=== PATIENT | female | born 1975 | race Asian ===

== ENCOUNTER → 2018-05-24 | Day surgery (SDC) | payer OTHER ==
--- NOTE | 2018-05-25 18:51 | PATH ---
Surgical Pathology Report Patient Name: ANGELIA DEL RIO [facility]. Rec. #: [id number] /Age/Gender: 1975 (Age: 42) / F Account: [id number] Location: RADIOLOGY [facility] Taken: 05/24/2018 Received: 05/24/2018 Reported: 05/25/2018 Physicians: Chandni Prado M.D. Specimen(s) Received A: LEFT BREAST 12-2:00 B: LEFT BREAST 2:00 Clinical History Palpable mass Mammographic findings, ultrasound findings: Highly suspicious/malignant Final Diagnosis A. Breast, left, 12-2:00, core biopsy: Invasive DUCTAL carcinoma, POORLY DIFFERENTIATED, measuring at least 1.1 cm in this material. B. Breast, left, 2:00, core biopsy: Invasive DUCTAL carcinoma, POORLY DIFFERENTIATED, measuring at least 9 MM in this material. Comment: Immunohistochemical stain performed (part A) and interpreted at [facility] show E-cadherin is positive, supportive of ductal phenotype. ER, WV, Her2 (IHC) & Ki-67 studies are pending. Findings will be reported separately. Findings discussed with Dr. Hoskins. Electronically Signed Opal Alvarado M.D. Addendum Reported: 05/26/2018 Addendum Diagnosis Results of Estrogen Receptor (ER) and Progesterone Receptor (WV) studies performed on block "A" at [facility] are as follows: ER (clone [id number] mouse monoclonal antibody by [employer]): ~30% nuclear staining with weak to moderate intensity (Positive). WV (clone16 mouse monoclonal antibody by [employer]): 0% nuclear staining (Negative). Positive and negative controls (internal if applicable) show appropriate results. Formalin fixation and cold ischemic times are within current ASCO/CAP recommendations for ER, WV and Her2 testing. Results of Her2 (IHC) & Ki-67 studies performed on block "A" at [place], [place] ([id number]) are as follows: Her2 IHC (EP3 from [employer], formerly known as [id number], using [employer]o Polymer Refine detection kit): 3+ (Positive). Ki-67: ~45% (High proliferative index). Positive and negative controls (internal if applicable) show appropriate results. Opal Alvarado M.D. Gross Description A. Received in formalin labeled "left 12-2 o'clock," are 3 rivers-yellow, cylindrical portions of fibroadipose tissue ranging from 1.0-1.3 cm in length and averaging 0.1 cm diameter. The specimens are submitted in toto in one cassette. B. Received in formalin labeled "left breast 2:00," are 2 rivers-yellow, cylindrical portions of fibroadipose tissue averaging 1.1 cm in length and averaging 0.1 cm in diameter. The specimens are submitted in toto in one cassette. Time to formalin fixation: Less than one minute Total formalin fixation time: Approximately 7 hours. 05/24/2018 saudi05/24/2018
== END | disposition home or self-care (01) ==
LOC: JRADUS 09:16 → JRADUS-SUR 09:28 → EDSTATUS 10:00
PROVIDERS: ATTEND Internal Medicine
PROC: 0HBU3ZX Excision of Left Breast, Percutaneous Approach, Diagnostic (ICD-10-PCS; principal; 2018-05-24)
DX: C50.412 Malignant neoplasm of upper-outer quadrant of left female breast (principal)
CPT/HCPCS: 19083; 19084; 77065-TC; 87899; 88305-TC; 88342-TC; A4648

== ENCOUNTER → 2018-06-26 | Day surgery (SDC) | payer OTHER ==
--- NOTE | 2018-06-27 07:01 | OP ---
DATE OF OPERATION: 06/26/2018 PREOPERATIVE DIAGNOSIS: Left axillary adenopathy, suspicious. POSTOPERATIVE DIAGNOSIS: Left axillary adenopathy, suspicious. PROCEDURE PERFORMED: Left ultrasound-guided core biopsy and clip placement. ANESTHESIA: Local. ATTENDING SURGEON: Katie Gusman MD ESTIMATED BLOOD LOSS: Minimal. COMPLICATIONS: None. DESCRIPTION OF PROCEDURE: The patient was made aware of the risks and benefits of the procedure and consented. She was placed in the supine position. Under sterile conditions, with 1% lidocaine for local anesthesia, a small loida was made in the skin. Using an inferolateral approach, under ultrasound guidance, with a 13-gauge needle, multiple cores were obtained and submitted to Pathology. Likewise, under ultrasound guidance, a HydroMARK open clip placed into the biopsy region. This was well tolerated by the patient. Steri-Strips and a sterile bandage were applied. We will contact her with the results. KATIE GUSMAN M.D. [id number]
--- NOTE | 2018-06-27 15:34 | PATH ---
Surgical Pathology Report Patient Name: ANGELIA DEL RIO Med. Rec. #: [id number] /Age/Gender: 1975 (Age: 42) / F Account: [id number] Location: [facility] Taken: 06/26/2018 Received: 06/26/2018 Reported: 06/27/2018 Physicians: Chandni Oswald M.D. Specimen(s) Received LEFT AXILLA LYMPH NODE BIOPSY Clinical History Non-palpable lesion Ultrasound findings: Highly suspicious/malignant Final Diagnosis LYMPH NODE, LEFT AXILLA, CORE BIOPSY: METASTATIC CARCINOMA, EXTENSIVELY INVOLVING LYMPH NODE, CONSISTENT WITH ORIGIN FROM KNOWN LEFT BREAST PRIMARY. Comment: See also concurrent left breast core biopsy report ([id number]). Electronically Signed Iris Cardona M.D. Gross Description Received in formalin, labeled "left axilla, lymph node, biopsy" are five cores of light rivers and yellow rivers tissue admixed with blood clot, ranging from 0.5-1.3 cm in length with a diameter up to 0.2 cm. Entirely submitted in one cassette. Time to formalin fixation: Not given. Total formalin fixation: Approximately 8 hours AE/06/26/2018 ebram/06/26/2018
== END | disposition home or self-care (01) ==
LOC: FRADUS-SUR 08:40
PROVIDERS: ATTEND Surgery Surgical Oncology
PROC: 07B63ZX Excision of Left Axillary Lymphatic, Percutaneous Approach, Diagnostic (ICD-10-PCS; principal; 2018-06-26)
PROC: BH47ZZZ Ultrasonography of Upper Extremity (ICD-10-PCS; 2018-06-26)
DX: C77.3 Secondary and unspecified malignant neoplasm of axilla and upper limb lymph nodes (principal); R59.9 Enlarged lymph nodes, unspecified
CPT/HCPCS: 19083; 38505; 76942; 87899; 88305-TC; A4648

== ENCOUNTER 2018-06-29 10:34 | Day surgery (SDC) | payer OTHER ==
[2018-06-22 13:42] VITALS: BMI 32.2
--- NOTE | 2018-06-22 13:42 | HP ---
Admitting History and Physical - Primary Care Physician PCP: Allen Rubio - Admission Chief Complaint: Left breast cancer History of Present Illness: 43 year old premenapausal female with family H/O breast and ovarian cancer who found a palpable mass left breast 12:00 in May 2018. Mammogram and US showed 6.3. cm left breast UOQ and mutiple masses shruthi 12 to 2:00 region largest 3.5 cm. US core biopsy of both regions 12 to 2:00 and 2:00 showed invasive ductal carcinoma ER weakly + /CA - HER2 +. She is here for life port insertion for neoadjuvant chemotherapy. History Source: Patient Limitations to Obtaining History: No Limitations - Past Medical History Cardiovascular: Yes: HTN ...LMP: 07/17/14 - Past Surgical History Past Surgical History: Yes: None - Smoking History Smoking history: Never smoked - Alcohol/Substance Use Hx Alcohol Use: No Home Medications - Allergies Allergies/Adverse Reactions: Allergies Allergy/AdvReac Type Severity Reaction Status Date / Time No Known Allergies Allergy Verified 09/29/14 18:30 - Home Medications Home Medications: Ambulatory Orders Amlodipine Besylate 5 mg PO DAILY 06/22/18 Family Disease History - Family Disease History Family Disease History: CA: Grandparent (mat GM ovarian cancer 60's), Sister ( breast ca 46) Physical Examination Constitutional: Yes: Well Nourished Breast(s): Yes: Other ( c cup breast which are symmetrical palpable 4 cm mass flt left breast 12:00 periareolar border whcih is feely mobile no palpable densities in right breast or adenopathy bilaterally) Problem List - Problems (1) Breast cancer, left breast Code(s): C50.912 - MALIGNANT NEOPLASM OF UNSPECIFIED SITE OF LEFT FEMALE BREAST Qualifiers: Breast location: areola Estrogen receptor status: positive Patient sex: female Qualified Code(s): C50.012 - Malignant neoplasm of nipple and areola, left female breast; Z17.0 - Estrogen receptor positive status [ER+] Assessment/Plan Life port insertion for chemotherapy
[2018-06-29] MEDS ORDERED: LIDOCAINE HCL 1% PRESERVATIVE FREE - 30ML VIAL ONE (11:26)
[2018-06-29] MEDS ORDERED: LIDOCAINE HCL 1%, 10 MG/ML (50 mL VIAL) IJ ONE ×2 (13:19)
[2018-06-29] MEDS ORDERED: BUPIVACAINE HCL 0.25% 125 MG/50 ML VIAL ONE (13:45)
[2018-06-29] MEDS ORDERED: BUPIVACAINE HCL/PF 0.25% (2.5MG/ML) 10 ML VIAL IJ ONE (13:48)
[2018-06-29] MEDS ORDERED: KETOROLAC TROMETHAMINE 30 MG/1 ML VIAL IVPUSH PRN (14:00)
[2018-06-29] MEDS ORDERED: DEXTROSE 5%-0.45% SALINE 1,000 ML IV SCH (14:00)
[2018-06-29] MEDS ORDERED: ONDANSETRON 4 MG/2 ML VIAL IVPUSH PRN ×2 (14:00→14:01)
[2018-06-29] MEDS ORDERED: oxyCODONE HCL 5 MG TABLET PO PRN ×2 (14:01)
[2018-06-29] MEDS ORDERED: LACTATED RINGERS SOLUTION 1,000 ML IV SCH (14:15)
[2018-06-29 15:24] VITALS: PULSE 67; TEMP 97.3
[2018-06-29 16:15] VITALS: BP 138/79
== END 2018-06-29 16:30 | disposition home or self-care (01) ==
LOC: FASU 10:34
PROVIDERS: ATTEND Surgery Surgical Oncology
PROC: B518ZZA Fluoroscopy of Superior Vena Cava, Guidance (ICD-10-PCS; 2018-06-29)
PROC: 02HV33Z Insertion of Infusion Device into Superior Vena Cava, Percutaneous Approach (ICD-10-PCS; principal; 2018-06-29 13:10)
DX: C50.412 Malignant neoplasm of upper-outer quadrant of left female breast (principal)
CPT/HCPCS: 36561; 77001; C1788; 71045-TC-FY; 84703; J1644

== ENCOUNTER 2018-07-25 07:15 | Day surgery (SDC) | payer OTHER ==
[2018-07-25] MEDS ORDERED: ACETAMINOPHEN 325 MG TABLET (FP) PO ONE (09:00)
[2018-07-25] MEDS ORDERED: DEXAMETHASONE SODIUM PHOSPHATE 20 MG, DIPHENHYDRAMINE 50 MG in SODIUM CHLORIDE 100 ML IVPB ONE (09:00)
[2018-07-25] MEDS ORDERED: PALONOSETRON HCL 0.25 MG/5 ML VIAL IVPUSH ONE (09:00)
[2018-07-25] MEDS ORDERED: FOSAPREPITANT DIMEGLUMINE 150 MG in SODIUM CHLORIDE 145 ML IVPB ONE (09:00)
[2018-07-25] MEDS ORDERED: PERTUZUMAB 840 MG in SODIUM CHLORIDE 250 ML IVPB ONE (09:30)
[2018-07-25 09:42] LABS: HEMATOCRIT 33.3 % (32.4-45.2); HEMOGLOBIN 10.7 GM/dL (10.7-15.3); MCH 22.3 pg (25.7-33.7); MEAN CELL VOLUME 69.6 fl (80-96); RBC 4.78 M/mm3 (3.60-5.2); RDW 18.3 % (11.6-15.6); WHITE BLOOD COUNT 6.2 K/mm3 (4.0-10.0)
[2018-07-25 09:49] LABS: PLATELET COUNT 387 K/MM3 (134-434)
[2018-07-25 10:06] LABS: ANION GAP 4 MMOL/L (8-16); BLOOD UREA NITROGEN 10.8 mg/dL (7-18); CALCIUM 9.3 mg/dL (8.5-10.1); CHLORIDE 106 mmol/L (98-107); CO2 29 mmol/L (21-32); CREATININE 0.8 mg/dL (0.55-1.3); GLUCOSE,RANDOM 92 mg/dL (74-106); POTASSIUM 4.2 mmol/L (3.5-5.1); SODIUM 140 mmol/L (136-145)
[2018-07-25 10:23] LABS: EOS % 3.5 % (0-4.5); LYMPH % 28.9 % (8-40); MONO % 7.8 % (3.8-10.2); NEUT % 58.8 % (42.8-82.8)
[2018-07-25] MEDS ORDERED: TRASTUZUMAB IVPB ONE (10:30)
[2018-07-25] MEDS ORDERED: SODIUM CHLORIDE IVPB ONE ×2 (10:30→13:00)
[2018-07-25] MEDS ORDERED: SODIUM CHLORIDE IV ONE (12:00)
[2018-07-25] MEDS ORDERED: DOCETAXEL IV ONE (12:00)
[2018-07-25] MEDS ORDERED: CARBOPLATIN IVPB ONE (13:00)
[2018-07-25 16:56] VITALS: TEMP 98
[2018-07-25] MEDS ORDERED: PORTA CATH FLUSH 10 ML IVPUSH ONE (16:56)
[2018-07-25 17:51] VITALS: BP 155/89; PULSE 70
== END 2018-07-25 17:53 | disposition home or self-care (01) ==
LOC: JONCCHEMO 07:15 → J7W 08:47 → JONCCHEMO 17:53
PROVIDERS: ATTEND Internal Medicine Hematology & Oncology
DX: Z51.11 Encounter for antineoplastic chemotherapy (principal); C50.912 Malignant neoplasm of unspecified site of left female breast
CPT/HCPCS: 36415; 80048; 82378; 84702; 85025; 85027; 86300; 96367; 96375; 96413; 96415; 96417; J1453; J2469; J9171; J9306; J9355

== ENCOUNTER 2018-07-26 08:55 | Day surgery (SDC) | payer OTHER ==
[2018-07-26] MEDS ORDERED: PEGFILGRASTIM 6 MG/0.6 ML DISP.SYRIN SQ ONE (16:00)
[2018-07-26 18:33] VITALS: BP 131/81; PULSE 89; TEMP 98.5
== END 2018-07-26 16:00 | disposition home or self-care (01) ==
LOC: JONCCHEMO 08:55 → J7W 15:27 → JONCCHEMO 16:00
PROVIDERS: ATTEND Internal Medicine Hematology & Oncology
PROC: 3E013GC Introduction of Other Therapeutic Substance into Subcutaneous Tissue, Percutaneous Approach (ICD-10-PCS; principal; 2018-07-26)
DX: C50.912 Malignant neoplasm of unspecified site of left female breast (principal); Z76.89 Persons encountering health services in other specified circumstances
CPT/HCPCS: 96372; J2505

== ENCOUNTER 2018-08-15 07:17 | Day surgery (SDC) | payer OTHER ==
[2018-08-15] MEDS ORDERED: DEXAMETHASONE SODIUM PHOSPHATE 20 MG, DIPHENHYDRAMINE 50 MG in SODIUM CHLORIDE 100 ML IVPB ONE (10:00)
[2018-08-15] MEDS ORDERED: PALONOSETRON HCL 0.25 MG/5 ML VIAL IVPUSH ONE (10:00)
[2018-08-15] MEDS ORDERED: ACETAMINOPHEN 325 MG TABLET (FP) PO ONE (10:00)
[2018-08-15] MEDS ORDERED: FOSAPREPITANT DIMEGLUMINE 150 MG in SODIUM CHLORIDE 150 ML IVPB ONE (10:00)
[2018-08-15] MEDS ORDERED: PERTUZUMAB 420 MG in SODIUM CHLORIDE 250 ML IVPB ONE ×2 (10:30→12:00)
[2018-08-15 10:43] LABS: BASO % 2.8 % (0-2.0); HEMATOCRIT 28.8 % (32.4-45.2); LYMPH % 23.6 % (8-40); MCH 21.9 pg (25.7-33.7); MCHC 31.4 g/dl (32.0-36.0); MEAN CELL VOLUME 69.9 fl (80-96); MEAN PLT VOLUME 7.6 fl (7.5-11.1); NEUT % 63.6 % (42.8-82.8); PLATELET COUNT 421 K/MM3 (134-434); RBC 4.12 M/mm3 (3.60-5.2); RDW 18.7 % (11.6-15.6)
[2018-08-15] MEDS ORDERED: TRASTUZUMAB IVPB ONE (11:00)
[2018-08-15] MEDS ORDERED: SODIUM CHLORIDE IVPB ONE ×2 (11:00→12:30)
[2018-08-15 11:10] LABS: ALBUMIN 3.7 g/dl (3.4-5.0); BILIRUBIN,DIRECT 0.1 mg/dL (0.0-0.2); BILIRUBIN,TOTAL 0.4 mg/dL (0.2-1); BLOOD UREA NITROGEN 12.3 mg/dL (7-18); CALCIUM 8.9 mg/dL (8.5-10.1); CREATININE 0.8 mg/dL (0.55-1.3); MAGNESIUM 2.6 mg/dL (1.8-2.4); POTASSIUM 3.9 mmol/L (3.5-5.1); TOT PROT 7.2 g/dl (6.4-8.2)
[2018-08-15] MEDS ORDERED: DOCETAXEL IV ONE (11:30)
[2018-08-15] MEDS ORDERED: SODIUM CHLORIDE IV ONE (11:30)
[2018-08-15] MEDS ORDERED: CARBOPLATIN IVPB ONE (12:30)
[2018-08-15 12:39] LABS: ANISOCYTOSIS 1+; MACROCYTOSIS 0; OVALOCYTE 1+; PLATELET ESTIMATE NORMAL; TEAR DROP CELLS 1+
[2018-08-15 19:03] VITALS: BP 144/89; PULSE 76; TEMP 98.2
[2018-08-15] MEDS ORDERED: PORTA CATH FLUSH 10 ML IVPUSH ONE (19:03)
== END 2018-08-15 18:30 | disposition home or self-care (01) ==
LOC: JONCCHEMO 07:17 → J7W 12:21 → JONCCHEMO 18:30
PROVIDERS: ATTEND Internal Medicine Hematology & Oncology
DX: Z51.11 Encounter for antineoplastic chemotherapy (principal); C50.912 Malignant neoplasm of unspecified site of left female breast
CPT/HCPCS: 36415; 80048; 80076; 83735; 85025; 96367; 96375; 96413; 96417; J1453; J2469; J9171; J9306; J9355

== ENCOUNTER 2018-08-16 06:53 | Day surgery (SDC) | payer OTHER ==
[2018-08-16] MEDS ORDERED: PEGFILGRASTIM 6 MG/0.6 ML DISP.SYRIN SQ ONE (10:00)
[2018-08-16] MEDS ORDERED: SODIUM CHLORIDE 0.9%/KCL 20 MEQ/1,000 ML INFUS.BAG IV SCH (11:45)
[2018-08-16] MEDS ORDERED: IRON SUCROSE INJECTION 100 MG in SODIUM CHLORIDE 100 ML IVPB ONE (12:00)
[2018-08-16] MEDS ORDERED: DEXAMETHASONE INJECTION 8 MG, ONDANSETRON INJECTION 8 MG in SODIUM CHLORIDE 100 ML IVPUSH ONE (12:00)
[2018-08-16 16:09] VITALS: TEMP 98
[2018-08-16] MEDS ORDERED: PORTA CATH FLUSH 10 ML IVPUSH ONE (16:13)
[2018-08-16 16:14] VITALS: BP 135/86; PULSE 80
[2018-08-17] MEDS ORDERED: SODIUM CHLORIDE 0.9%/KCL 20 MEQ/1,000 ML INFUS.BAG IV SCH (12:00)
[2018-08-17] MEDS ORDERED: DEXAMETHASONE INJECTION 8 MG, ONDANSETRON INJECTION 8 MG in SODIUM CHLORIDE 100 ML IVPUSH ONE (12:00)
== END 2018-08-16 15:45 | disposition home or self-care (01) ==
LOC: JONCCHEMO 06:53 → J7W 11:03 → JONCCHEMO 15:45
PROVIDERS: ATTEND Internal Medicine Hematology & Oncology
PROC: 3E043GC Introduction of Other Therapeutic Substance into Central Vein, Percutaneous Approach (ICD-10-PCS; principal; 2018-08-16)
PROC: 3E043GC Introduction of Other Therapeutic Substance into Central Vein, Percutaneous Approach (ICD-10-PCS; 2018-08-16)
DX: C50.912 Malignant neoplasm of unspecified site of left female breast (principal); E61.1 Iron deficiency
CPT/HCPCS: 96361; 96365; 96367; 96372; 96375; 96417; J1100; J1756; J2405; J2505

== ENCOUNTER 2018-08-17 05:59 | Day surgery (SDC) | payer OTHER ==
[2018-08-17] MEDS ORDERED: POTASSIUM CHLORIDE 20 MEQ in SODIUM CHLORIDE 500 ML IVPB ONE (10:00)
[2018-08-17] MEDS ORDERED: DEXAMETHASONE INJECTION 8 MG, ONDANSETRON INJECTION 8 MG in SODIUM CHLORIDE 100 ML IVPB ONE (10:00)
[2018-08-17 17:33] VITALS: BP 127/81; PULSE 80; TEMP 98.2
[2018-08-17] MEDS ORDERED: PORTA CATH FLUSH 10 ML IVPUSH ONE (17:33)
== END 2018-08-17 14:30 | disposition home or self-care (01) ==
LOC: JONCCHEMO 05:59 → J7W 11:09 → JONCCHEMO 14:30
PROVIDERS: ATTEND Internal Medicine Hematology & Oncology
PROC: 3E043GC Introduction of Other Therapeutic Substance into Central Vein, Percutaneous Approach (ICD-10-PCS; principal; 2018-08-17)
PROC: 3E0437Z Introduction of Electrolytic and Water Balance Substance into Central Vein, Percutaneous Approach (ICD-10-PCS; 2018-08-17)
DX: C50.912 Malignant neoplasm of unspecified site of left female breast (principal); Z76.89 Persons encountering health services in other specified circumstances
CPT/HCPCS: 96361; 96365; 96367; 96375; 96415; 96417; J1100

== ENCOUNTER 2018-09-05 05:57 | Day surgery (SDC) | payer OTHER ==
[2018-09-05] MEDS ORDERED: DEXAMETHASONE SODIUM PHOSPHATE 20 MG, DIPHENHYDRAMINE 50 MG in SODIUM CHLORIDE 100 ML IVPB ONE (10:00)
[2018-09-05] MEDS ORDERED: ACETAMINOPHEN 325 MG TABLET (FP) PO ONE (10:00)
[2018-09-05] MEDS ORDERED: FOSAPREPITANT DIMEGLUMINE 150 MG in SODIUM CHLORIDE 150 ML IVPB ONE (10:00)
[2018-09-05] MEDS ORDERED: PALONOSETRON HCL 0.25 MG/5 ML VIAL IVPUSH ONE (10:00)
[2018-09-05 10:23] LABS: BASO % 0.6 % (0-2.0); HEMATOCRIT 30.8 % (32.4-45.2); HEMOGLOBIN 9.7 GM/dL (10.7-15.3); LYMPH % 22.9 % (8-40); MCH 22.6 pg (25.7-33.7); MCHC 31.5 g/dl (32.0-36.0); MEAN CELL VOLUME 71.7 fl (80-96); MEAN PLT VOLUME 6.9 fl (7.5-11.1); MONO % 7.6 % (3.8-10.2); NEUT % 68.9 % (42.8-82.8); PLATELET COUNT 405 K/MM3 (134-434); RDW 22.9 % (11.6-15.6); WHITE BLOOD COUNT 4.7 K/mm3 (4.0-10.0)
[2018-09-05] MEDS ORDERED: PERTUZUMAB 420 MG in SODIUM CHLORIDE 250 ML IVPB ONE (10:30)
[2018-09-05 10:46] LABS: ALBUMIN 3.8 g/dl (3.4-5.0); ALK PHOS 115 U/L (45-117); ANION GAP 5 MMOL/L (8-16); BILIRUBIN,DIRECT 0.1 mg/dL (0.0-0.2); BILIRUBIN,TOTAL 0.4 mg/dL (0.2-1); BLOOD UREA NITROGEN 12.4 mg/dL (7-18); CALCIUM 9.2 mg/dL (8.5-10.1); CHLORIDE 110 mmol/L (98-107); CO2 28 mmol/L (21-32); CREATININE 0.8 mg/dL (0.55-1.3); GLUCOSE,RANDOM 83 mg/dL (74-106); MAGNESIUM 2.5 mg/dL (1.8-2.4); POTASSIUM 4.1 mmol/L (3.5-5.1); SGOT/AST 15 U/L (15-37); SGPT/ALT 31 U/L (13-61); SODIUM 144 mmol/L (136-145); TOT PROT 7.5 g/dl (6.4-8.2)
[2018-09-05] MEDS ORDERED: TRASTUZUMAB IVPB ONE (11:00)
[2018-09-05] MEDS ORDERED: SODIUM CHLORIDE IVPB ONE ×2 (11:00→12:30)
[2018-09-05] MEDS ORDERED: DOCETAXEL IV ONE (11:30)
[2018-09-05] MEDS ORDERED: SODIUM CHLORIDE IV ONE (11:30)
[2018-09-05] MEDS ORDERED: CARBOPLATIN IVPB ONE (12:30)
[2018-09-05 14:08] LABS: ANISOCYTOSIS 1+; MACROCYTOSIS 0; OVALOCYTE 1+; PLATELET ESTIMATE NORMAL
[2018-09-05 18:06] VITALS: BP 144/83; PULSE 84; TEMP 98
== END 2018-09-05 17:25 | disposition home or self-care (01) ==
LOC: JONCCHEMO 05:57 → J7W 10:57 → JONCCHEMO 17:25
PROVIDERS: ATTEND Internal Medicine Hematology & Oncology
DX: Z51.11 Encounter for antineoplastic chemotherapy (principal); C50.912 Malignant neoplasm of unspecified site of left female breast
CPT/HCPCS: 36415; 80048; 80076; 83735; 84702; 85025; 96367; 96375; 96413; 96417; J1453; J2469; J9171; J9306; J9355

== ENCOUNTER 2018-09-06 05:42 | Day surgery (SDC) | payer OTHER ==
[2018-09-06] MEDS ORDERED: PEGFILGRASTIM 6 MG/0.6 ML DISP.SYRIN SQ ONE (10:00)
[2018-09-06] MEDS ORDERED: IRON SUCROSE INJECTION 200 MG in SODIUM CHLORIDE 100 ML IVPB ONE ×2 (10:00→13:15)
[2018-09-06] MEDS ORDERED: DEXAMETHASONE SODIUM PHOSPHATE 8 MG, ONDANSETRON INJECTION 8 MG in SODIUM CHLORIDE 100 ML IVPB ONE (10:00)
[2018-09-06] MEDS ORDERED: SODIUM CHLORIDE 0.9%/KCL 20 MEQ/1,000 ML INFUS.BAG IV ONE (10:00)
[2018-09-06 17:01] VITALS: BP 127/78; PULSE 69; TEMP 97.9
[2018-09-06] MEDS ORDERED: PORTA CATH FLUSH 10 ML IVPUSH ONE (17:01)
== END 2018-09-06 19:45 | disposition home or self-care (01) ==
LOC: JONCCHEMO 05:42 → J7W 19:07 → JONCCHEMO 19:40
PROVIDERS: ATTEND Internal Medicine Hematology & Oncology
PROC: 3E043GC Introduction of Other Therapeutic Substance into Central Vein, Percutaneous Approach (ICD-10-PCS; principal; 2018-09-06)
PROC: 3E0437Z Introduction of Electrolytic and Water Balance Substance into Central Vein, Percutaneous Approach (ICD-10-PCS; 2018-09-06)
DX: C50.912 Malignant neoplasm of unspecified site of left female breast (principal); I10 Essential (primary) hypertension
CPT/HCPCS: 96361; 96365; 96367; 96375; 96417; J1756; J2405; J2505

== ENCOUNTER 2018-09-07 05:45 | Day surgery (SDC) | payer OTHER ==
[2018-09-07] MEDS ORDERED: DEXAMETHASONE SODIUM PHOSPHATE 6 MG, ONDANSETRON INJECTION 8 MG in SODIUM CHLORIDE 100 ML IVPB ONE (09:00)
[2018-09-07] MEDS ORDERED: SODIUM CHLORIDE 0.9%/KCL 20 MEQ/1,000 ML INFUS.BAG IV ONE (09:00)
[2018-09-07 16:16] VITALS: TEMP 97.8
[2018-09-07] MEDS ORDERED: PORTA CATH FLUSH 10 ML IVPUSH ONE (16:16)
[2018-09-07 16:18] VITALS: BP 122/90; PULSE 74
== END 2018-09-07 15:00 | disposition home or self-care (01) ==
LOC: JONCCHEMO 05:45 → J7W 11:05 → JONCCHEMO 15:00
PROVIDERS: ATTEND Internal Medicine Hematology & Oncology
PROC: 3E043GC Introduction of Other Therapeutic Substance into Central Vein, Percutaneous Approach (ICD-10-PCS; principal; 2018-09-07)
PROC: 3E0437Z Introduction of Electrolytic and Water Balance Substance into Central Vein, Percutaneous Approach (ICD-10-PCS; 2018-09-07)
DX: C50.912 Malignant neoplasm of unspecified site of left female breast (principal); I10 Essential (primary) hypertension
CPT/HCPCS: 96361; 96365; 96367; 96375; J2405

== ENCOUNTER 2018-09-26 07:22 | Day surgery (SDC) | payer OTHER ==
[2018-09-26 09:06] LABS: BASO % 0.8 % (0-2.0); HEMATOCRIT 32.9 % (32.4-45.2); HEMOGLOBIN 10.5 GM/dL (10.7-15.3); LYMPH % 24.3 % (8-40); MCH 24.5 pg (25.7-33.7); MEAN CELL VOLUME 76.7 fl (80-96); MEAN PLT VOLUME 6.9 fl (7.5-11.1); MONO % 9.7 % (3.8-10.2); NEUT % 65.2 % (42.8-82.8); PLATELET COUNT 308 K/MM3 (134-434); RBC 4.29 M/mm3 (3.60-5.2); RDW 27.8 % (11.6-15.6); WHITE BLOOD COUNT 4.7 K/mm3 (4.0-10.0)
[2018-09-26] MEDS ORDERED: PALONOSETRON HCL 0.25 MG/5 ML VIAL IVPUSH ONE (09:30)
[2018-09-26] MEDS ORDERED: DEXAMETHASONE SODIUM PHOSPHATE 20 MG, DIPHENHYDRAMINE 50 MG in SODIUM CHLORIDE 100 ML IVPB ONE (09:30)
[2018-09-26] MEDS ORDERED: FOSAPREPITANT DIMEGLUMINE 150 MG in SODIUM CHLORIDE 145 ML IVPB ONE (09:30)
[2018-09-26] MEDS ORDERED: ACETAMINOPHEN 325 MG TABLET (FP) PO ONE (09:30)
[2018-09-26 09:35] LABS: ALBUMIN 3.8 g/dl (3.4-5.0); ALK PHOS 114 U/L (45-117); ANION GAP 5 MMOL/L (8-16); BILIRUBIN,DIRECT 0.1 mg/dL (0.0-0.2); BILIRUBIN,TOTAL 0.4 mg/dL (0.2-1); BLOOD UREA NITROGEN 16.5 mg/dL (7-18); CALCIUM 9.2 mg/dL (8.5-10.1); CHLORIDE 109 mmol/L (98-107); CO2 29 mmol/L (21-32); CREATININE 0.7 mg/dL (0.55-1.3); GLUCOSE,RANDOM 86 mg/dL (74-106); MAGNESIUM 2.5 mg/dL (1.8-2.4); SGOT/AST 26 U/L (15-37); SGPT/ALT 50 U/L (13-61); SODIUM 142 mmol/L (136-145); TOT PROT 7.5 g/dl (6.4-8.2)
[2018-09-26] MEDS ORDERED: PERTUZUMAB 420 MG in SODIUM CHLORIDE 250 ML IVPB ONE (10:00)
[2018-09-26] MEDS ORDERED: TRASTUZUMAB IVPB ONE (10:30)
[2018-09-26] MEDS ORDERED: SODIUM CHLORIDE IVPB ONE ×2 (10:30→12:00)
[2018-09-26] MEDS ORDERED: DOCETAXEL IV ONE (11:00)
[2018-09-26] MEDS ORDERED: SODIUM CHLORIDE IV ONE (11:00)
[2018-09-26] MEDS ORDERED: CARBOPLATIN IVPB ONE (12:00)
[2018-09-26 15:19] LABS: ANISOCYTOSIS 2+; MACROCYTOSIS 1+; OVALOCYTE 1+; PLATELET ESTIMATE NORMAL
[2018-09-26 18:19] VITALS: BP 152/94; PULSE 81; TEMP 98.5
[2018-09-26] MEDS ORDERED: PORTA CATH FLUSH 10 ML IVPUSH ONE (18:19)
[2018-09-27 04:11] LABS: CARCINOEMBRYONIC ANTIGEN 2.1 ng/mL (0.0-4.7)
[2018-09-27] MEDS ORDERED: DEXAMETHASONE INJECTION 8 MG, ONDANSETRON INJECTION 8 MG in SODIUM CHLORIDE 100 ML IVPUSH ONE (10:00)
[2018-09-27] MEDS ORDERED: IRON SUCROSE INJECTION 200 MG in SODIUM CHLORIDE 100 ML IVPB ONE (10:00)
[2018-09-27] MEDS ORDERED: DEXTROSE 5%-NORMAL SALINE 1,000 ML IV SCH (11:00)
[2018-09-28] MEDS ORDERED: DEXAMETHASONE INJECTION 8 MG, ONDANSETRON INJECTION 8 MG in SODIUM CHLORIDE 100 ML IVPUSH ONE (10:00)
[2018-09-28] MEDS ORDERED: DEXTROSE 5%-NORMAL SALINE 1,000 ML IV SCH (11:00)
== END 2018-09-26 15:50 | disposition home or self-care (01) ==
LOC: JONCCHEMO 07:22 → J7W 10:20 → JONCCHEMO 15:50
PROVIDERS: ATTEND Internal Medicine Hematology & Oncology
DX: Z51.11 Encounter for antineoplastic chemotherapy (principal); C50.912 Malignant neoplasm of unspecified site of left female breast; I10 Essential (primary) hypertension
CPT/HCPCS: 36415; 80048; 80076; 82085; 82378; 82550; 83735; 84702; 85025; 86300; 96367; 96375; 96413; 96417; J1453; J2469; J9171; J9306; J9355

== ENCOUNTER 2018-09-27 06:56 | Day surgery (SDC) | payer OTHER ==
[2018-09-27] MEDS ORDERED: PEGFILGRASTIM 6 MG/0.6 ML DISP.SYRIN SQ ONE (09:00)
[2018-09-27] MEDS ORDERED: IRON SUCROSE INJECTION 200 MG in SODIUM CHLORIDE 100 ML IVPB ONE (12:00)
[2018-09-27] MEDS ORDERED: DEXTROSE 5%-NORMAL SALINE 1,000 ML IV SCH (12:30)
[2018-09-27] MEDS ORDERED: DEXAMETHASONE INJECTION 8 MG, ONDANSETRON INJECTION 8 MG in SODIUM CHLORIDE 100 ML IVPUSH ONE (13:00)
[2018-09-27 17:37] VITALS: BP 142/82; PULSE 80; TEMP 98.3
[2018-09-28] MEDS ORDERED: DEXTROSE 5%-NORMAL SALINE 1,000 ML IV SCH (12:45)
[2018-09-28] MEDS ORDERED: DEXAMETHASONE INJECTION 4 MG, ONDANSETRON INJECTION 8 MG in SODIUM CHLORIDE 100 ML IVPUSH ONE (12:45)
== END 2018-09-27 15:45 | disposition home or self-care (01) ==
LOC: JONCNONCHE 06:56 → J7W 11:42 → JONCNONCHE 15:45
PROVIDERS: ATTEND Internal Medicine Hematology & Oncology
PROC: 3E033GC Introduction of Other Therapeutic Substance into Peripheral Vein, Percutaneous Approach (ICD-10-PCS; principal; 2018-09-27)
PROC: 3E0337Z Introduction of Electrolytic and Water Balance Substance into Peripheral Vein, Percutaneous Approach (ICD-10-PCS; 2018-09-27)
DX: C50.912 Malignant neoplasm of unspecified site of left female breast (principal); I10 Essential (primary) hypertension
CPT/HCPCS: 96360; 96361; 96365; 96367; 96401; J1756; J2405; J2505

== ENCOUNTER 2018-09-28 07:03 | Day surgery (SDC) | payer OTHER ==
[2018-09-28] MEDS ORDERED: ONDANSETRON 4 MG/2 ML VIAL IVPB ONE (09:30)
[2018-09-28] MEDS ORDERED: DEXAMETHASONE SOD PHOSPHATE 4 MG/1 ML VIAL IVPB ONE (09:30)
[2018-09-28] MEDS ORDERED: DEXTROSE 5%-NORMAL SALINE 1,000 ML IV ONE (09:30)
[2018-09-28] MEDS ORDERED: PORTA CATH FLUSH 10 ML IVPUSH ONE (12:24)
[2018-09-28 12:25] VITALS: BP 140/95; PULSE 83; TEMP 98.1
== END 2018-09-28 12:15 | disposition home or self-care (01) ==
LOC: JONCCHEMO 07:03 → J7W 08:20 → JONCCHEMO 12:15
PROVIDERS: ATTEND Internal Medicine Hematology & Oncology
PROC: 3E043GC Introduction of Other Therapeutic Substance into Central Vein, Percutaneous Approach (ICD-10-PCS; principal; 2018-09-28)
PROC: 3E043GC Introduction of Other Therapeutic Substance into Central Vein, Percutaneous Approach (ICD-10-PCS; 2018-09-28)
DX: C50.912 Malignant neoplasm of unspecified site of left female breast (principal); I10 Essential (primary) hypertension; Z76.89 Persons encountering health services in other specified circumstances
CPT/HCPCS: 96361; 96365; 96367; 96375

== ENCOUNTER 2018-10-17 06:24 | Day surgery (SDC) | payer OTHER | END 2018-10-17 16:10 | disposition home or self-care (01) | LOC: JONCCHEMO 06:24 → J7W 10:27 → JONCCHEMO 16:10 ==

== ENCOUNTER 2018-10-18 05:44 | Day surgery (SDC) | payer OTHER ==
[2018-10-18] MEDS ORDERED: D5-NS + 20 MEQ KCL - 20 MEQ/1,000 ML INFUS.BAG IV ONE (08:15)
[2018-10-18] MEDS ORDERED: IRON SUCROSE INJECTION 200 MG in SODIUM CHLORIDE 100 ML IVPB ONE (10:00)
[2018-10-18] MEDS ORDERED: ONDANSETRON INJECTION 8 MG in SODIUM CHLORIDE 50 ML IVPB ONE (10:00)
[2018-10-18] MEDS: PEGFILGRASTIM (NEULASTA) 6 MG/0.6 ML DISP.SYRIN SQ ONE ×2 (12:22→16:12)
[2018-10-18 17:12] VITALS: BP 128/81
[2018-10-18] MEDS ORDERED: PORTA CATH FLUSH 10 ML IVPUSH ONE (17:12)
[2018-10-18 17:13] VITALS: PULSE 82; TEMP 98.2
== END 2018-10-18 16:30 | disposition home or self-care (01) ==
LOC: JONCCHEMO 05:44 → J7W 10:39 → JONCCHEMO 16:30
PROVIDERS: ATTEND Internal Medicine Hematology & Oncology
PROC: 3E043GC Introduction of Other Therapeutic Substance into Central Vein, Percutaneous Approach (ICD-10-PCS; principal; 2018-10-18)
PROC: 3E043GC Introduction of Other Therapeutic Substance into Central Vein, Percutaneous Approach (ICD-10-PCS; 2018-10-18)
DX: C50.912 Malignant neoplasm of unspecified site of left female breast (principal); E61.1 Iron deficiency; Z76.89 Persons encountering health services in other specified circumstances
CPT/HCPCS: 36415; 84702; 96361; 96365; 96367; 96375; 96417; J1756; J2505

== ENCOUNTER 2018-10-19 08:33 | Day surgery (SDC) | payer OTHER | END 2018-10-19 13:50 | disposition home or self-care (01) | LOC: JONCNONCHE 08:33 → J7W 09:04 → JONCNONCHE 13:50 ==

== ENCOUNTER 2018-11-07 05:38 | Day surgery (SDC) | payer OTHER ==
[2018-11-07] MEDS ORDERED: FOSAPREPITANT DIMEGLUMINE 150 MG in SODIUM CHLORIDE 145 ML IVPB ONE (09:30)
[2018-11-07] MEDS ORDERED: ACETAMINOPHEN 325 MG TABLET (FP) PO ONE (09:30)
[2018-11-07] MEDS ORDERED: DEXAMETHASONE SODIUM PHOSPHATE 20 MG, DIPHENHYDRAMINE 50 MG in SODIUM CHLORIDE 100 ML IVPB ONE (09:30)
[2018-11-07] MEDS ORDERED: PALONOSETRON HCL 0.25 MG/5 ML VIAL IVPUSH ONE (09:30)
[2018-11-07 09:45] LABS: BASO % 0.7 % (0-2.0); HEMATOCRIT 34.5 % (32.4-45.2); HEMOGLOBIN 11.2 GM/dL (10.7-15.3); LYMPH % 25.4 % (8-40); MCHC 32.6 g/dl (32.0-36.0); MEAN CELL VOLUME 86.1 fl (80-96); MEAN PLT VOLUME 7.2 fl (7.5-11.1); MONO % 10.4 % (3.8-10.2); NEUT % 63.5 % (42.8-82.8); PLATELET COUNT 227 K/MM3 (134-434); RBC 4.01 M/mm3 (3.60-5.2); RDW 25.7 % (11.6-15.6)
[2018-11-07] MEDS ORDERED: PERTUZUMAB 420 MG in SODIUM CHLORIDE 250 ML IVPB ONE (10:00)
[2018-11-07 10:18] LABS: ALBUMIN 3.8 g/dl (3.4-5.0); BILIRUBIN,DIRECT 0.1 mg/dL (0.0-0.2); BILIRUBIN,TOTAL 0.3 mg/dL (0.2-1); BLOOD UREA NITROGEN 11.6 mg/dL (7-18); CALCIUM 8.6 mg/dL (8.5-10.1); CREATININE 0.8 mg/dL (0.55-1.3); MAGNESIUM 2.2 mg/dL (1.8-2.4); POTASSIUM 3.6 mmol/L (3.5-5.1); TOT PROT 6.7 g/dl (6.4-8.2)
[2018-11-07] MEDS ORDERED: SODIUM CHLORIDE IVPB ONE ×2 (10:30→12:00)
[2018-11-07] MEDS ORDERED: TRASTUZUMAB IVPB ONE (10:30)
[2018-11-07 11:00] LABS: ANISOCYTOSIS 2+; MACROCYTOSIS 0; PLATELET ESTIMATE NORMAL
[2018-11-07] MEDS ORDERED: DOCETAXEL IV ONE (11:00)
[2018-11-07] MEDS ORDERED: SODIUM CHLORIDE IV ONE (11:00)
[2018-11-07] MEDS ORDERED: CARBOPLATIN IVPB ONE (12:00)
[2018-11-07 16:32] VITALS: BP 148/93; PULSE 88; TEMP 98.2
[2018-11-07] MEDS ORDERED: PORTA CATH FLUSH 10 ML IVPUSH ONE (16:32)
== END 2018-11-07 16:00 | disposition home or self-care (01) ==
LOC: JONCCHEMO 05:38 → J7W 09:24 → JONCCHEMO 16:00
PROVIDERS: ATTEND Internal Medicine Hematology & Oncology
DX: Z51.11 Encounter for antineoplastic chemotherapy (principal); C50.912 Malignant neoplasm of unspecified site of left female breast; E61.1 Iron deficiency
CPT/HCPCS: 36415; 80048; 80076; 83735; 85025; 96367; 96375; 96413; 96417; J1453; J2469; J9171; J9306; J9355

== ENCOUNTER 2018-11-08 05:49 | Day surgery (SDC) | payer OTHER ==
[2018-11-08] MEDS ORDERED: PEGFILGRASTIM 6 MG/0.6 ML DISP.SYRIN SQ ONE (09:00)
[2018-11-08] MEDS ORDERED: DEXAMETHASONE INJECTION 4 MG, ONDANSETRON INJECTION 8 MG in SODIUM CHLORIDE 100 ML IVPB ONE (11:00)
[2018-11-08] MEDS ORDERED: IRON SUCROSE INJECTION 200 MG in SODIUM CHLORIDE 100 ML IVPB ONE (11:00)
[2018-11-08] MEDS ORDERED: MAGNESIUM SULFATE IVPB SCH (11:00)
[2018-11-08] MEDS ORDERED: POTASSIUM CHLORIDE IVPB SCH (11:00)
[2018-11-08] MEDS ORDERED: SODIUM CHLORIDE IVPB SCH (11:00)
[2018-11-08 17:43] VITALS: TEMP 97.6
[2018-11-08 17:44] VITALS: BP 132/84; PULSE 89
== END 2018-11-08 15:00 | disposition home or self-care (01) ==
LOC: JONCCHEMO 05:49 → J7W 09:18 → JONCCHEMO 15:00
PROVIDERS: ATTEND Internal Medicine Hematology & Oncology
PROC: 3E043GC Introduction of Other Therapeutic Substance into Central Vein, Percutaneous Approach (ICD-10-PCS; principal; 2018-11-08)
PROC: 3E043GC Introduction of Other Therapeutic Substance into Central Vein, Percutaneous Approach (ICD-10-PCS; 2018-11-08)
DX: C50.912 Malignant neoplasm of unspecified site of left female breast (principal); D50.9 Iron deficiency anemia, unspecified; Z76.89 Persons encountering health services in other specified circumstances
CPT/HCPCS: 96361; 96365; 96367; 96372; 96375; 96417; J1756; J2505; J7030

== ENCOUNTER 2018-11-09 09:02 | Day surgery (SDC) | payer OTHER ==
[2018-11-09] MEDS ORDERED: SODIUM CHLORIDE 0.9%/KCL 20 MEQ/1,000 ML INFUS.BAG IV SCH ×2 (10:00→11:00)
[2018-11-09] MEDS ORDERED: SODIUM CHLORIDE IVPUSH ONE (10:00)
[2018-11-09] MEDS ORDERED: ONDANSETRON IVPUSH ONE (10:00)
[2018-11-09] MEDS ORDERED: DEXAMETHASONE IVPUSH ONE (10:00)
[2018-11-09] MEDS ORDERED: SODIUM CHLORIDE IVPB SCH (10:30)
[2018-11-09] MEDS ORDERED: POTASSIUM CHLORIDE IVPB SCH (10:30)
[2018-11-09] MEDS ORDERED: SODIUM CHLORIDE 0.9%/KCL 20 MEQ/1,000 ML INFUS.BAG IV ONE (11:00)
[2018-11-09] MEDS ORDERED: PORTA CATH FLUSH 10 ML IVPUSH ONE (15:22)
[2018-11-09 15:23] VITALS: TEMP 98.5
[2018-11-09 15:24] VITALS: BP 129/85; PULSE 81
== END 2018-11-09 13:30 | disposition home or self-care (01) ==
LOC: JONCNONCHE 09:02 → J7W 09:32 → JONCNONCHE 13:30
PROVIDERS: ATTEND Internal Medicine Hematology & Oncology
PROC: 3E043GC Introduction of Other Therapeutic Substance into Central Vein, Percutaneous Approach (ICD-10-PCS; principal; 2018-11-09)
PROC: 3E043GC Introduction of Other Therapeutic Substance into Central Vein, Percutaneous Approach (ICD-10-PCS; 2018-11-09)
DX: C50.112 Malignant neoplasm of central portion of left female breast (principal); E61.1 Iron deficiency; Z76.89 Persons encountering health services in other specified circumstances
CPT/HCPCS: 96360; 96361; 96365

== ENCOUNTER 2018-11-14 12:05 | Day surgery (SDC) | payer OTHER ==
[2018-11-14 11:10] LABS: BASO % 0.9 % (0-2.0); EOS % 0.1 % (0-4.5); HEMATOCRIT 34.6 % (32.4-45.2); HEMOGLOBIN 11.4 GM/dL (10.7-15.3); LYMPH % 34.7 % (8-40); MCH 28.3 pg (25.7-33.7); MCHC 32.9 g/dl (32.0-36.0); MEAN CELL VOLUME 86.1 fl (80-96); MEAN PLT VOLUME 7.7 fl (7.5-11.1); MONO % 22.7 % (3.8-10.2); NEUT % 41.6 % (42.8-82.8); RBC 4.02 M/mm3 (3.60-5.2); RDW 22.8 % (11.6-15.6); WHITE BLOOD COUNT 2.9 K/mm3 (4.0-10.0)
[2018-11-14 11:16] LABS: PLATELET COUNT 99 K/MM3 (134-434)
[2018-11-14 11:34] LABS: ALBUMIN 3.8 g/dl (3.4-5.0); BILIRUBIN,TOTAL 0.3 mg/dL (0.2-1); BLOOD UREA NITROGEN 11.4 mg/dL (7-18); CALCIUM 9.1 mg/dL (8.5-10.1); CREATININE 0.8 mg/dL (0.55-1.3); POTASSIUM 3.9 mmol/L (3.5-5.1); TOT PROT 7.1 g/dl (6.4-8.2)
[2018-11-14 11:36] LABS: INR 0.94 (0.83-1.09); PROTHROMBIN TIME (PATIENT) 11.1 SEC (9.7-13.0)
[2018-11-14] MEDS ORDERED: TBO-FILGRASTIM 480 MCG/0.8 ML DISP.SYRIN SQ ONE (13:30)
[2018-11-14 14:25] VITALS: BP 135/93; PULSE 88; TEMP 98.2
[2018-11-14 14:27] LABS: ANISOCYTOSIS 1+; MACROCYTOSIS 0; PLATELET ESTIMATE DECREASED; TEAR DROP CELLS 1+
== END 2018-11-14 13:30 | disposition home or self-care (01) ==
LOC: JONCNONCHE 12:05 → J7W 12:45 → JONCNONCHE 13:30
PROVIDERS: ATTEND Internal Medicine Hematology & Oncology
PROC: 3E013GC Introduction of Other Therapeutic Substance into Subcutaneous Tissue, Percutaneous Approach (ICD-10-PCS; principal; 2018-11-14)
DX: C50.112 Malignant neoplasm of central portion of left female breast (principal); E61.1 Iron deficiency; Z76.89 Persons encountering health services in other specified circumstances
CPT/HCPCS: 36415; 80053; 82378; 83735; 85025; 85610; 86300; 96372; J1447

== ENCOUNTER 2018-11-28 06:41 | Day surgery (SDC) | payer OTHER ==
[2018-11-28 08:59] LABS: BASO % 0.6 % (0-2.0); HEMATOCRIT 34.2 % (32.4-45.2); HEMOGLOBIN 11.3 GM/dL (10.7-15.3); LYMPH % 25.4 % (8-40); MCH 29.4 pg (25.7-33.7); MCHC 33.1 g/dl (32.0-36.0); MEAN CELL VOLUME 88.8 fl (80-96); MEAN PLT VOLUME 6.4 fl (7.5-11.1); MONO % 8.4 % (3.8-10.2); NEUT % 65.6 % (42.8-82.8); PLATELET COUNT 232 K/MM3 (134-434); RBC 3.85 M/mm3 (3.60-5.2); WHITE BLOOD COUNT 3.5 K/mm3 (4.0-10.0)
[2018-11-28 09:23] LABS: ALBUMIN 3.5 g/dl (3.4-5.0); BILIRUBIN,TOTAL 0.4 mg/dL (0.2-1); BLOOD UREA NITROGEN 11.2 mg/dL (7-18); CALCIUM 8.9 mg/dL (8.5-10.1); CREATININE 0.8 mg/dL (0.55-1.3); MAGNESIUM 2.2 mg/dL (1.8-2.4); POTASSIUM 3.6 mmol/L (3.5-5.1); TOT PROT 6.9 g/dl (6.4-8.2)
[2018-11-28] MEDS ORDERED: DIPHENHYDRAMINE 25 MG in SODIUM CHLORIDE 50 ML IVPB ONE (09:30)
[2018-11-28] MEDS ORDERED: ACETAMINOPHEN 325 MG TABLET (FP) PO ONE (09:30)
[2018-11-28 09:40] LABS: ANISOCYTOSIS 2+; PLATELET ESTIMATE NORMAL
[2018-11-28] MEDS ORDERED: PERTUZUMAB 420 MG in SODIUM CHLORIDE 250 ML IVPB ONE (10:00)
[2018-11-28] MEDS ORDERED: SODIUM CHLORIDE IVPB ONE (10:30)
[2018-11-28] MEDS ORDERED: TRASTUZUMAB IVPB ONE (10:30)
[2018-11-28 13:17] VITALS: TEMP 98.3
[2018-11-28 13:18] VITALS: BP 135/94; PULSE 83
== END 2018-11-28 12:15 | disposition home or self-care (01) ==
LOC: JONCCHEMO 06:41 → J7W 09:45 → JONCCHEMO 12:15
PROVIDERS: ATTEND Internal Medicine Hematology & Oncology
DX: Z51.11 Encounter for antineoplastic chemotherapy (principal); C50.112 Malignant neoplasm of central portion of left female breast; E61.1 Iron deficiency
CPT/HCPCS: 36415; 80053; 83735; 85025; 96375; 96413; 96417; J9306; J9355

== ENCOUNTER 2018-12-19 05:31 | Day surgery (SDC) | payer OTHER ==
[2018-12-19] MEDS ORDERED: ACETAMINOPHEN 325 MG TABLET (FP) PO ONE (10:00)
[2018-12-19] MEDS ORDERED: DIPHENHYDRAMINE 25 MG in SODIUM CHLORIDE 50 ML IVPB ONE (10:00)
[2018-12-19] MEDS ORDERED: PERTUZUMAB 420 MG in SODIUM CHLORIDE 250 ML IVPB ONE (10:30)
[2018-12-19 10:54] LABS: BASO % 1.1 % (0-2.0); EOS % 6.4 % (0-4.5); HEMATOCRIT 39.7 % (32.4-45.2); LYMPH % 33.2 % (8-40); MCH 29.3 pg (25.7-33.7); MCHC 32.7 g/dl (32.0-36.0); MEAN CELL VOLUME 89.8 fl (80-96); MEAN PLT VOLUME 7.4 fl (7.5-11.1); MONO % 7.2 % (3.8-10.2); NEUT % 52.1 % (42.8-82.8); PLATELET COUNT 198 K/MM3 (134-434); RBC 4.42 M/mm3 (3.60-5.2); RDW 16.6 % (11.6-15.6)
[2018-12-19] MEDS ORDERED: TRASTUZUMAB IVPB ONE (11:00)
[2018-12-19] MEDS ORDERED: SODIUM CHLORIDE IVPB ONE (11:00)
[2018-12-19 11:10] LABS: INR 0.93 (0.83-1.09)
[2018-12-19 11:25] LABS: ALBUMIN 3.6 g/dl (3.4-5.0); ALK PHOS 78 U/L (45-117); ANION GAP 4 MMOL/L (8-16); BILIRUBIN,TOTAL 0.4 mg/dL (0.2-1); BLOOD UREA NITROGEN 13.7 mg/dL (7-18); CALCIUM 9.2 mg/dL (8.5-10.1); CHLORIDE 110 mmol/L (98-107); CO2 29 mmol/L (21-32); CREATININE 0.7 mg/dL (0.55-1.3); GLUCOSE,RANDOM 71 mg/dL (74-106); MAGNESIUM 2.3 mg/dL (1.8-2.4); POTASSIUM 3.4 mmol/L (3.5-5.1); SGOT/AST 18 U/L (15-37); SGPT/ALT 30 U/L (13-61); SODIUM 143 mmol/L (136-145); TOT PROT 7.1 g/dl (6.4-8.2)
[2018-12-19 17:25] VITALS: BP 145/89; PULSE 71; TEMP 97.5
== END 2018-12-19 13:50 | disposition home or self-care (01) ==
LOC: JONCCHEMO 05:31 → J7W 10:47 → JONCCHEMO 13:50
PROVIDERS: ATTEND Internal Medicine Hematology & Oncology
DX: Z51.11 Encounter for antineoplastic chemotherapy (principal); C50.112 Malignant neoplasm of central portion of left female breast
CPT/HCPCS: 36415; 80053; 82306; 82378; 83735; 84702; 85025; 85610; 86300; 96375; 96413; 96417; J9306; J9355

== ENCOUNTER 2019-01-16 07:23 | Day surgery (SDC) | payer OTHER ==
[2019-01-16] MEDS ORDERED: DIPHENHYDRAMINE 25 MG in SODIUM CHLORIDE 50 ML IVPB ONE (09:30)
[2019-01-16] MEDS ORDERED: ACETAMINOPHEN 325 MG TABLET (FP) PO ONE (09:30)
[2019-01-16] MEDS ORDERED: PERTUZUMAB 420 MG in SODIUM CHLORIDE 250 ML IVPB ONE (10:00)
[2019-01-16] MEDS ORDERED: TRASTUZUMAB ANNS IVPB ONE (10:30)
[2019-01-16] MEDS ORDERED: SODIUM CHLORIDE IVPB ONE (10:30)
[2019-01-16 14:22] VITALS: TEMP 98.2
[2019-01-16 14:31] VITALS: BP 120/83; PULSE 65
[2019-01-16] MEDS ORDERED: PORTA CATH FLUSH 10 ML IVPUSH ONE (14:31)
== END 2019-01-16 13:00 | disposition home or self-care (01) ==
LOC: JONCCHEMO 07:23 → J7W 11:46 → JONCCHEMO 13:00
PROVIDERS: ATTEND Internal Medicine Hematology & Oncology
DX: Z51.11 Encounter for antineoplastic chemotherapy (principal); C50.112 Malignant neoplasm of central portion of left female breast
CPT/HCPCS: 96375; 96413; 96417; J9306; Q5117

== ENCOUNTER 2019-02-14 08:21 | Day surgery (SDC) | payer OTHER ==
[~2019-02-14 08:21] MED LIST: ACETAMINOPHEN 325 MG TABLET (FP) PO ONE; DIPHENHYDRAMINE 25 MG in SODIUM CHLORIDE 50 ML IVPB ONE; PERTUZUMAB 420 MG in SODIUM CHLORIDE 250 ML IVPB ONE; SODIUM CHLORIDE IVPB ONE; TRASTUZUMAB ANNS IVPB ONE
[2019-02-14 09:05] LABS: BASO % 0.6 % (0-2.0); EOS % 3.7 % (0-4.5); HEMATOCRIT 41.4 % (32.4-45.2); LYMPH % 34.2 % (8-40); MCH 28.4 pg (25.7-33.7); MCHC 33.8 g/dl (32.0-36.0); MEAN CELL VOLUME 83.9 fl (80-96); MEAN PLT VOLUME 7.3 fl (7.5-11.1); MONO % 6.8 % (3.8-10.2); NEUT % 54.7 % (42.8-82.8); PLATELET COUNT 228 K/MM3 (134-434); RBC 4.93 M/mm3 (3.60-5.2); RDW 13.4 % (11.6-15.6); WHITE BLOOD COUNT 5.2 K/mm3 (4.0-10.0)
[2019-02-14 09:27] LABS: INR 0.94 (0.83-1.09); PROTHROMBIN TIME (PATIENT) 11.1 SEC (9.7-13.0)
[2019-02-14] MEDS ORDERED: amLODIPine BESYLATE 5 MG TABLET (FP) PO ONE (09:30)
[2019-02-14 09:31] LABS: ALBUMIN 3.8 g/dl (3.4-5.0); BILIRUBIN,TOTAL 0.5 mg/dL (0.2-1); BLOOD UREA NITROGEN 13.3 mg/dL (7-18); CALCIUM 9.6 mg/dL (8.5-10.1); CREATININE 0.8 mg/dL (0.55-1.3); MAGNESIUM 2.5 mg/dL (1.8-2.4); POTASSIUM 3.7 mmol/L (3.5-5.1); TOT PROT 7.6 g/dl (6.4-8.2)
[2019-02-14] MEDS ORDERED: DIPHENHYDRAMINE 25 MG in SODIUM CHLORIDE 50 ML IVPB ONE (11:00)
[2019-02-14] MEDS ORDERED: ACETAMINOPHEN 325 MG TABLET (FP) PO ONE (11:00)
[2019-02-14] MEDS ORDERED: PERTUZUMAB 420 MG in SODIUM CHLORIDE 250 ML IVPB ONE (11:30)
[2019-02-14] MEDS ORDERED: TRASTUZUMAB ANNS IVPB ONE (12:00)
[2019-02-14] MEDS ORDERED: SODIUM CHLORIDE IVPB ONE (12:00)
[2019-02-14 14:41] VITALS: TEMP 97.9
[2019-02-14 14:53] VITALS: BP 129/87; PULSE 80
[2019-02-14] MEDS ORDERED: PORTA CATH FLUSH 10 ML IVPUSH ONE (14:53)
--- NOTE | 2019-02-14 15:36 | HP ---
Admitting History and Physical - Past Medical History Cardiovascular: Yes: HTN ...LMP: 06/14/18 - Past Surgical History Past Surgical History: Yes: None - Smoking History Smoking history: Never smoked Have you smoked in the past 12 months: No Aproximately how many cigarettes per day: 0 - Alcohol/Substance Use Hx Alcohol Use: No Home Medications - Allergies Allergies/Adverse Reactions: Allergies Allergy/AdvReac Type Severity Reaction Status Date / Time No Known Allergies Allergy Verified 06/29/18 11:12 - Home Medications Home Medications: Ambulatory Orders Amlodipine Besylate 5 mg PO DAILY 06/22/18 Loperamide HCl [Imodium -] 2 mg PO Q8H PRN 08/15/18 Melatonin 3 mg PO HS PRN 08/15/18 Ondansetron [Zofran -] 8 mg PO TID PRN 08/15/18 Physical Examination Vital Signs: Vital Signs Temperature 97.9 F 02/14/19 09:11 Pulse Rate 80 02/14/19 09:11 Respiratory Rate 18 02/14/19 09:11 Blood Pressure 129/87 02/14/19 09:11 O2 Sat by Pulse Oximetry (%) Labs: CBC, BMP 02/14/19 08:46 02/14/19 08:25 Assessment/Plan Patient seen and examined Breast ca -Her-2 positive s/p chemotherapy, on hercptin and perjeta Scheduled for breast surgery next week. Last Vital Signs Temp Pulse Resp BP Pulse Ox 97.9 F 80 18 129/87 02/14/19 09:11 02/14/19 09:11 02/14/19 09:11 02/14/19 09:11 HEENT: JENNIFER, EOM Intact Oropharynx: No thrush, No mucositis Neck: Supple Nodes: Without adenopathy Breasts: Without masses Cor: RSR, No murmurs, No gallops Lungs: Clear to P&A Abd: Soft, Normal bowel sounds, No organomegaly Ext:No significant edema Skin: No rashes, Integument intact CBC, BMP 02/14/19 08:46 02/14/19 08:25 Impression: Breast ca Chemotherapy
== END 2019-02-14 15:49 | disposition home or self-care (01) ==
LOC: JONCCHEMO 08:21 → J7W 09:09 → JONCCHEMO 15:49
PROVIDERS: ATTEND Internal Medicine Hematology & Oncology
DX: Z51.11 Encounter for antineoplastic chemotherapy (principal); C50.112 Malignant neoplasm of central portion of left female breast
CPT/HCPCS: 36415; 80053; 83735; 84703; 85025; 85610; 96375; 96413; 96417; J9306; Q5117

== ENCOUNTER 2019-02-20 05:12 | Inpatient (IN) | payer OTHER ==
--- NOTE | 2019-02-14 16:20 | HP ---
Admitting History and Physical - Primary Care Physician PCP: Allen Rubio - Admission Chief Complaint: Left breast cancer History of Present Illness: 43 year old premenapausal female with strong family H/O breast cancer who found a mass upper aspect of left breast 05/2018 and underwent mammogram and uS showing a 6.3 cm mass in left breast upper outer quadrant with mutiple masses on US from 12 to 200 region with largest 3.5 cm. She underwent two separate US core bxs 05/2018 in left breast 12 to 2:00 with left rbeast 2:00 showing invasive ductal carcinoma Er weakly positive ID negative HER3+ positive. MRI showed left breast cancer 5.1x3.6x5.7 cm with suspicious axillary node. a satelite lesion was also seen at 9:00 anteriorly. Left axillary core bx showed metastatic dz. She received neoadjuvant chemotherapy through Dr Carpenter. Repeat breast MRI 01/2019 showed complete imaging response left breast. History Source: Patient Limitations to Obtaining History: No Limitations - Past Medical History Cardiovascular: Yes: HTN ...LMP: 06/14/18 - Past Surgical History Past Surgical History: Yes: None - Smoking History Smoking history: Never smoked Have you smoked in the past 12 months: No Aproximately how many cigarettes per day: 0 - Alcohol/Substance Use Hx Alcohol Use: No Home Medications - Allergies Allergies/Adverse Reactions: Allergies Allergy/AdvReac Type Severity Reaction Status Date / Time No Known Allergies Allergy Verified 06/29/18 11:12 - Home Medications Home Medications: Ambulatory Orders Amlodipine Besylate 5 mg PO DAILY 06/22/18 Loperamide HCl [Imodium -] 2 mg PO Q8H PRN 08/15/18 Melatonin 3 mg PO HS PRN 08/15/18 Ondansetron [Zofran -] 8 mg PO TID PRN 08/15/18 Family Medical History Family Hx Cancer: Sister (sister breast ca 46 /mat GM ovarian ca 60's) Physical Examination Constitutional: Yes: Well Nourished Breast(s): Yes: Other (c cupmbreasts left breast 4 cm periareolar 12:00 density has dissapeared with chemotherapy, no palpable adenopathy right breast negative) Problem List - Problems (1) Breast cancer, left breast Code(s): C50.912 - MALIGNANT NEOPLASM OF UNSPECIFIED SITE OF LEFT FEMALE BREAST Qualifiers: Breast location: areola Estrogen receptor status: positive Patient sex: female Qualified Code(s): C50.012 - Malignant neoplasm of nipple and areola, left female breast; Z17.0 - Estrogen receptor positive status [ER+] Assessment/Plan Left total mastectomy sentenel node biopsy ,lymphoscintogram, possible axillary node dissection, needle localized left axillary clip for excision reconstruction
[2019-02-20] MEDS ORDERED: BUPIVACAINE LIPOSOME/PF (EXPAREL) 266 MG/20 ML VIAL ONE (07:14)
[2019-02-20] MEDS ORDERED: BUPIVACAINE HCL/PF 0.25% (2.5MG/ML) 10 ML VIAL ONE (07:14)
[2019-02-20] MEDS ORDERED: PAPAVERINE HCL 30 MG/1 ML 10 ML VIAL NR ONE ×2 (07:14→07:47)
[2019-02-20] MEDS ORDERED: ISOSULFAN BLUE 10 MG/ML VIAL SQ ONE ×2 (07:25→07:40)
[2019-02-20] MEDS ORDERED: EPHEDRINE SULFATE/0.9% NACL/PF 50 MG/10 ML SYRINGE NR ONE (07:42)
[2019-02-20] MEDS ORDERED: fentaNYL CITRATE 250 MCG/5 ML VIAL ONE (07:42)
[2019-02-20] MEDS ORDERED: GLYCOPYRROLATE 0.2 MG/1 ML VIAL ONE ×2 (07:42→14:36)
[2019-02-20] MEDS ORDERED: MIDAZOLAM HCL 2 MG/2 ML SINGLE DOSE VIAL ONE (07:43)
[2019-02-20] MEDS ORDERED: ROCURONIUM BROMIDE 50 MG/5 ML SYRINGE ONE ×2 (07:43→10:16)
[2019-02-20] MEDS ORDERED: PROPOFOL 20 ML ONE ×2 (07:43)
[2019-02-20] MEDS ORDERED: SUCCINYLCHOLINE CHLORIDE 200 MG/10 ML SYRINGE ONE (07:43)
[2019-02-20] MEDS ORDERED: HEPARIN NA (PORCINE) 5,000 UNITS/ML 1ML VIAL ONE (07:47)
--- NOTE | 2019-02-20 09:09 | HP ---
History & Physical Update - History History: No Change - Physical Physical: No Change - Assessment Assessment: No Change - Plan Plan: No Change
[2019-02-20] MEDS ORDERED: SCOPOLAMINE HYDROBROMIDE 1 PATCH PATCH.TD72 ONE (10:02)
[2019-02-20] MEDS ORDERED: ceFAZolin SODIUM 1 GM VIAL IVPB ONE (10:10)
[2019-02-20] MEDS ORDERED: HEPARIN NA (PORCINE) 5,000 UNITS/ML 1ML VIAL SQ ONE (10:15)
[2019-02-20] MEDS ORDERED: BUPIVACAINE HCL/PF 0.25% (2.5MG/ML) 10 ML VIAL IJ ONE ×2 (11:02→12:54)
[2019-02-20] MEDS ORDERED: BUPIVACAINE LIPOSOME/PF (EXPAREL) 266 MG/20 ML VIAL NR ONE ×2 (11:02→12:54)
[2019-02-20] MEDS ORDERED: HYDROmorphone HCl 2 MG/ML VIAL ONE (13:50)
[2019-02-20] MEDS ORDERED: ceFAZolin SODIUM 1 GM VIAL ONE (14:36)
[2019-02-20] MEDS ORDERED: ONDANSETRON 4 MG/2 ML VIAL ONE ×2 (14:36)
[2019-02-20] MEDS ORDERED: DEXAMETHASONE SOD PHOSPHATE 4 MG/1 ML VIAL ONE ×2 (14:36)
[2019-02-20] MEDS ORDERED: NEOSTIGMINE METHYLSULFATE 0.5 MG/1 ML - 10 ML MDV ONE (14:36)
[2019-02-20] MEDS ORDERED: traMADol HCL 50 MG TABLET PO PRN (16:16)
[2019-02-20] MEDS ORDERED: ONDANSETRON 4 MG/2 ML VIAL IVPUSH PRN (16:16)
[2019-02-20] MEDS ORDERED: oxyCODONE HCL 5 MG TABLET PO PRN ×3 (16:16→16:25)
[2019-02-20] MEDS ORDERED: hydrOXYzine HCL 100 MG/2 ML VIAL IM PRN (16:25)
[2019-02-20] MEDS ORDERED: diazePAM 5 MG TABLET PO PRN (16:25)
--- NOTE | 2019-02-20 16:28 | SURG ---
Surgery Support Group Manager Note Support Group Manager: Preston Fulton PA-C Date of Service: 02/20/19 Diagnosis: Left breast cancer Procedure: (Left mastectomy performed by breast surgeon Ramiro) Left breast reconstruction after mastectomy with SUE flap (unilateral). I was present for the entirety of the operative procedure. For further detail, please refer to operative report. Visit type - Case Type Case Type: Scheduled - New patient This patient is new to me today: Yes Date on this admission: 02/20/19
[2019-02-20] MEDS ORDERED: LACTATED RINGERS SOLUTION 1,000 ML IV SCH (16:30)
[2019-02-20] MEDS ORDERED: ACETAMINOPHEN 325 MG TABLET (FP) ONE (17:45)
[2019-02-20] MEDS: ASPIRIN 325 MG TABLET PO SCH (17:45)
[2019-02-20] MEDS: ACETAMINOPHEN 325 MG TABLET (FP) PO SCH ×2 (17:45→19:36)
[2019-02-20] MEDS ORDERED: ASPIRIN 325 MG ENTERIC COATED TABLET (FP) ONE (17:45)
[2019-02-20] MEDS: DEXTROSE 5%-0.45% SALINE 1,000 ML IV SCH (18:00)
--- NOTE | 2019-02-20 19:58 | OP ---
DATE OF OPERATION: 02/20/2019 PREOPERATIVE DIAGNOSIS: Left breast cancer, overlapping in upper outer quadrant, status post neoadjuvant chemotherapy. POSTOPERATIVE DIAGNOSIS: Left breast cancer, overlapping in upper outer quadrant, status post neoadjuvant chemotherapy. PROCEDURE: Left breast total mastectomy, skin-sparing type, with left axillary sentinel lymph node biopsy with axillary needle localization and then limited lower axillary lymph node dissection with deep flap reconstruction. ANESTHESIA: General endotracheal anesthesia. PRIMARY SURGEON: Kitty Gray MD. ELECTROLYTIC ETCHER: ADEBAYO Coburn. Primary surgeon for the left breast deep flap reconstruction is Kitty Bella MD. marketing director assisted living and co-surgeon, Jeancarlos Smith MD. COMPLICATIONS: There were no complications. DESCRIPTION OF PROCEDURE: Briefly, the patient is a 43-year-old G1, P0, premenopausal female of -[place] descent. She has a strong family history with her sister who had breast cancer at age 46 and her maternal mother had ovarian cancer in her 60s. The patient felt a left breast mass in May 2018, and mammography ultrasound showed a 6.3-cm left breast upper outer quadrant mass with multiple small satellite lesions from the 12 to 2 o'clock region. She underwent ultrasound guided core biopsies at 2 separate areas, anteriorly and posteriorly, which showed a poorly differentiated invasive ductal cancer, which was ER positive, MD negative, and HER2 positive 3+ with a high Ki-67. MRI showed a 5.1 x 3.6 x 5.7 cm cancer with satellite lesion and suspicious axillary lymph nodes. She underwent a left axillary lymph node biopsy showing metastatic cancer, clip placement, and underwent neoadjuvant chemotherapy with TCHP, a right-sided subclavian vein Port-A-Cath. She finished chemotherapy in November 2018. An MRI showed a complete radiologic response. She was recommended to undergo a left breast mastectomy after genetic testing came back negative with only a BUS seen. She was seen by plastic surgery and decided to go forward with a deep flap reconstruction. She understood the need for a sentinel lymph node biopsy and possible axillary lymph node dissection. She was brought in for the procedure on February 20, 2019, and in the holding area after the lymphoscintigraphy and needle localization of the clip in the left axilla, site verification was made, and informed consent as obtained. She was marked preoperatively by the plastic surgeon. She was then brought into the operating room and laid on the OR table in a supine position. Venodynes were placed on the lower extremities prior to induction. She received 2 g of Ancef prior to incision. The breast as well as abdomen were sterilely prepped and draped in the usual fashion, and 3 mL of Lymphazurin blue were injected intradermally around the left breast nipple-areolar complex. She underwent general endotracheal anesthesia, and a Burnett was placed at the beginning of the case. The plastic surgeons marked out the perforators in the anterior abdominal wall using the SPY skin perfusion device, and then the patient was sterilely prepped and draped in the usual fashion. Timeout was performed. The left axillary sentinel lymph node biopsy was first performed. Incision was made in the left axilla, and dissection was undertaken using the navigator probe to direct the dissection and taking out the needle localization wire with the surrounding tissue in the left axilla. The wire was removed with the surrounding nodes, and specimen radiographs however did not show the clip in question. However, there was an easily felt node that was right at the end of the localization wire, and this was sent for frozen section and came back negative, and did have a 10-second gamma count of 514. Two other hot nodes were found in the level 1 and level 2 region of the left axilla with 10-second gamma counts of 446 and 73. These other 2 nodes were also sent for frozen section, and one came back with prior biopsy site changes and was negative, and the other one was negative as well. All sentinel nodes were thus negative, and background count at this point was 110. We x-rayed all the tissue, could not find the clip, which I think fell out during the axillary node biopsy. I went ahead and performed a limited lower axillary lymph node dissection to remove the entire area of subcutaneous and axillary fat around the area where the needle localization was performed, and this was removed separately and sent separately to pathology as separate axillary tissue, which was actually the limited lower axillary lymph node dissection, and specimen x-ray of this again did not show the clip. Hemostasis was achieved. At this point, the mastectomy was performed using a skin-sparing periareolar incision. Skin flaps were raised superiorly to the level of the clavicle, medially to the level of the sternum, laterally to the level of the platysmas, and inferiorly below the level of the inframammary fold. The breast was taken out off the pectoralis major muscle from medial to lateral, completely removed intact. It was oriented with a long lateral and short superior suture, and specimen radiographs showed removal of both clips in question. Hemostasis was achieved, and the wound was copiously irrigated. A separate anterior margin was then taken and sent separately to pathology as anterior margin with suture marking the biopsy cavity site. Again hemostasis was achieved, and the wound was copiously irrigated. Dr. Bella and Dr. Smith were performing the harvesting of the abdominal deep flap tissue as we were performing the mastectomy. Once the mastectomy was performed, all instruments were removed from the field that we used for the cancer portion of the procedure, and the rest of the procedure will be dictated separately by Dr. Bella and Dr. Smith for the deep flap reconstruction. Estimated blood loss at this point in the case was about 100 mL, and she was hemodynamically stable. All sponge, needle counts were correct at this point in the case. They will dictate the rest of the case, and they did perform a TAP block for abdominal pain relief and will inject Exparel into the chest wall for postoperative pain relief. All wounds will be closed separately by plastic surgery. The patient will be recovered and then brought to the post anesthesia care unit, and then to the ICU for postoperative flap monitoring postoperatively. KITTY GRAY M.D. [id number]
[2019-02-20] MEDS: oxyCODONE HCL 10 MG SUSTAINED ACTING TABLET PO SCH (21:21)
[2019-02-20] MEDS: CEFAZOLIN 1 GM/D5W 1 GM/50 ML BAG IVPB SCH (21:30)
[2019-02-20] MEDS: DOCUSATE SODIUM 100 MG CAPSULE (FP) PO SCH (21:51)
[2019-02-20] MEDS: MUPIROCIN 2% TOPICAL OINTMENT FOR DECOLONIZATION NS SCH (21:51)
[2019-02-20] MEDS: CHLORHEXIDINE GLUCONATE 4% CLEANSER FOR DECOLONIZATION TP SCH (21:52)
--- NOTE | 2019-02-21 00:56 | CONSULT ---
Consultation: REQUESTING PROVIDER: Dr. 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 Was initially diagnosed in 05/2018, and underwent neoadjuvant chemotherapy after core biopsies were completed in 06/2018. LMP was in 06/2018 as reported by patient. Patient had EBL of 100 mL within first half of procedure. Patient complains of pain at the incisions sites in the abdomen. Patient denies passing any flatus, subjective fevers, cough, nausea, vomiting, or headaches. REVIEW OF SYSTEMS: CONSTITUTIONAL: Absent: fever, chills, diaphoresis, generalized weakness, malaise, loss of appetite, weight change HEENT: Absent: rhinorrhea, nasal congestion, throat pain, throat swelling, difficulty swallowing, mouth swelling, ear pain, eye pain, visual changes CARDIOVASCULAR: Absent: chest pain, syncope, palpitations, irregular heart rate, lightheadedness , peripheral edema RESPIRATORY: Absent: cough, shortness of breath, dyspnea with exertion, orthopnea, wheezing, stridor, hemoptysis GASTROINTESTINAL: Absent: abdominal pain, abdominal distension, nausea, vomiting, diarrhea, constipation, melena, hematochezia GENITOURINARY: Absent: dysuria, frequency, urgency, hesitancy, hematuria, flank pain, genital pain MUSCULOSKELETAL: Absent: myalgia, arthralgia, joint swelling, back pain, neck pain SKIN: Absent: rash, itching, pallor HEMATOLOGIC/IMMUNOLOGIC: Absent: easy bleeding, easy bruising, lymphadenopathy, frequent infections ENDOCRINE: Absent: unexplained weight gain, unexplained weight loss, heat intolerance, cold intolerance NEUROLOGIC: Absent: headache, focal weakness or paresthesias, dizziness, unsteady gait, seizure, mental status changes, bladder or bowel incontinence PSYCHIATRIC: Absent: anxiety, depression, suicidal or homicidal ideation, hallucinations. PHYSICAL EXAMINATION Vital Signs - 24 hr 02/20/19 02/20/19 02/20/19 07:58 07:59 16:12 Temperature 97.8 F 98.9 F Pulse Rate 91 H 103 H Respiratory 20 18 Rate Blood Pressure 141/98 142/90 O2 Sat by Pulse 99 100 Oximetry (%) 02/20/19 02/20/19 02/20/19 16:25 16:40 16:55 Temperature Pulse Rate 104 H 104 H 103 H Respiratory 16 14 14 Rate Blood Pressure 138/90 145/88 125/82 O2 Sat by Pulse 98 98 97 Oximetry (%) 02/20/19 02/20/19 02/20/19 17:10 17:25 17:40 Temperature Pulse Rate 102 H 104 H 102 H Respiratory 16 16 16 Rate Blood Pressure 127/78 130/78 128/79 O2 Sat by Pulse 98 98 98 Oximetry (%) 02/20/19 02/20/19 02/20/19 17:55 18:05 18:28 Temperature 98.2 F Pulse Rate 104 H 104 H 115 H Respiratory 14 16 21 H Rate Blood Pressure 131/77 129/86 135/88 O2 Sat by Pulse 99 99 Oximetry (%) 02/20/19 02/20/19 02/20/19 18:31 18:49 20:44 Temperature Pulse Rate 95 H Respiratory 21 H 18 Rate Blood Pressure 106/74 O2 Sat by Pulse 96 98 Oximetry (%) 02/20/19 02/20/19 02/20/19 20:49 21:58 22:00 Temperature 97.4 F L 98.2 F Pulse Rate 94 H 97 H Respiratory 18 17 Rate Blood Pressure 110/80 109/80 O2 Sat by Pulse 98 Oximetry (%) 02/21/19 00:00 Temperature Pulse Rate 89 Respiratory 17 Rate Blood Pressure 101/64 O2 Sat by Pulse Oximetry (%) GENERAL: Awake, alert, and fully oriented, in no acute distress. HEAD: Normal with no signs of trauma. EYES: PERRLA, EOMI NECK: Normal range of motion LUNGS: Breath sounds equal, clear to auscultation bilaterally. No wheezes, and no crackles. No accessory muscle use. HEART: Regular rate and rhythm, normal S1 and S2 without murmur, rub or gallop. CHEST: Left breast shows no discharge. ABDOMEN: Soft, nontender, not distended, absent bowel sounds. Incision sites present, no bleeding or discharge present. Drains placed, filling with blood. MUSCULOSKELETAL: Normal range of motion at all joints. No bony deformities or tenderness. No CVA tenderness. UPPER EXTREMITIES: 2+ pulses, warm, well-perfused. No cyanosis. No clubbing. Cap refill <2 seconds. No peripheral edema. LOWER EXTREMITIES: 2+ pulses, warm, well-perfused. No calf tenderness. No peripheral edema. NEUROLOGICAL: Cranial nerves II-XII intact. Normal speech. Normal gait. PSYCHIATRIC: Cooperative. Good eye contact. Appropriate mood and affect. SKIN: Warm, dry, normal turgor, no rashes or lesions noted. Laboratory Results - last 24 hr 02/20/19 02/20/19 07:35 09:40 Urine HCG, Qual Negative Blood Type O POSITIVE Antibody Screen Negative Active Medications Generic Name Dose Route Start Last Admin Trade Name Freq PRN Reason Stop Dose Admin Acetaminophen 650 mg 02/20/19 16:30 02/20/19 19:36 Tylenol - PO 02/23/19 16:29 Not Given Q6H [facility] Amlodipine Besylate 5 mg 02/21/19 22:00 Norvasc - PO HS [facility] Aspirin 325 mg 02/21/19 10:00 02/20/19 17:45 Asa - PO 325 mg DAILY [facility] Administration Chlorhexidine Gluconate 1 applic 02/20/19 22:00 02/20/19 21:52 Hibiclens For Decolonization - TP 1 applic HS [facility] Administration Diazepam 5 mg 02/20/19 16:25 Valium - PO Q8H PRN ANXIETY Docusate Sodium 100 mg 02/20/19 22:00 02/20/19 21:51 Colace - PO 100 mg BID [facility] Administration Enoxaparin Sodium 40 mg 02/21/19 10:00 Lovenox - SQ DAILY [facility] Fentanyl 50 mcg 02/20/19 16:16 02/20/19 16:25 Sublimaze Injection - IVPUSH 50 mcg [id number] PRN Administration PAIN-PACU ORDER X 4 DOSES ONLY Hydroxyzine HCl 25 mg 02/20/19 16:25 Vistaril Injection - IM Q6H PRN FOR ITCHING Cefazolin Sodium 1 gm in 50 mls @ 100 mls/hr 02/20/19 20:00 Ancef 1 Gm Premixed Ivpb - IVPB 02/21/19 09:29 Q6H-IV [facility] Dextrose/Sodium Chloride 1,000 mls @ 100 mls/hr 02/20/19 16:30 02/20/19 18:00 D5-1/2ns - IV 0 mls ASDIR [facility] Administration Dextrose/Sodium Chloride 1,000 mls @ 75 mls/hr 02/21/19 08:00 D5-1/2ns - IV ASDIR [facility] Mupirocin 1 applic 02/20/19 22:00 02/20/19 21:51 Bactroban Ointment (For Decolonization) - NS 02/25/19 21:59 1 applic BID [facility] Administration Ondansetron HCl 4 mg 02/20/19 16:16 Zofran Injection IVPUSH Q6H PRN NAUSEA AND/OR VOMITING Oxycodone HCl 5 mg 02/20/19 16:16 Roxicodone - PO Q3H PRN PAIN LEVEL 4 - 6 Oxycodone HCl 10 mg 02/20/19 16:16 Roxicodone - PO Q3H PRN PAIN LEVEL 7 - 10 Oxycodone HCl 10 mg 02/20/19 22:00 02/20/19 21:21 Oxycontin - PO 02/23/19 16:16 Not Given BID [facility] Tramadol HCl 50 mg 02/20/19 16:16 Ultram - PO Q3H PRN PAIN LEVEL 1 - 3 ASSESSMENT/PLAN: 43F PMH 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 Neuro/Psych -AAOx3 -Continue to monitor -Valium PRN -Oxycodone PRN -Tramadol PRN Cardiovascular -Hx of HTN -Continue Amlodipine -Continuous cardiac monitoring Pulmonary -Patient was extubated after procedure -Satting 100% on RA -Maintain O2 saturation >92% GI -clear liquid diet starting in AM -patient has absent bowel sounds -Drains in place, will remove as per Surgery recommendations -Plastic Surgery consulted, appreciate recs Renal -Patient stable, continue to monitor ID -Patient afebrile -Given cefazolin Heme/Onc -Patient has strong family history of breast cancer -Invasive ductal carcinoma (ER and HER2 positive, CT negative. -S/P chemotherapy -F/U biopsy results from operation -plastic surgery following, appreciate recommendations. F: D5/0.5 NS @ 83 E: Monitor CMP N: NPO Lines: patient has only peripheral IVs DVT: Lovenox 40 daily Dispo: We will continue to follow the patient. Thank you for this consultative opportunity. Visit type - Emergency Visit Emergency Visit: Yes ED Registration Date: 02/20/19 Care time: The patient presented to the Emergency Department on the above date and was hospitalized for further evaluation of their emergent condition. - New Patient This patient is new to me today: Yes Date on this admission: 02/20/19 - Critical Care Critical Care patient: Yes Total Critical Care Time (in minutes): 45 Critical Care Statement: The care of this patient involved high complexity decision making to prevent further life threatening deterioration of the patient 's condition and/or to evaluate & treat vital organ system(s) failure or risk of failure. ATTENDING PHYSICIAN STATEMENT I saw and evaluated the patient. I reviewed the resident's note and discussed the case with the resident. I agree with the resident's findings and plan as documented. SUBJECTIVE: OBJECTIVE: ASSESSMENT AND PLAN:
[2019-02-21] MEDS ORDERED: ceFAZolin SODIUM 1 GM VIAL ONE ×2 (02:56→09:00)
[2019-02-21] MEDS ORDERED: DEXTROSE 5%-WATER - 50 ML IVPB ONE ×2 (02:56→09:01)
[2019-02-21] MEDS: CEFAZOLIN 1 GM in DEXTROSE 5%-WATER - 50 ML IVPB SCH ×2 (02:58→09:11)
[2019-02-21] MEDS: ACETAMINOPHEN 325 MG TABLET (FP) PO SCH ×4 (03:21→17:53)
[2019-02-21] MEDS: DEXTROSE 5%-0.45% SALINE 1,000 ML IV SCH ×3 (05:56→16:42)
[2019-02-21 06:21] LABS: HEMATOCRIT 31.7 % (32.4-45.2); HEMOGLOBIN 10.9 GM/dL (10.7-15.3); LYMPH % 7.5 % (8-40); MCH 28.7 pg (25.7-33.7); MCHC 34.5 g/dl (32.0-36.0); MEAN CELL VOLUME 83.4 fl (80-96); MEAN PLT VOLUME 7.4 fl (7.5-11.1); MONO % 8.1 % (3.8-10.2); NEUT % 84.4 % (42.8-82.8); PLATELET COUNT 220 K/MM3 (134-434); RDW 13.8 % (11.6-15.6); WHITE BLOOD COUNT 10.2 K/mm3 (4.0-10.0)
[2019-02-21 07:22] LABS: ALBUMIN 2.8 g/dl (3.4-5.0); BILIRUBIN,TOTAL 0.6 mg/dL (0.2-1); BLOOD UREA NITROGEN 20.8 mg/dL (7-18); CALCIUM 8.7 mg/dL (8.5-10.1); MAGNESIUM 1.8 mg/dL (1.8-2.4); PHOSPHOROUS 4.2 mg/dL (2.5-4.9); POTASSIUM 4.2 mmol/L (3.5-5.1); TOT PROT 5.7 g/dl (6.4-8.2)
--- NOTE | 2019-02-21 07:40 | PN ---
Progress Note, Physician Chief Complaint: Left breast cancer overlapping regions with metastatic disease to axillary nodes s/p neoadjuvant chemotherapy History of Present Illness: The patient was diagnosed with a left breast cancer with known positive left axillary lymph node by needle biopsy. The cancer was HER2+ and she under went neoadjuvant chemotherapy with TCHP with a complete radiologic response. She now presented for a left breast total mastectomy with lymph node biopsy/ evaluation and SUE flap reconstruction and is admitted postoperatively for pain and wound management. - Current Medication List Current Medications: Active Medications Acetaminophen (Tylenol -) 650 mg PO Q6H [facility] Stop: 02/23/19 16:29 Last Admin: 02/21/19 05:58 Dose: 650 mg Amlodipine Besylate (Norvasc -) 5 mg PO HS [facility] Aspirin (Asa -) 325 mg PO DAILY [facility] Last Admin: 02/20/19 17:45 Dose: 325 mg Chlorhexidine Gluconate (Hibiclens For Decolonization -) 1 applic TP HS [facility] Last Admin: 02/20/19 21:52 Dose: 1 applic Diazepam (Valium -) 5 mg PO Q8H PRN PRN Reason: ANXIETY Docusate Sodium (Colace -) 100 mg PO BID [facility] Last Admin: 02/20/19 21:51 Dose: 100 mg Enoxaparin Sodium (Lovenox -) 40 mg SQ DAILY [facility] Fentanyl (Sublimaze Injection -) 50 mcg IVPUSH [id number] PRN PRN Reason: PAIN-PACU ORDER X 4 DOSES ONLY Last Admin: 02/20/19 16:25 Dose: 50 mcg Hydroxyzine HCl (Vistaril Injection -) 25 mg IM Q6H PRN PRN Reason: FOR ITCHING Dextrose/Sodium Chloride (D5-1/2ns -) 1,000 mls @ 100 mls/hr IV ASDIR [facility] Last Admin: 02/20/19 18:00 Dose: 0 mls Dextrose/Sodium Chloride (D5-1/2ns -) 1,000 mls @ 75 mls/hr IV ASDIR [facility] Last Admin: 02/21/19 05:56 Dose: 75 mls/hr Cefazolin Sodium 1 gm/ (Dextrose) 50 mls @ 100 mls/hr IVPB Q6H-IV [facility] Stop: 02/21/19 09:29 Last Admin: 02/21/19 02:58 Dose: 100 mls/hr Cefazolin Sodium 1 gm/ (Dextrose) 50 mls @ 100 mls/hr IVPB ONCE ONE Stop: 02/21/19 15:29 Mupirocin (Bactroban Ointment (For Decolonization) -) 1 applic NS BID [facility] Stop: 02/25/19 21:59 Last Admin: 02/20/19 21:51 Dose: 1 applic Ondansetron HCl (Zofran Injection) 4 mg IVPUSH Q6H PRN PRN Reason: NAUSEA AND/OR VOMITING Oxycodone HCl (Roxicodone -) 5 mg PO Q3H PRN PRN Reason: PAIN LEVEL 4 - 6 Oxycodone HCl (Roxicodone -) 10 mg PO Q3H PRN PRN Reason: PAIN LEVEL 7 - 10 Oxycodone HCl (Oxycontin -) 10 mg PO BID [facility] Stop: 02/23/19 16:16 Last Admin: 02/20/19 21:21 Dose: Not Given Tramadol HCl (Ultram -) 50 mg PO Q3H PRN PRN Reason: PAIN LEVEL 1 - 3 - Objective Vital Signs: Vital Signs Temperature 98.1 F 02/21/19 02:00 Pulse Rate 68 02/21/19 06:00 Respiratory Rate 17 02/21/19 06:00 Blood Pressure 109/72 02/21/19 06:00 O2 Sat by Pulse Oximetry (%) 98 02/20/19 20:49 Constitutional: Yes: Well Nourished, No Distress, Calm Eyes: Yes: WNL HENT: Yes: Atraumatic, Normocephalic Neck: Yes: Supple, Trachea Midline Cardiovascular: Yes: Regular Rate and Rhythm Respiratory: Yes: Regular, CTA Bilaterally Gastrointestinal: Yes: Normal Bowel Sounds, Soft ...Rectal Exam: Yes: Deferred Genitourinary: Yes: WNL Breast(s): Yes: Other (Left SUE flap and skin flaps warm and viable. Flap with excellent dopplerable pulse. Drains functioning well. Abdominal wound site clean, dry, and intact.) Musculoskeletal: Yes: WNL Extremities: Yes: WNL Neurological: Yes: WNL ...Motor Strength: WNL Psychiatric: Yes: WNL, Alert, Oriented Labs: CBC, BMP 02/21/19 05:20 02/21/19 05:20 Problem List - Problems (1) Breast cancer, left breast Assessment/Plan: The patient is doing well POD#1 s/p left breast total mastectomy with sentinel lymph node biopsy and limited lower axillary dissection for an overlapping node positive HER2+ invasive ductal cancer s/p neoadjuvant TCHP. Her wounds are healing nicely with viable skin flaps and the SUE flap is viable and warm with a good dopplerable pulse. The drains are functioning well. She has good pain control and did receive and intraop TAP block and exparel to chest wall. May be OOB to chair today and advance diet in afternoon to regular. May remove quintana when OOB. Continue antibiotics and maintain continued doppler monitoring of flap. Problems reviewed: Yes Code(s): C50.912 - MALIGNANT NEOPLASM OF UNSPECIFIED SITE OF LEFT FEMALE BREAST Qualifiers: Breast location: overlapping sites of breast Estrogen receptor status: positive Patient sex: female Qualified Code(s): C50.812 - Malignant neoplasm of overlapping sites of left female breast; Z17.0 - Estrogen receptor positive status [ER+]
[2019-02-21] MEDS: ASPIRIN 325 MG TABLET PO SCH (09:10)
[2019-02-21] MEDS: ENOXAPARIN NA (PORCINE) 40 MG/0.4 ML DISP.SYRIN SQ SCH (09:11)
[2019-02-21] MEDS: DOCUSATE SODIUM 100 MG CAPSULE (FP) PO SCH ×2 (09:13→22:14)
--- NOTE | 2019-02-21 09:20 | PN ---
Teaching Attending Note Name of Resident: Jocy Moncada ATTENDING PHYSICIAN STATEMENT I saw and evaluated the patient. I reviewed the resident's note and discussed the case with the resident. I agree with the resident's findings and plan as documented. SUBJECTIVE: Patient seen and examined in the ICU. Awake and alert. Pain seems to adequately controlled. No CP or SOB. Intake & Output 02/18/19 02/19/19 02/20/19 02/21/19 23:59 23:59 23:59 23:59 Intake Total 2800 982 Output Total 1040 485 Balance 1760 497 Weight 78 lb 1.6 oz Last Vital Signs Temp Pulse Resp BP Pulse Ox 98.1 F 78 17 98/66 98 02/21/19 02:00 02/21/19 08:00 02/21/19 08:00 02/21/19 08:00 02/20/19 20:49 Active Medications Acetaminophen (Tylenol -) 650 mg PO Q6H [facility] Stop: 02/23/19 16:29 Last Admin: 02/21/19 05:58 Dose: 650 mg Amlodipine Besylate (Norvasc -) 5 mg PO [facility] Aspirin (Asa -) 325 mg PO DAILY [facility] Last Admin: 02/20/19 17:45 Dose: 325 mg Chlorhexidine Gluconate (Hibiclens For Decolonization -) 1 applic TP HS [facility] Last Admin: 02/20/19 21:52 Dose: 1 applic Diazepam (Valium -) 5 mg PO Q8H PRN PRN Reason: ANXIETY Docusate Sodium (Colace -) 100 mg PO BID [facility] Last Admin: 02/20/19 21:51 Dose: 100 mg Enoxaparin Sodium (Lovenox -) 40 mg SQ DAILY [facility] Fentanyl (Sublimaze Injection -) 50 mcg IVPUSH [id number] PRN PRN Reason: PAIN-PACU ORDER X 4 DOSES ONLY Last Admin: 02/20/19 16:25 Dose: 50 mcg Hydroxyzine HCl (Vistaril Injection -) 25 mg IM Q6H PRN PRN Reason: FOR ITCHING Dextrose/Sodium Chloride (D5-1/2ns -) 1,000 mls @ 100 mls/hr IV ASDIR [facility] Last Admin: 02/20/19 18:00 Dose: 0 mls Dextrose/Sodium Chloride (D5-1/2ns -) 1,000 mls @ 75 mls/hr IV ASDIR [facility] Last Admin: 02/21/19 05:56 Dose: 75 mls/hr Cefazolin Sodium 1 gm/ (Dextrose) 50 mls @ 100 mls/hr IVPB Q6H-IV [facility] Stop: 02/21/19 09:29 Last Admin: 02/21/19 02:58 Dose: 100 mls/hr Cefazolin Sodium 1 gm/ (Dextrose) 50 mls @ 100 mls/hr IVPB ONCE ONE Stop: 02/21/19 15:29 Mupirocin (Bactroban Ointment (For Decolonization) -) 1 applic NS BID [facility] Stop: 02/25/19 21:59 Last Admin: 02/20/19 21:51 Dose: 1 applic Ondansetron HCl (Zofran Injection) 4 mg IVPUSH Q6H PRN PRN Reason: NAUSEA AND/OR VOMITING Oxycodone HCl (Roxicodone -) 5 mg PO Q3H PRN PRN Reason: PAIN LEVEL 4 - 6 Oxycodone HCl (Roxicodone -) 10 mg PO Q3H PRN PRN Reason: PAIN LEVEL 7 - 10 Oxycodone HCl (Oxycontin -) 10 mg PO BID [facility] Stop: 02/23/19 16:16 Last Admin: 02/20/19 21:21 Dose: Not Given Tramadol HCl (Ultram -) 50 mg PO Q3H PRN PRN Reason: PAIN LEVEL 1 - 3 GENERAL: Awake, alert, and fully oriented, in no acute distress. HEAD: Normal with no signs of trauma. EYES: PERRLA, EOMI NECK: Normal range of motion LUNGS: Breath sounds equal, clear to auscultation bilaterally. No wheezes, and no crackles. No accessory muscle use. HEART: Regular rate and rhythm, normal S1 and S2 without murmur, rub or gallop. CHEST: Left breast shows no discharge. ABDOMEN: Soft, nontender, not distended, absent bowel sounds. Incision sites present, no bleeding or discharge present. Drains placed, filling with blood. MUSCULOSKELETAL: Normal range of motion at all joints. No bony deformities or tenderness. No CVA tenderness. UPPER EXTREMITIES: 2+ pulses, warm, well-perfused. No cyanosis. No clubbing. Cap refill <2 seconds. No peripheral edema. LOWER EXTREMITIES: 2+ pulses, warm, well-perfused. No calf tenderness. No peripheral edema. NEUROLOGICAL: Non-focal PSYCHIATRIC: Cooperative. Good eye contact. Appropriate mood and affect. SKIN: Warm, dry, normal turgor, no rashes or lesions noted. Laboratory Results - last 24 hr 02/20/19 02/21/19 02/21/19 09:40 05:20 05:20 WBC 10.2 H RBC 3.80 Hgb 10.9 Hct 31.7 L D MCV 83.4 MCH 28.7 MCHC 34.5 RDW 13.8 Plt Count 220 MPV 7.4 L Absolute Neuts (auto) 8.6 H Neutrophils % 84.4 H D Lymphocytes % 7.5 L D Monocytes % 8.1 Eosinophils % 0.0 D Basophils % 0.0 Nucleated RBC % 0 Sodium 139 Potassium 4.2 Chloride 106 Carbon Dioxide 27 Anion Gap 6 L BUN 20.8 H Creatinine 1.0 Est GFR (CKD-EPI)AfAm 79.35 Est GFR (CKD-EPI)NonAf 68.46 Random Glucose 119 H Calcium 8.7 Phosphorus 4.2 Magnesium 1.8 Total Bilirubin 0.6 AST 17 ALT 21 Alkaline Phosphatase 67 Total Protein 5.7 L Albumin 2.8 L Blood Type O POSITIVE Antibody Screen Negative ASSESSMENT/PLAN: POD #1: Left Mastectomy and reconstruction Left breast invasvise ductal carcinoma (ER positive, HER2 positive, ME negative ) S/P chemotherapy HTN Flap checks Incentive Spirometry O2 as needed PO as tolerated OOB to chair DC quintana Floor when cleared by surgery Dr Irizarry
[2019-02-21] MEDS: MUPIROCIN 2% TOPICAL OINTMENT FOR DECOLONIZATION NS SCH ×2 (09:26→22:14)
--- NOTE | 2019-02-21 09:47 | PN ---
Progress Note (short form) - Note Progress Note: Plastic Surgery 43yo F s/p left breast total mastectomy with lymph node biopsy/evaluation and SUE flap reconstruction and is admitted postoperatively for pain and wound management. Pt states she is feeling well. States pain is well controlled. Denies fever, chills, n/v, cp, sob. Last Vital Signs Temp Pulse Resp BP Pulse Ox 98.1 F 78 17 98/66 98 02/21/19 02:00 02/21/19 08:00 02/21/19 08:00 02/21/19 08:00 02/20/19 20:49 CBC, BMP 02/21/19 05:20 02/21/19 05:20 PE: Gen: A&O X3 Resp: breathing comfortably Chest/abd: Left SUE flap and skin flaps warm and viable. Flap with excellent dopplerable pulse. Drains functioning well. Abdominal wound site clean, dry, and intact Problem List - Problems (1) Breast cancer, left breast Assessment/Plan: Plan -pt appears to be doing well, OOB to chair with warmer -adv diet as tolerated -pain control Code(s): C50.912 - MALIGNANT NEOPLASM OF UNSPECIFIED SITE OF LEFT FEMALE BREAST Qualifiers: Breast location: overlapping sites of breast Estrogen receptor status: positive Patient sex: female Qualified Code(s): C50.812 - Malignant neoplasm of overlapping sites of left female breast; Z17.0 - Estrogen receptor positive status [ER+]
[2019-02-21] MEDS: oxyCODONE HCL 10 MG SUSTAINED ACTING TABLET PO SCH ×2 (12:00→22:15)
[2019-02-21] MEDS ORDERED: CEFAZOLIN 1 GM in DEXTROSE 5%-WATER - 50 ML IVPB ONE (15:00)
--- NOTE | 2019-02-21 15:49 | PN ---
Physical Exam: SUBJECTIVE: Patient seen and examined. No acute events. Monitoring post-op day # 1. OBJECTIVE: Vital Signs Period Temp Pulse Resp BP Sys/Zavala Pulse Ox Last 24 Hr 97.4 F-98.9 F 64-115 14-23 91-145/63-90 96-100 GENERAL: The patient is awake, alert, and fully oriented, in no acute distress. HEENT: NCAT CHEST: CTABL. L breast SUE flap c/d/i no signs of infection, minimal tenderness. HEART: Regular rate and rhythm, S1, S2 without murmur, rub or gallop. ABDOMEN: Soft NTND. Suprapubic scar from graft c/d/i EXTREMITIES: 2+ pulses, warm, well-perfused, no edema. NEUROLOGICAL:nonfocal exam PSYCH: Normal mood, normal affect. SKIN: Warm, dry, normal turgor, no rashes or lesions noted Laboratory Results - last 24 hr 02/21/19 02/21/19 05:20 05:20 WBC 10.2 H RBC 3.80 Hgb 10.9 Hct 31.7 L D MCV 83.4 MCH 28.7 MCHC 34.5 RDW 13.8 Plt Count 220 MPV 7.4 L Absolute Neuts (auto) 8.6 H Neutrophils % 84.4 H D Lymphocytes % 7.5 L D Monocytes % 8.1 Eosinophils % 0.0 D Basophils % 0.0 Nucleated RBC % 0 Sodium 139 Potassium 4.2 Chloride 106 Carbon Dioxide 27 Anion Gap 6 L BUN 20.8 H Creatinine 1.0 Est GFR (CKD-EPI)AfAm 79.35 Est GFR (CKD-EPI)NonAf 68.46 Random Glucose 119 H Calcium 8.7 Phosphorus 4.2 Magnesium 1.8 Total Bilirubin 0.6 AST 17 ALT 21 Alkaline Phosphatase 67 Total Protein 5.7 L Albumin 2.8 L Active Medications Generic Name Dose Route Start Last Admin Trade Name Freq PRN Reason Stop Dose Admin Acetaminophen 650 mg 02/20/19 16:30 02/21/19 12:00 Tylenol - PO 02/23/19 16:29 650 mg Q6H [facility] Administration Amlodipine Besylate 5 mg 02/21/19 22:00 Norvasc - PO HS [facility] Aspirin 325 mg 02/21/19 10:00 02/21/19 09:10 Asa - PO 325 mg DAILY [facility] Administration Chlorhexidine Gluconate 1 applic 02/20/19 22:00 02/20/19 21:52 Hibiclens For Decolonization - TP 1 applic HS [facility] Administration Diazepam 5 mg 02/20/19 16:25 Valium - PO Q8H PRN ANXIETY Docusate Sodium 100 mg 02/20/19 22:00 02/21/19 09:13 Colace - PO 100 mg BID [facility] Administration Enoxaparin Sodium 40 mg 02/21/19 10:00 02/21/19 09:11 Lovenox - SQ 40 mg DAILY [facility] Administration Fentanyl 50 mcg 02/20/19 16:16 02/20/19 16:25 Sublimaze Injection - IVPUSH 50 mcg [id number] PRN Administration PAIN-PACU ORDER X 4 DOSES ONLY Hydroxyzine HCl 25 mg 02/20/19 16:25 Vistaril Injection - IM Q6H PRN FOR ITCHING Dextrose/Sodium Chloride 1,000 mls @ 100 mls/hr 02/20/19 16:30 02/20/19 18:00 D5-1/2ns - IV 0 mls ASDIR [facility] Administration Dextrose/Sodium Chloride 1,000 mls @ 75 mls/hr 02/21/19 08:00 02/21/19 09:26 D5-1/2ns - IV Not Given ASDIR [facility] Mupirocin 1 applic 02/20/19 22:00 02/21/19 09:26 Bactroban Ointment (For Decolonization) - NS 02/25/19 21:59 1 applic BID [facility] Administration Ondansetron HCl 4 mg 02/20/19 16:16 Zofran Injection IVPUSH Q6H PRN NAUSEA AND/OR VOMITING Oxycodone HCl 5 mg 02/20/19 16:16 Roxicodone - PO Q3H PRN PAIN LEVEL 4 - 6 Oxycodone HCl 10 mg 02/20/19 16:16 Roxicodone - PO Q3H PRN PAIN LEVEL 7 - 10 Oxycodone HCl 10 mg 02/20/19 22:00 02/21/19 12:00 Oxycontin - PO 02/23/19 16:16 10 mg BID [facility] Administration Tramadol HCl 50 mg 02/20/19 16:16 Ultram - PO Q3H PRN PAIN LEVEL 1 - 3 ASSESSMENT/PLAN: 43 y.o. F no significant personal past medical history but significant family hx of breast & ovarian CA. POD #1 for L mastectomy + reconstruction w/ drain placement #ROLLED HAM LACER -AOx3 -no acute issues #CV -EKG 02/16: NSR qtc 418 -normocardic no acute issues -continue asa, norvasc #Pulm -continue incentive spirometer -satting well on RA, maintain >90% #Heme/Onc -L breast invasice ductal ca -s/p adjuvant chemotherapy (herceptin, perjeta) via L chemoport -f/u L breast surgical biopsy #GI -bowel sounds heard on exam this morning -lower abdominal incision c/d/i #ID -s/p ancef post op -afebrile; wbc 10.2, f/u AM cbc #FENLTD -D51/2NS @83cc/hr -monitor bmp replete lytes as needed -tolerating cardiac diet -peripheral line -surgical drain in place LLQ monitor outputs #PPX -LVX 40 sq daily #Pain control -tramadol 50 q3 prn -oxycodone 10mg po q3h prn -tylenol 650mg po q6h prn #Dispo -continue to monitor in icu Visit type - Emergency Visit Emergency Visit: No - New Patient This patient is new to me today: Yes Date on this admission: 02/21/19 - Critical Care Critical Care patient: Yes Total Critical Care Time (in minutes): 45 Critical Care Statement: The care of this patient involved high complexity decision making to prevent further life threatening deterioration of the patient 's condition and/or to evaluate & treat vital organ system(s) failure or risk of failure. ATTENDING PHYSICIAN STATEMENT I saw and evaluated the patient. I reviewed the resident's note and discussed the case with the resident. I agree with the resident's findings and plan as documented. SUBJECTIVE: OBJECTIVE: ASSESSMENT AND PLAN:
[2019-02-21] MEDS ORDERED: oxyCODONE HCL 5 MG TABLET PO PRN (16:26)
[2019-02-21] MEDS: CHLORHEXIDINE GLUCONATE 4% CLEANSER FOR DECOLONIZATION TP SCH (22:14)
[2019-02-21] MEDS: amLODIPine BESYLATE 5 MG TABLET (FP) PO SCH (22:14)
[2019-02-22] MEDS: ACETAMINOPHEN 325 MG TABLET (FP) PO SCH ×5 (03:06→22:30)
[2019-02-22 06:34] LABS: HEMATOCRIT 30.9 % (32.4-45.2); HEMOGLOBIN 10.4 GM/dL (10.7-15.3); MCH 28.5 pg (25.7-33.7); MCHC 33.7 g/dl (32.0-36.0); MEAN CELL VOLUME 84.6 fl (80-96); MEAN PLT VOLUME 7.3 fl (7.5-11.1); PLATELET COUNT 204 K/MM3 (134-434); RBC 3.66 M/mm3 (3.60-5.2); RDW 14.1 % (11.6-15.6)
[2019-02-22 07:01] LABS: BILIRUBIN,TOTAL 0.2 mg/dL (0.2-1); BLOOD UREA NITROGEN 23.4 mg/dL (7-18); CALCIUM 8.7 mg/dL (8.5-10.1); CREATININE 0.8 mg/dL (0.55-1.3); MAGNESIUM 2.1 mg/dL (1.8-2.4); PHOSPHOROUS 2.5 mg/dL (2.5-4.9); POTASSIUM 3.7 mmol/L (3.5-5.1)
--- NOTE | 2019-02-22 09:51 | CONSULT ---
Consult - Past Medical History Cardio/Vascular: Yes: HTN ...LMP: 06/14/18 - Past Surgical History Past Surgical History: Yes: None - Alcohol/Substance Use Hx Alcohol Use: No - Smoking History Smoking history: Never smoked Have you smoked in the past 12 months: No Aproximately how many cigarettes per day: 0 Home Medications - Allergies Allergies/Adverse Reactions: Allergies Allergy/AdvReac Type Severity Reaction Status Date / Time No Known Allergies Allergy Verified 06/29/18 11:12 - Home Medications Home Medications: Ambulatory Orders Amlodipine Besylate 5 mg PO HS 06/22/18 Physical Exam Vital Signs: Vital Signs Temperature 98.3 F 02/22/19 06:00 Pulse Rate 97 H 02/22/19 06:00 Respiratory Rate 20 02/22/19 06:00 Blood Pressure 100/86 02/22/19 06:00 O2 Sat by Pulse Oximetry (%) 96 02/21/19 20:43 Labs: CBC, BMP 02/22/19 05:50 02/22/19 05:50
--- NOTE | 2019-02-22 09:57 | PN ---
Progress Note, Physician Chief Complaint: S/P left mastectomy with SUE reconstruction POD #2 History of Present Illness: Patient was seen today and was noted to be sitting comfortably in a chair. She reports minimal discomfort and is tolerating po well. She has not had a bowel movement yet but is passing gas and voiding well. - Current Medication List Current Medications: Active Medications Acetaminophen (Tylenol -) 650 mg PO Q6H [facility] Stop: 02/23/19 16:29 Last Admin: 02/22/19 06:07 Dose: Not Given Amlodipine Besylate (Norvasc -) 5 mg PO [facility] Last Admin: 02/21/19 22:14 Dose: 5 mg Aspirin (Asa -) 325 mg PO DAILY [facility] Last Admin: 02/21/19 09:10 Dose: 325 mg Chlorhexidine Gluconate (Hibiclens For Decolonization -) 1 applic TP HS [facility] Last Admin: 02/21/19 22:14 Dose: 1 applic Diazepam (Valium -) 5 mg PO Q8H PRN PRN Reason: ANXIETY Docusate Sodium (Colace -) 100 mg PO BID [facility] Last Admin: 02/21/19 22:14 Dose: 100 mg Enoxaparin Sodium (Lovenox -) 40 mg SQ DAILY [facility] Last Admin: 02/21/19 09:11 Dose: 40 mg Fentanyl (Sublimaze Injection -) 50 mcg IVPUSH [id number] PRN PRN Reason: PAIN-PACU ORDER X 4 DOSES ONLY Last Admin: 02/20/19 16:25 Dose: 50 mcg Hydroxyzine HCl (Vistaril Injection -) 25 mg IM Q6H PRN PRN Reason: FOR ITCHING Mupirocin (Bactroban Ointment (For Decolonization) -) 1 applic NS BID [facility] Stop: 02/25/19 21:59 Last Admin: 02/21/19 22:14 Dose: 1 applic Ondansetron HCl (Zofran Injection) 4 mg IVPUSH Q6H PRN PRN Reason: NAUSEA AND/OR VOMITING Oxycodone HCl (Roxicodone -) 5 mg PO Q3H PRN PRN Reason: PAIN LEVEL 4 - 6 Oxycodone HCl (Roxicodone -) 10 mg PO Q3H PRN PRN Reason: PAIN LEVEL 7 - 10 Last Admin: 02/22/19 06:05 Dose: 10 mg Oxycodone HCl (Oxycontin -) 10 mg PO BID [facility] Stop: 02/23/19 16:16 Last Admin: 02/21/19 22:15 Dose: 10 mg Tramadol HCl (Ultram -) 50 mg PO Q3H PRN PRN Reason: PAIN LEVEL 1 - 3 - Objective Vital Signs: Vital Signs Temperature 98.3 F 02/22/19 06:00 Pulse Rate 97 H 02/22/19 06:00 Respiratory Rate 02/22/19 06:00 Blood Pressure 100/86 02/22/19 06:00 O2 Sat by Pulse Oximetry (%) 96 02/21/19 20:43 Constitutional: Yes: Well Nourished, Calm Gastrointestinal: Yes: Other (Abdominal and umbilical incision is clean without discharge or erythema. JPs with serosanginous discharge and maintaining suction.) Breast(s): Yes: Other (The SUE flap noted to have some ecchymosis near the documented pulse area. Strong doppler signal was noted. The incision is clean without discharge or erythema.) Labs: CBC, BMP 02/22/19 05:50 02/22/19 05:50 Problem List - Problems (1) Breast cancer, left breast Code(s): C50.912 - MALIGNANT NEOPLASM OF UNSPECIFIED SITE OF LEFT FEMALE BREAST Qualifiers: Breast location: overlapping sites of breast Estrogen receptor status: positive Patient sex: female Qualified Code(s): C50.812 - Malignant neoplasm of overlapping sites of left female breast; Z17.0 - Estrogen receptor positive status [ER+] Assessment/Plan Plan: director of community services to see patient for VNS services at home upon discharge. Continue current tx regime including monitoring of flap. Patient is to make an appt to see Dr. Rubio and Dr. Bella next week.
--- NOTE | 2019-02-22 09:59 | PN ---
Progress Note (short form) - Note Progress Note: Plastic Surgery POD 2 43yo F s/p left breast total mastectomy with lymph node biopsy/evaluation and SUE flap reconstruction and is admitted postoperatively for pain and wound management. Pt states she is feeling well. States pain is well controlled. Denies fever, chills, n/v, cp, sob. Last Vital Signs Temp Pulse Resp BP Pulse Ox 98.1 F 78 17 98/66 98 02/21/19 02:00 02/21/19 08:00 02/21/19 08:00 02/21/19 08:00 02/20/19 20:49 CBC, BMP 02/21/19 05:20 02/21/19 05:20 PE: Gen: A&O X3 Resp: breathing comfortably Chest/abd: Left SUE flap and skin flaps warm and viable. Flap with excellent dopplerable pulse. Drains functioning well. Abdominal wound site clean, dry, and intact Problem List - Problems (1) Breast cancer, left breast Assessment/Plan: Plan -pt appears to be doing well, will consider discharge later today or tomorrow morning after seen by Dr. Smith -cont oob/ambulate -pain control Pt discussed with Dr. Bella who agrees with plan Code(s): C50.912 - MALIGNANT NEOPLASM OF UNSPECIFIED SITE OF LEFT FEMALE BREAST Qualifiers: Qualified Code(s): C50.812 - Malignant neoplasm of overlapping sites of left female breast; Z17.0 - Estrogen receptor positive status [ER+]
[2019-02-22] MEDS: oxyCODONE HCL 10 MG SUSTAINED ACTING TABLET PO SCH ×2 (10:37→21:45)
[2019-02-22] MEDS: ENOXAPARIN NA (PORCINE) 40 MG/0.4 ML DISP.SYRIN SQ SCH (10:37)
[2019-02-22] MEDS: ASPIRIN 325 MG TABLET PO SCH (10:38)
[2019-02-22] MEDS: DOCUSATE SODIUM 100 MG CAPSULE (FP) PO SCH ×2 (10:39→21:45)
--- NOTE | 2019-02-22 11:13 | PN ---
Teaching Attending Note Name of Resident: Anel Ruffin ATTENDING PHYSICIAN STATEMENT I saw and evaluated the patient. I reviewed the resident's note and discussed the case with the resident. I agree with the resident's findings and plan as documented. SUBJECTIVE: Patient seen and examined in the ICU. OOB to chair. Awake and alert. Pain seems to adequately controlled. No CP or SOB. Intake & Output 02/19/19 02/20/19 02/21/19 02/22/19 23:59 23:59 23:59 23:59 Intake Total 2800 2507 200 Output Total 1040 2535 545 Balance 1760 -28 -583 Weight 171 lb 15.369 oz 163 lb 2.273 oz Last Vital Signs Temp Pulse Resp BP Pulse Ox 98.5 F 108 H 21 H 110/89 94 L 02/22/19 10:00 02/22/19 10:00 02/22/19 10:00 02/22/19 10:00 02/22/19 09:00 Active Medications Acetaminophen (Tylenol -) 650 mg PO Q6H [facility] Stop: 02/23/19 16:29 Last Admin: 02/22/19 06:07 Dose: Not Given Amlodipine Besylate (Norvasc -) 5 mg PO HS [facility] Last Admin: 02/21/19 22:14 Dose: 5 mg Aspirin (Asa -) 325 mg PO DAILY [facility] Last Admin: 02/22/19 10:38 Dose: 325 mg Chlorhexidine Gluconate (Hibiclens For Decolonization -) 1 applic TP [facility] Last Admin: 02/21/19 22:14 Dose: 1 applic Diazepam (Valium -) 5 mg PO Q8H PRN PRN Reason: ANXIETY Docusate Sodium (Colace -) 100 mg PO BID [facility] Last Admin: 02/22/19 10:39 Dose: 100 mg Enoxaparin Sodium (Lovenox -) 40 mg SQ DAILY [facility] Last Admin: 02/22/19 10:37 Dose: 40 mg Fentanyl (Sublimaze Injection -) 50 mcg IVPUSH [id number] PRN PRN Reason: PAIN-PACU ORDER X 4 DOSES ONLY Last Admin: 02/20/19 16:25 Dose: 50 mcg Hydroxyzine HCl (Vistaril Injection -) 25 mg IM Q6H PRN PRN Reason: FOR ITCHING Mupirocin (Bactroban Ointment (For Decolonization) -) 1 applic NS BID [facility] Stop: 02/25/19 21:59 Last Admin: 02/21/19 22:14 Dose: 1 applic Ondansetron HCl (Zofran Injection) 4 mg IVPUSH Q6H PRN PRN Reason: NAUSEA AND/OR VOMITING Oxycodone HCl (Roxicodone -) 5 mg PO Q3H PRN PRN Reason: PAIN LEVEL 4 - 6 Oxycodone HCl (Roxicodone -) 10 mg PO Q3H PRN PRN Reason: PAIN LEVEL 7 - 10 Last Admin: 02/22/19 06:05 Dose: 10 mg Oxycodone HCl (Oxycontin -) 10 mg PO BID [facility] Stop: 02/23/19 16:16 Last Admin: 02/22/19 10:37 Dose: 10 mg Tramadol HCl (Ultram -) 50 mg PO Q3H PRN PRN Reason: PAIN LEVEL 1 - 3 GENERAL: Awake, alert, and fully oriented, in no acute distress. HEAD: Normal with no signs of trauma. EYES: PERRLA, EOMI NECK: Normal range of motion LUNGS: Breath sounds equal, clear to auscultation bilaterally. No wheezes, and no crackles. No accessory muscle use. HEART: Regular rate and rhythm, normal S1 and S2 without murmur, rub or gallop. CHEST: Left breast shows no discharge. ABDOMEN: Soft, nontender, not distended, absent bowel sounds. Incision sites present, no bleeding or discharge present. Drains placed, filling with blood. MUSCULOSKELETAL: Normal range of motion at all joints. No bony deformities or tenderness. No CVA tenderness. UPPER EXTREMITIES: 2+ pulses, warm, well-perfused. No cyanosis. No clubbing. Cap refill <2 seconds. No peripheral edema. LOWER EXTREMITIES: 2+ pulses, warm, well-perfused. No calf tenderness. No peripheral edema. NEUROLOGICAL: Non-focal PSYCHIATRIC: Cooperative. Good eye contact. Appropriate mood and affect. SKIN: Warm, dry, normal turgor, no rashes or lesions noted. 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
--- NOTE | 2019-02-22 11:23 | PN ---
Physical Exam: SUBJECTIVE: Patient seen and examined in the morning. POD#2. No acute events overnight. No events on cardiac monitoring. Complains of pain in the left upper extremity, and discomfort in the incisional site in the abdomen. No complains of chest pain, shortness of breath. Patient has flatus, no bowel movement yet. OBJECTIVE: Vital Signs Period Temp Pulse Resp BP Sys/Zavala Pulse Ox Last 24 Hr 97.3 F-98.5 F 64-108 15-24 97-129/59-89 94-96 GENERAL: Awake, alert, and fully oriented, in no acute distress. HEAD: Normal with no signs of trauma. EYES: PERRLA, EOMI NECK: Normal range of motion LUNGS: Breath sounds equal, clear to auscultation bilaterally. No wheezes, and no crackles. No accessory muscle use. HEART: Regular rate and rhythm, normal S1 and S2 without murmur, rub or gallop. CHEST: Left breast shows no discharge. ABDOMEN: Soft, nontender, not distended, absent bowel sounds. Incision sites present, no bleeding or discharge present. Drains placed, filling with blood. MUSCULOSKELETAL: Normal range of motion at all joints. No bony deformities or tenderness. No CVA tenderness. EXTREMITIES: 2+ pulses, warm, well-perfused. No calf tenderness. No peripheral edema. NEUROLOGICAL: Cranial nerves II-XII intact. Normal speech. Normal gait. PSYCHIATRIC: Cooperative. Good eye contact. Appropriate mood and affect. SKIN: Warm, dry, normal turgor, no rashes or lesions noted. Laboratory Results - last 24 hr 02/22/19 02/22/19 05:50 05:50 WBC 7.0 RBC 3.66 Hgb 10.4 L Hct 30.9 L MCV 84.6 MCH 28.5 MCHC 33.7 RDW 14.1 Plt Count 204 MPV 7.3 L Sodium 142 Potassium 3.7 Chloride 109 H Carbon Dioxide 32 Anion Gap 2 L BUN 23.4 H Creatinine 0.8 Est GFR (CKD-EPI)AfAm 103.92 Est GFR (CKD-EPI)NonAf 89.66 Random Glucose 100 Calcium 8.7 Phosphorus 2.5 Magnesium 2.1 Total Bilirubin 0.2 AST 20 ALT 24 Alkaline Phosphatase 65 Total Protein 6.0 L Albumin 3.0 L Active Medications Generic Name Dose Route Start Last Admin Trade Name Freq PRN Reason Stop Dose Admin Acetaminophen 650 mg 02/20/19 16:30 02/22/19 06:07 Tylenol - PO 02/23/19 16:29 Not Given Q6H [facility] Amlodipine Besylate 5 mg 02/21/19 22:00 02/21/19 22:14 Norvasc - PO 5 mg HS [facility] Administration Aspirin 325 mg 02/21/19 10:00 02/22/19 10:38 Asa - PO 325 mg DAILY [facility] Administration Chlorhexidine Gluconate 1 applic 02/20/19 22:00 02/21/19 22:14 Hibiclens For Decolonization - TP 1 applic HS [facility] Administration Diazepam 5 mg 02/20/19 16:25 Valium - PO Q8H PRN ANXIETY Docusate Sodium 100 mg 02/20/19 22:00 02/22/19 10:39 Colace - PO 100 mg BID [facility] Administration Enoxaparin Sodium 40 mg 02/21/19 10:00 02/22/19 10:37 Lovenox - SQ 40 mg DAILY [facility] Administration Fentanyl 50 mcg 02/20/19 16:16 02/20/19 16:25 Sublimaze Injection - IVPUSH 50 mcg [id number] PRN Administration PAIN-PACU ORDER X 4 DOSES ONLY Hydroxyzine HCl 25 mg 02/20/19 16:25 Vistaril Injection - IM Q6H PRN FOR ITCHING Mupirocin 1 applic 02/20/19 22:00 02/21/19 22:14 Bactroban Ointment (For Decolonization) - NS 02/25/19 21:59 1 applic BID [facility] Administration Ondansetron HCl 4 mg 02/20/19 16:16 Zofran Injection IVPUSH Q6H PRN NAUSEA AND/OR VOMITING Oxycodone HCl 5 mg 02/20/19 16:16 Roxicodone - PO Q3H PRN PAIN LEVEL 4 - 6 Oxycodone HCl 10 mg 02/20/19 16:16 02/22/19 06:05 Roxicodone - PO 10 mg Q3H PRN Administration PAIN LEVEL 7 - 10 Oxycodone HCl 10 mg 02/20/19 22:00 02/22/19 10:37 Oxycontin - PO 02/23/19 16:16 10 mg BID [facility] Administration Tramadol HCl 50 mg 01/14/20 16:16 Ultram - PO Q3H PRN PAIN LEVEL 1 - 3 ASSESSMENT/PLAN: 43F PMH left breast invasvise ductal carcinoma (ER positive, HER2 positive, NE negative) s/p chemotherapy and HTN, who presents on POD # 0 after mastectomy and reconstruction. Neuro/Psych -AAOx3 -Continue to monitor -Valium PRN -Oxycodone PRN -Tramadol PRN Cardiovascular -Hx of HTN -Continue Amlodipine Pulmonary -Patient was extubated after procedure -Satting 100% on RA -Maintain O2 saturation >92% GI -Regular diet -patient has normoactive bowel sounds. -Drains in place, will remove as per Surgery recommendations -Plastic Surgery consulted, appreciate recs Renal -Patient stable, continue to monitor ID -Patient remains afebrile -Given cefazolin Heme/Onc -Patient has strong family history of breast cancer -Invasive ductal carcinoma (ER and HER2 positive, NE negative) -S/P chemotherapy -F/U biopsy results from operation -plastic surgery following, appreciate recommendations. F: Oral hydration. E: Monitor CMP N: Regular diet Lines: patient has only peripheral IVs DVT: Lovenox 40 daily Dispo: ICU monitoring, discharge pending Surgical teams. Visit type - Emergency Visit Emergency Visit: No - New Patient This patient is new to me today: Yes Date on this admission: 02/22/19 - Critical Care Critical Care patient: Yes Total Critical Care Time (in minutes): 45 Critical Care Statement: The care of this patient involved high complexity decision making to prevent further life threatening deterioration of the patient 's condition and/or to evaluate & treat vital organ system(s) failure or risk of failure. ATTENDING PHYSICIAN STATEMENT I saw and evaluated the patient. I reviewed the resident's note and discussed the case with the resident. I agree with the resident's findings and plan as documented. SUBJECTIVE: OBJECTIVE: ASSESSMENT AND PLAN:
[2019-02-22 11:56] VITALS: BMI 31.8
[2019-02-22] MEDS ORDERED: PT OWN MED DRAWER 7, Y5N ONE (16:04)
[2019-02-22] MEDS: MUPIROCIN 2% TOPICAL OINTMENT FOR DECOLONIZATION NS SCH ×2 (17:17→21:47)
[2019-02-22] MEDS: amLODIPine BESYLATE 5 MG TABLET (FP) PO SCH (21:45)
[2019-02-22] MEDS: CHLORHEXIDINE GLUCONATE 4% CLEANSER FOR DECOLONIZATION TP SCH (21:47)
[2019-02-22] MEDS: CEFAZOLIN 1 GM/D5W 1 GM/50 ML BAG IVPB SCH (22:31)
[2019-02-23] MEDS: ACETAMINOPHEN 325 MG TABLET (FP) PO SCH (05:35)
[2019-02-23 07:06] LABS: BASO % 0.6 % (0-2.0); EOS % 2.9 % (0-4.5); HEMATOCRIT 30.7 % (32.4-45.2); HEMOGLOBIN 10.5 GM/dL (10.7-15.3); LYMPH % 25.9 % (8-40); MCH 28.9 pg (25.7-33.7); MCHC 34.3 g/dl (32.0-36.0); MEAN CELL VOLUME 84.3 fl (80-96); MEAN PLT VOLUME 7.5 fl (7.5-11.1); NEUT % 61.6 % (42.8-82.8); PLATELET COUNT 206 K/MM3 (134-434); RBC 3.64 M/mm3 (3.60-5.2); WHITE BLOOD COUNT 5.8 K/mm3 (4.0-10.0)
[2019-02-23 07:29] LABS: ALBUMIN 2.8 g/dl (3.4-5.0); BILIRUBIN,TOTAL 0.5 mg/dL (0.2-1); CALCIUM 8.8 mg/dL (8.5-10.1); CREATININE 0.7 mg/dL (0.55-1.3); MAGNESIUM 2.2 mg/dL (1.8-2.4); PHOSPHOROUS 3.6 mg/dL (2.5-4.9); POTASSIUM 3.8 mmol/L (3.5-5.1)
--- NOTE | 2019-02-23 08:53 | PATH ---
Surgical Pathology Report Patient Name: ANGELIA DEL RIO [facility]. Rec. #: [id number] /Age/Gender: 1975 (Age: 43) / F Account: [id number] [facility] Taken: 02/20/2019 Received: 02/20/2019 Reported: 02/23/2019 Physicians: Chandni Oswald M.D. Specimen(s) Received A: LEFT AXILLARY SENTINEL LN #1 B: LEFT AXILLARY SENTINEL LN #2 C: LEFT AXILLARY SENTINEL LN #3 D: EXTRA AXILLARY TISSUE LEFT E: ABDOMINAL FAT F: LEFT BREAST, LONG STITCH LATERAL, SHORT STITCH SUPERIOR G: EXTRA AXILLARY TISSUE CONTENTS LEFT H: LEFT BREAST ANTERIOR MARGIN, SUTURE PETERSEN BIOPSY CAVITY SITE I: LEFT INTERNAL MAMMARY LYMPH NODE Clinical History Left breast cancer status post neoadjuvant chemotherapy with complete radiologic response Intraoperative Consult Diagnosis A. Left axillary sentinel node #1, frozen section: Benign lymph node. B. Left axillary sentinel node #2, frozen section: Lymph node with changes consistent with prior biopsy site. No metastatic carcinoma identified. C. Left axillary sentinel node #3, frozen section: Benign lymph node. Mandie Hoffmann M.D., 02/20/2019 Final Diagnosis A. LYMPH NODE, LEFT AXILLARY SENTINEL NODE #1, EXCISION: ONE BENIGN LYMPH NODE (0/1) BY STANDARD HEMATOXYLIN AND EOSIN STAIN (MULTIPLE LEVELS EXAMINED) AND AE1/3 IMMUNOSTAIN. B. LYMPH NODE, LEFT AXILLARY SENTINEL NODE #2, EXCISION: ONE BENIGN LYMPH NODE (0/1) BY STANDARD HEMATOXYLIN AND EOSIN STAIN (MULTIPLE LEVELS EXAMINED) AND AE1/3 IMMUNOSTAIN. CHANGES CONSISTENT WITH PRIOR BIOPSY SITE PRESENT. C. LYMPH NODE, LEFT AXILLARY SENTINEL NODE #3, EXCISION: ONE BENIGN LYMPH NODE (0/1) BY STANDARD HEMATOXYLIN AND EOSIN STAIN (MULTIPLE LEVELS EXAMINED) AND AE1/3 IMMUNOSTAIN. D. LEFT AXILLARY TISSUE, EXCISION: ONE BENIGN LYMPH NODE (0/1) BY STANDARD HEMATOXYLIN AND EOSIN STAIN, AND BENIGN FIBROFATTY TISSUE. E. SKIN AND SOFT TISSUE, ABDOMEN, EXCISION: UNREMARKABLE SKIN AND SUBCUTANEOUS ADIPOSE TISSUE. F. LEFT BREAST, SKIN SPARING MASTECTOMY: BENIGN BREAST TISSUE WITH FOCAL ATYPICAL DUCTAL HYPERPLASIA ARISING IN A BACKGROUND OF FIBROCYSTIC CHANGES INCLUDING USUAL DUCTAL HYPERPLASIA, STROMAL FIBROSIS AND SCLEROSIS, DUCTAL DILATATION, AND CYSTIC APOCRINE METAPLASIA. BENIGN FIBROADENOMA IDENTIFIED. NO RESIDUAL INVASIVE DUCTAL CARCINOMA IDENTIFIED. G. LYMPH NODES, LEFT AXILLARY, LIMITED LOWER AXILLARY DISSECTION: TWO BENIGN LYMPH NODES (0/2) BY STANDARD HEMATOXYLIN AND EOSIN STAIN, AND BENIGN FIBROFATTY TISSUE WITH FOCAL FAT NECROSIS. H. LEFT BREAST, ANTERIOR MARGIN, EXCISION: BENIGN FATTY BREAST TISSUE. I. LYMPH NODE, LEFT INTERNAL MAMMARY, EXCISION: ONE BENIGN LYMPH NODE (0/1) BY STANDARD HEMATOXYLIN AND EOSIN STAIN. Comment: Also see prior specimens [id number] and [id number]. Comments Breast Invasive Carcinoma: Surgical Pathology Case Summary (Based on AJCC TNM 8 th edition) Procedure _X__ Total mastectomy (including nipple-sparing and skin-sparing mastectomy) Specimen Laterality _X__ Left Tumor Size _X__ No residual invasive carcinoma Histologic Type _X__ Invasive carcinoma of no special type (ductal, not otherwise specified) Histologic Grade ([place] Histologic Score) Glandular (Acinar)/Tubular Differentiation _X__ No residual invasive carcinoma Nuclear Pleomorphism _X__ No residual invasive carcinoma Mitotic Rate _X__ No residual invasive carcinoma Overall Grade _X__ No residual invasive carcinoma Tumor Focality _X__ Single focus of invasive carcinoma Ductal Carcinoma In Situ (DCIS) _X__ No DCIS in specimen Margins Invasive Carcinoma Margins _X__ Uninvolved by invasive carcinoma Closest margin: _X__ Cannot be determined: No residual invasive carcinoma DCIS Margins _X__ No DCIS in specimen Regional Lymph Nodes _X__ Uninvolved by tumor cells Number of Lymph Nodes Examined: 7 Number of [place] Nodes Examined:3 Extranodal Extension: _X__ Not identified Treatment Effect Treatment Effect in the Breast _X__ No residual invasive carcinoma is present in the breast after presurgical therapy Treatment Effect in the Lymph Nodes _X__ No lymph node metastases and no prominent fibrous scarring in the nodes Lymphovascular Invasion _X__ Not identified Pathologic Stage Classification (pTNM, AJCC 8th Edition) Primary Tumor (Invasive Carcinoma) (pT) _X__ ypT0: No evidence of primary tumor Regional Lymph Nodes (pN) Category (pN) _X__ ypN0: No regional lymph node metastasis identified or ITCs only Biomarker Studies Results of ER and FL studies performed on a prior biopsy ([id number]) at [facility] are as follows: ER (clone [id number] mouse monoclonal antibody by [employer]): ~30% nuclear staining with weak to moderate intensity (Positive). FL (clone16 mouse monoclonal antibody by [employer]) : 0% nuclear staining (Negative). Results of Her2 (IHC) & Ki-67 studies performed on a prior biopsy () at [place], [place] ([id number]) are as follows: Her2 IHC (EP3 from [employer], formerly known as [id number], using [employer] Polymer Refine detection kit): 3+ (Positive) Ki67: ~45% (High proliferative index) Positive and negative controls (internal if applicable) show appropriate results. Formalin fixation and cold ischemic times are within current ASCO/CAP recommendations for ER, FL and Her2 testing. Electronically Signed Wilfrid Hoffmann M.D. Addendum Reported: 03/05/2019 Addendum Diagnosis No residual invasive carcinoma is identified in this material. Case Summary incorporates findings from prior biopsy (). Case discussed by Dr. Hoffmann with Dr. Carpenter, 03/05/19. Opal Alvarado M.D. Gross Description A. Received fresh labeled "left axillary sentinel lymph node #1," is a 2.3 x 1.0 x 0.6 cm lymph node with attached fat. The specimen is bisected and entirely submitted for frozen section. The frozen section residue is entirely submitted in one cassette. B. Received fresh labeled "left axillary sentinel lymph node #2," is a 2.3 x 1.3 x 0.5 cm lymph node with attached fat. The specimen is bisected and entirely submitted for frozen section. The frozen section residue is entirely submitted in one cassette. C. Received fresh labeled "left axillary sentinel lymph node #3," is a 0.7 x 0.6 x 0.3 cm lymph node with attached fat. The specimen is submitted in toto for frozen section. The frozen section residue is entirely submitted in one cassette. D. Received in formalin labeled "extra axillary tissue left," is a 5.0 x 4.0 x 0.8 cm aggregate of yellow, lobulated adipose tissue. No definitive lymph nodes are identified. The specimen is entirely submitted in 5 cassettes. E. Received in formalin labeled "abdominal fat," is a 779 g aggregate of 2 unoriented portions of yellow, lobulated adipose tissue which are surface by rivers, unremarkable skin. The specimens measure 20.0 x 15.5 x 6.0 cm and 9.5 x 3.8 x 2.3 cm. Sectioning reveals unremarkable yellow, lobulated adipose tissue. No lesions are identified. Outer Diameter Grinder Tool sections are submitted in one cassette. F. Received in formalin, labeled "left breast," is a 620 gram, 21.0 x 20.5 x 5.0 cm. left mastectomy specimen with a short suture marking the superior aspect and a long suture marking the lateral aspect of the specimen, per the surgeon. The anterior surface displays a 4.2 x 3.7 cm rivers, ovoid portion of skin with a 1.2 cm in diameter nipple. The deep margin is inked black and the anterior soft tissue margin is inked blue. The specimen is serially sectioned from medial to lateral. Sectioning reveals a 1.0 x 1.0 x 0.8 cm firm focus of fibrous tissue in the upper outer quadrant (UOQ). The focus is 0.8 cm from the anterior soft tissue margin and is surrounded by a 7.0 x 5.5 x 4.0 cm ill-defined area of dense white fibrous tissue. There is a [place] metallic biopsy clip identified within the dense white fibrous tissue, 1.5 cm lateral to the firm focus. The remaining breast parenchyma displays multifocal white fibrous tissue. Outer Diameter Grinder Tool sections are submitted in 19 cassettes as follows: 1-serially sectioned nipple; 2-subareolar shave; 3-4-UOQ firm focus of fibrous tissue, each with anterior soft tissue margin; 5-7-UOQ area of murri[place] metallic biopsy clip; 8-08-duvxrgcuzf UOQ dense white fibrous tissue; 11-13-lower outer quadrant; 14-15-upper inner quadrant; 16-17-lower inner quadrant; 18-skin and anterior soft tissue margin; 19-deep margin. Total formalin fixation time: Approximately 26 hours G. Received in formalin labeled "axillary contents" is a 6.0 x 4.5 x 0.8 cm aggregate of yellow, lobulated adipose tissue. There is a 0.7 x 0.6 x 0.3 cm rivers lymph node identified within the fat. The specimen is entirely submitted in 6 cassettes as follows: 1-lymph node; 7-6-quevklphq fat. H. Received in formalin labeled "left breast anterior margin," is a 6.2 x 4.0 x 1.4 cm portion of fibroadipose tissue with a suture marking the biopsy cavity side, per the surgeon. The new margin is inked black and the specimen is serially sectioned. The specimen is entirely and sequentially submitted in 11 cassettes. I. Received in formalin labeled "left internal mammary lymph node," is a 0.2 cm in greatest dimension possible lymph node. The specimen is submitted in toto in one cassette. 02/20/2019 analy02/20/2019
[2019-02-23] MEDS: DOCUSATE SODIUM 100 MG CAPSULE (FP) PO SCH (09:45)
[2019-02-23] MEDS: MUPIROCIN 2% TOPICAL OINTMENT FOR DECOLONIZATION NS SCH (09:45)
[2019-02-23] MEDS: ENOXAPARIN NA (PORCINE) 40 MG/0.4 ML DISP.SYRIN SQ SCH (09:45)
[2019-02-23] MEDS: ASPIRIN 325 MG TABLET PO SCH (09:45)
[2019-02-23] MEDS: oxyCODONE HCL 10 MG SUSTAINED ACTING TABLET PO SCH (09:46)
[2019-02-23 10:21] VITALS: BP 123/87; PULSE 95; TEMP 98.4
--- NOTE | 2019-02-23 10:44 | PN ---
Progress Note (short form) - Note Progress Note: POD#3 Pt without complaints this am of pain. No SOB, CP. Tolerating a diet. Vital Signs Period Temp Pulse Resp BP Sys/Zavala Pulse Ox Last 24 Hr 97.8 F-98.9 F 84-100 17- 108-134/55-95 92-98 COMFORT: left breast: 90 ml serosangrenous/ left abd: 150ml serosangrenous right abd : 50ml serosangrenous GEN: A&0x3, NAD Left breast: with good signal, good cap refill. Inc c/d/i, minimal ecchymosis. No ischemic changes. ABD: inc c/d/i with dermabond, No ecchymosis or drainage noted. Umbilical inc c/ d/i, no ischemic changes. LE: no calf tenderness or swelling noted b/l. CBC, BMP 02/23/ 05:37 02/23/ 06:00 A/P: 89 yo female s/p Left mastectomy wtih SUE, POD#3 Pt stable for discharge Perscriptions completed and follow up care d/w the patient. Spoke with Dr. Smith and the breast surgery team. Pt for discharge today and will follow up with Dr. Rubio next tuesday
--- NOTE | 2019-02-23 11:31 | PN ---
Physical Exam: SUBJECTIVE: Patient seen and examined. In no acute distress. Ambulated w/ PT yesterday and walking on her own today. Toelrating PO diet. OBJECTIVE: Vital Signs Period Temp Pulse Resp BP Sys/Zavala Pulse Ox Last 24 Hr 97.8 F-98.9 F 84-100 17-23 108-134/55-95 92-98 GENERAL: The patient is awake, alert, and fully oriented, in no acute distress. HEENT: NCAT CHEST: CTABL. L breast SUE flap c/d/i no signs of infection, no tenderness to palpation HEART: Regular rate and rhythm, S1, S2 without murmur, rub or gallop. ABDOMEN: Soft NTND. Suprapubic scar from graft c/d/i, drain x2 in place draining blood EXTREMITIES: 2+ pulses, warm, well-perfused, no edema. NEUROLOGICAL:nonfocal exam PSYCH: Normal mood, normal affect. SKIN: Warm, dry, normal turgor, no rashes or lesions noted Laboratory Results - last 24 hr 02/23/19 02/23/19 05:37 06:00 WBC 5.8 RBC 3.64 Hgb 10.5 L Hct 30.7 L MCV 84.3 MCH 28.9 MCHC 34.3 RDW 14.0 Plt Count 206 MPV 7.5 Absolute Neuts (auto) 3.6 Neutrophils % 61.6 D Lymphocytes % 25.9 D Monocytes % 9.0 Eosinophils % 2.9 D Basophils % 0.6 D Nucleated RBC % 0 Sodium 141 Potassium 3.8 Chloride 105 Carbon Dioxide 30 Anion Gap 6 L BUN 15.0 Creatinine 0.7 Est GFR (CKD-EPI)AfAm 122.13 Est GFR (CKD-EPI)NonAf 105.37 Random Glucose 88 Calcium 8.8 Phosphorus 3.6 Magnesium 2.2 Total Bilirubin 0.5 AST 21 ALT 29 Alkaline Phosphatase 81 Total Protein 6.0 L Albumin 2.8 L ASSESSMENT/PLAN: 43 y.o. F no significant personal past medical history but significant family hx of breast & ovarian CA. 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 -no acute issues #CV -EKG 02/16: NSR qtc 418 -continue asa, norvasc 5mg daily #Pulm -continue using incentive spirometer -satting well on RA, maintain >90% #Heme/Onc -L breast invasive ductal CA -s/p adjuvant chemotherapy (herceptin, perjeta) via L chemoport -f/u L breast surgical biopsy #GI -lower abdominal incision c/d/i -passing flatus #ID -s/p ancef post op -afebrile; wbc 5.8, f/u AM cbc #FENLTD -no standing fluids -monitor bmp replete lytes as needed -tolerating diet -peripheral line in place -2x surgical drains in place LLQ monitor outputs #PPX -LVX 40 sq daily #Pain control -tramadol 50 q3 prn -oxycodone 10mg po q3h prn -tylenol 650mg po q6h prn #Dispo -continue to monitor in icu Visit type - Emergency Visit Emergency Visit: No - New Patient This patient is new to me today: No - Critical Care Critical Care patient: Yes Total Critical Care Time (in minutes): 45 Critical Care Statement: The care of this patient involved high complexity decision making to prevent further life threatening deterioration of the patient 's condition and/or to evaluate & treat vital organ system(s) failure or risk of failure. ATTENDING PHYSICIAN STATEMENT I saw and evaluated the patient. I reviewed the resident's note and discussed the case with the resident. I agree with the resident's findings and plan as documented. SUBJECTIVE: OBJECTIVE: ASSESSMENT AND PLAN:
--- NOTE | 2019-02-26 17:25 | OP ---
DATE OF OPERATION: 02/20/2019 PREOPERATIVE DIAGNOSES: 1. Left breast cancer. 2. Acquired absence of left breast and nipple. POSTOPERATIVE DIAGNOSES: 1. Left breast cancer. 2. Acquired absence of left breast and nipple. PROCEDURE: 1. Immediate left breast reconstruction with deep inferior epigastric recovery agent microvascular free flap. 2. Left 3rd rib partial resection. 3. Exploration of left internal mammary vessels with extensive adventitiectomies. 4. Excision of left internal mammary lymph node. 5. Intraoperative angiography of left mastectomy skin flap and lower abdominal flap using indocyanine green. 6. Processing and interpretation of intraoperative angiography images. 7. Bilateral ultrasound-guided transversus abdominis plane regional nerve blocks. ATTENDING SURGERY: Jeancarlos Smith MD CO-SURGEON: Christian Bella MD BREAST SURGEON: Allen Rubio MD ANESTHESIA: General endotracheal. ESTIMATED BLOOD LOSS: 150 mL. SPECIMENS: 1. Left total mastectomy to Pathology (596 g). 2. Left axillary sentinel lymph node biopsy to Pathology per breast surgical oncology. 3. Left internal mammary lymph node to Pathology. DRAINS: 1. No. 15 round Fred drain x1 to left breast. 2. No. 15 round Fred drain x2 to abdomen. COMPLICATIONS: None. DISPOSITION: Stable to recovery room, extubated. INDICATIONS: The patient is a 43-year-old female with a recent diagnosis of left breast cancer. She underwent neoadjuvant chemotherapy due to the extent of her disease and now presents for definitive surgical management. She has been recommended for a left skin-sparing mastectomy with axillary sentinel lymph node biopsy. The patient was evaluated preoperatively for immediate left breast reconstruction, and she is most appropriately a candidate for autologous reconstruction using her lower abdominal tissue. The risks, benefits, and alternatives of the reconstructive procedures were discussed with the patient preoperatively, and all questions were answered. The risks include, but are not limited to, bleeding, infection, pain, need for revision or further surgery, partial or complete flap loss, partial or complete skin loss, damage to neighboring structures including nerves, arteries, veins, and tendons. The patient understands these risks and has elected to proceed with surgery. DESCRIPTION OF PROCEDURE: After proper identification and marking the patient in the preoperative holding area, the patient was transported to the operating room, placed supine on the table while noninvasive anesthesia monitors were applied. Intravenous access was established. General anesthesia was administered, and the patient was intubated without difficulty. SCD boots were applied to bilateral extremities. Intravenous antibiotics were then given. A Burnett catheter was then placed; 5000 units of subcutaneous heparin were then given. At this point, the patient's bilateral breasts as well as the abdomen and flanks were prepped and draped in the usual sterile fashion. After a time-out was performed, Dr. Rubio from breast surgical oncology proceeded to perform a left skin-sparing mastectomy with a left axillary sentinel lymph node biopsy. These procedures will be dictated separately. Concurrently, Dr. Bella and I began the reconstruction working independently as co-surgeons with separate instrument set ups. Attention was first turned towards the umbilicus where skin hooks were placed at the 12 and 6 o'clock position. The umbilicus was circumferentially incised with a No. 15 blade. At this point, a periumbilical dissection was performed with a Metzenbaum scissor with care taken to leave adequate periumbilical fat. At this point, the superior and inferior limbs of the lower abdominal flap were incised with a No. 10 blade. The superior limb was carried down through the full thickness of the subcutaneous tissue with electrocautery with care taken to bevel slightly outwards. Once the anterior abdominal wall was reached, the superior abdominal skin flap was raised up to the xiphoid process in the midline and the costal margin bilaterally. At this point, the inferior incision was carried down through the subcutaneous tissue with electrocautery in a layer by layer fashion. Bilateral superficial inferior epigastric veins were identified. They were noted to be quite small; and therefore, they were ligated and divided and remainder of the subcutaneous tissue dissected down to the anterior abdominal wall. Next, attention was turned towards the right side of the lower abdominal flap. This was raised from a lateral to medial direction just above the level of the anterior abdominal wall fascia. Once the lateral border of the rectus abdominis was reached, bipolar electrocautery was used to perform a layer by layer fashion. The dissection then proceeded until the inferior epigastric perforators were identified. There were noted to be 3 large, lateral row perforators, and the decision was made to base the lower abdominal flap off of these. Therefore, the perforators were circumferentially dissected as they exited through the fascia. The fascia was then opened superiorly and inferiorly as well as the intervening fascia between the perforators. At this point, individual, retrograde recovery agent dissections were performed through the full thickness of the rectus abdominis muscle fibers. The muscle fibers were divided longitudinally as much as possible. Care was taken to identify muscular side branches, and these were individually isolated, circumferentially dissected, ligated, and divided. The perforators were dissected down to their takeoffs from the inferior epigastric pedicle. The superior continuation of the pedicle was circumferentially dissected, ligated, and divided. At this point, a more proximal pedicle dissection was performed until adequate length and caliber had been achieved. The remainder of the lower abdominal flap was then raised off of the anterior abdominal wall. Zones 3 and 4 were excised and discarded. The flap was then stapled in place. Doppler signal was achieved on the skin paddle. A circular skin paddle was then designed around this, and the remainder of the flap was deepithelialized. At this point, Dr. Rubio had finished the breast surgical oncology portion of the operation; and therefore, attention was turned towards the intraoperative angiography. The SPY angiography system was sterilely draped and was brought onto the field. A 5-mL intravenous injection of indocyanine green was given. An angiography of the mastectomy skin flap as well as the lower abdominal flap was performed. Relative perfusion data was then used to process the angiography images, and this data showed good perfusion to the mastectomy skin flaps as well as to zones 1 and 2 of the lower abdominal flap. Once the intraoperative angiography was completed, attention was turned towards harvesting of recipient vessels in the left chest. The left breast pocket was copiously irrigated with warm saline solution, and all loose fat debris was removed. At this point, hemostasis was ensured with electrocautery. Self-retaining retractors were placed. The interspace between the 2nd and 3rd ribs was then identified. The pectoralis major muscle fibers were then divided along their course overlying this interspace. The muscle fibers were then retracted, and the periosteum and perichondrium on the superficial surface of the 3rd rib was incised. At this point, a circumferential subperiosteal and subperichondrial dissection was performed around the left 3rd rib. Once the rib was completely isolated, a large rongeur was used to perform a resection of the left 3rd rib at the costochondral junction. Once an adequate postage stamp-sized piece of rib had been removed, the periosteum and perichondrium on the deep surface was carefully incised. The underlying internal mammary vessels were then identified. At this point, a formal exploration of the internal mammary vessels was performed using microvascular instruments and techniques. Extensive adventitiectomies were performed on the artery as well as the accompanying vein. Once the vessels were adequately prepared, our attention was turned towards the microvascular transfer. The right-sided lower abdominal microvascular free flap was ligated and divided at the most proximal extent of the pedicle dissection. It was placed on a sterile scale and noted to weigh 747 g. It was then brought up to the left breast pocket where it was temporarily stapled in place. The microvascular anastomoses were then performed. The 1st venous anastomosis between the antegrade stump of the internal mammary vein and the larger of the 2 veins from the inferior epigastric system was performed using a 3.0-mm Syn[employer] clearing distribution clerk. Release of all clamps revealed good backflow across this anastomosis. Next, a 2nd venous anastomosis between the retrograde stump of the internal mammary vein and the remaining vein of the inferior epigastric system was performed using a 2.5-mm [employer] clearing distribution clerk. Release of all clamps revealed good flow across this anastomosis as well. Next, attention was turned towards the arterial anastomosis. A primary handsewn anastomosis between the internal mammary artery and the inferior epigastric artery was performed using an 8-0 nylon suture in a simple running fashion. Release of all clamps revealed good flow across this anastomosis and good perfusion to the microvascular free flap. There was also noted to be a strong biphasic Doppler signal on the microvascular free flap skin paddle. At this point, attention was turned towards insetting of the flap. The flap was carefully positioned into the left breast pocket. Care was taken to ensure a good lie of pedicle without twisting or kinking. Once this was confirmed, the flap was inset to the chest wall in multiple locations using a 2-0 Vicryl suture in simple, interrupted fashion. Once the flap insetting was completed, the mastectomy skin flap was re-draped over the microvascular free flap. The amount of skin paddle to be externalized was marked, and redundant skin paddle was deepithelialized. The dermis was then circumferentially scored around the skin paddle. A No. 15 round Fred drain was placed into the left breast pocket and brought out through a separate stab incision laterally and secured to the skin with 3-0 nylon suture. The left breast closure was then performed in layers with a 3-0 Monocryl in a buried deep dermal fashion followed by a 3-0 Monocryl Stratafix in a running, subcuticular fashion. Concurrently, closure of the abdomen was performed. The fascial incision on the right side was reapproximated in a primary fashion using a No. 0 PDS barbed suture in a simple running fashion. Once this was completed, the ultrasound system was brought into the field and was sterilely draped. A local anesthetic mixture consisting of 20 mL of Exparel, 30 mL of 0.25% Marcaine, and 80 mL of normal saline was used to perform the regional nerve blocks. A total of 30 mL were injected into each transverse abdominis plane again under ultrasound guidance. Once the regional nerve blocks were completed, attention was turned towards the abdominal closure. The patient was placed into a flexed and extended position. Two No. 15 round Fred drains were then placed into the abdominal pocket and brought out through the most lateral extent of the lower abdominal incision. The superior abdominal skin flap was then advanced and was closed in layers using a 2-0 PDS in an interrupted, buried fashion to reapproximate Linda fascia. This was followed by a 3-0 Monocryl in a buried, deep dermal fashion and finally a 3-0 Monocryl Stratafix in a running, subcuticular fashion. The site of the umbilicus transposition had been marked, and a vertically oriented ellipse with a core of fat was excised and discarded. The umbilicus was transposed and inset with a 3-0 PDS in a buried, deep dermal fashion followed by skin glue for the final closure. Once all incisions were closed, sterile dressings were placed, and this was followed by a soft surgical bra for inferior and lateral pole support. There was noted to be a strong biphasic Doppler signal at the conclusion of the case with normal capillary refill. It should be noted that during the exploration of the left internal mammary vessels, an internal mammary lymph node was encountered around the internal mammary vein. This internal mammary lymph node was circumferentially dissected and excised using bipolar electrocautery and was passed off the field as specimen. The patient at this point was slowly awakened and extubated without incident and transported to recovery room in stable condition. Chandni [id number]
== END 2019-02-23 10:05 | disposition home health service (06) | DRG 581 ==
LOC: JSAMEDAYSX 05:12 → JICU 18:16
PROVIDERS: ADMIT Surgery Surgical Oncology; ATTEND Surgery Surgical Oncology
PROC: 4A1GXSH Monitoring of Skin and Breast Vascular Perfusion using Indocyanine Green Dye, External Approach (ICD-10-PCS; 2019-02-20)
PROC: 0HTU0ZZ Resection of Left Breast, Open Approach (ICD-10-PCS; principal; 2019-02-20 09:30)
PROC: 07B60ZX Excision of Left Axillary Lymphatic, Open Approach, Diagnostic (ICD-10-PCS; 2019-02-20 09:30)
PROC: 0HRU077 Replacement of Left Breast using Deep Inferior Epigastric Artery Perforator Flap, Open Approach (ICD-10-PCS; 2019-02-20 09:30)
PROC: 07T Lymphatic and Hemic Systems, Resection (ICD-10-PCS; 2019-02-20 09:30)
DX: C50.012 Malignant neoplasm of nipple and areola, left female breast (principal); Z17.0 Estrogen receptor positive status [ER+]; I10 Essential (primary) hypertension
CPT/HCPCS: 19281; 36415; 76098-TC-FY; 78195-TC; 80053; 83735; 84100; 84703; 85025; 85027; 86850; 86900; 86901; 88302-TC; 88305-TC; 88307-TC; 88331-TC; 94760; 97116-GP; 97162-GP; A9541; J1644

== ENCOUNTER 2019-03-06 07:10 | Day surgery (SDC) | payer OTHER ==
[2019-03-06] MEDS ORDERED: ACETAMINOPHEN 325 MG TABLET (FP) PO ONE (09:30)
[2019-03-06] MEDS ORDERED: DIPHENHYDRAMINE 25 MG in SODIUM CHLORIDE 50 ML IVPB ONE (09:30)
[2019-03-06 09:38] LABS: EOS % 3.6 % (0-4.5); HEMATOCRIT 33.2 % (32.4-45.2); HEMOGLOBIN 10.8 GM/dL (10.7-15.3); MCH 27.5 pg (25.7-33.7); MCHC 32.6 g/dl (32.0-36.0); MEAN CELL VOLUME 84.3 fl (80-96); MEAN PLT VOLUME 6.9 fl (7.5-11.1); MONO % 6.5 % (3.8-10.2); NEUT % 66.9 % (42.8-82.8); PLATELET COUNT 232 K/MM3 (134-434); RBC 3.94 M/mm3 (3.60-5.2); RDW 14.4 % (11.6-15.6); WHITE BLOOD COUNT 5.2 K/mm3 (4.0-10.0)
[2019-03-06] MEDS ORDERED: PERTUZUMAB 420 MG in SODIUM CHLORIDE 250 ML IVPB ONE (10:00)
[2019-03-06 10:19] LABS: ALBUMIN 3.5 g/dl (3.4-5.0); BILIRUBIN,TOTAL 0.3 mg/dL (0.2-1); BLOOD UREA NITROGEN 13.4 mg/dL (7-18); CALCIUM 9.5 mg/dL (8.5-10.1); CREATININE 0.7 mg/dL (0.55-1.3); MAGNESIUM 2.3 mg/dL (1.8-2.4); POTASSIUM 3.4 mmol/L (3.5-5.1); TOT PROT 7.2 g/dl (6.4-8.2)
[2019-03-06] MEDS ORDERED: TRASTUZUMAB ANNS IVPB ONE (10:30)
[2019-03-06] MEDS ORDERED: SODIUM CHLORIDE IVPB ONE (10:30)
[2019-03-06] MEDS ORDERED: POTASSIUM CHLORIDE TABS 20 MEQ TABLET.ER (FP) PO ONE (13:15)
[2019-03-06 17:18] VITALS: TEMP 97.9
[2019-03-06 17:19] VITALS: BP 125/81; PULSE 91
== END 2019-03-06 16:15 | disposition home or self-care (01) ==
LOC: JONCCHEMO 07:10 → J7W 13:08 → JONCCHEMO 16:15
PROVIDERS: ATTEND Internal Medicine Hematology & Oncology
DX: Z51.11 Encounter for antineoplastic chemotherapy (principal); C50.112 Malignant neoplasm of central portion of left female breast
CPT/HCPCS: 36415; 80053; 83735; 85025; 96375; 96413; 96417; J9306; Q5117

== ENCOUNTER 2019-03-27 05:42 | Day surgery (SDC) | payer OTHER ==
[2019-03-27] MEDS ORDERED: DIPHENHYDRAMINE 25 MG in SODIUM CHLORIDE 50 ML IVPB ONE (10:00)
[2019-03-27] MEDS ORDERED: ACETAMINOPHEN 325 MG TABLET (FP) PO ONE (10:00)
[2019-03-27 10:02] LABS: BASO % 0.9 % (0-2.0); EOS % 5.4 % (0-4.5); HEMATOCRIT 38.7 % (32.4-45.2); HEMOGLOBIN 12.8 GM/dL (10.7-15.3); LYMPH % 32.6 % (8-40); MCH 26.9 pg (25.7-33.7); MCHC 33.1 g/dl (32.0-36.0); MEAN CELL VOLUME 81.1 fl (80-96); MONO % 7.5 % (3.8-10.2); NEUT % 53.6 % (42.8-82.8); PLATELET COUNT 252 K/MM3 (134-434); RBC 4.77 M/mm3 (3.60-5.2); RDW 15.4 % (11.6-15.6); WHITE BLOOD COUNT 4.6 K/mm3 (4.0-10.0)
[2019-03-27] MEDS ORDERED: SODIUM CHLORIDE IVPB ONE (10:30)
[2019-03-27] MEDS ORDERED: TRASTUZUMAB ANNS IVPB ONE (10:30)
[2019-03-27 10:32] LABS: BILIRUBIN,TOTAL 0.4 mg/dL (0.2-1); BLOOD UREA NITROGEN 13.4 mg/dL (7-18); CALCIUM 9.6 mg/dL (8.5-10.1); CREATININE 0.8 mg/dL (0.55-1.3); MAGNESIUM 2.3 mg/dL (1.8-2.4); POTASSIUM 3.6 mmol/L (3.5-5.1); TOT PROT 7.7 g/dl (6.4-8.2)
[2019-03-27] MEDS ORDERED: PERTUZUMAB 420 MG in SODIUM CHLORIDE 250 ML IVPB ONE (11:00)
[2019-03-27 16:27] VITALS: TEMP 98.1
[2019-03-27 16:28] VITALS: BP 136/77; PULSE 80
== END 2019-03-27 15:00 | disposition home or self-care (01) ==
LOC: JONCCHEMO 05:42 → J7W 12:04 → JONCCHEMO 15:00
PROVIDERS: ATTEND Internal Medicine Hematology & Oncology
DX: Z51.11 Encounter for antineoplastic chemotherapy (principal); C50.112 Malignant neoplasm of central portion of left female breast
CPT/HCPCS: 36415; 80053; 83735; 85025; 96375; 96413; 96417; J9306; Q5117

== ENCOUNTER 2019-04-17 07:18 | Day surgery (SDC) | payer OTHER ==
[2019-04-17] MEDS ORDERED: ACETAMINOPHEN 325 MG TABLET (FP) PO ONE (10:00)
[2019-04-17] MEDS ORDERED: DIPHENHYDRAMINE 25 MG in SODIUM CHLORIDE 50 ML IVPB ONE (10:00)
[2019-04-17 10:24] LABS: BASO % 0.5 % (0-2.0); EOS % 7.5 % (0-4.5); HEMOGLOBIN 12.7 GM/dL (10.7-15.3); LYMPH % 31.5 % (8-40); MCH 26.6 pg (25.7-33.7); MCHC 33.4 g/dl (32.0-36.0); MEAN CELL VOLUME 79.7 fl (80-96); MEAN PLT VOLUME 7.7 fl (7.5-11.1); MONO % 8.7 % (3.8-10.2); NEUT % 51.8 % (42.8-82.8); PLATELET COUNT 240 K/MM3 (134-434); RBC 4.77 M/mm3 (3.60-5.2); RDW 15.1 % (11.6-15.6); WHITE BLOOD COUNT 4.8 K/mm3 (4.0-10.0)
[2019-04-17] MEDS ORDERED: PERTUZUMAB 420 MG in SODIUM CHLORIDE 250 ML IVPB ONE (10:30)
[2019-04-17 10:46] LABS: ALBUMIN 3.7 g/dl (3.4-5.0); BILIRUBIN,TOTAL 0.5 mg/dL (0.2-1); BLOOD UREA NITROGEN 11.1 mg/dL (7-18); CALCIUM 9.1 mg/dL (8.5-10.1); CREATININE 0.8 mg/dL (0.55-1.3); MAGNESIUM 2.2 mg/dL (1.8-2.4); POTASSIUM 4.1 mmol/L (3.5-5.1); TOT PROT 7.7 g/dl (6.4-8.2)
[2019-04-17] MEDS ORDERED: SODIUM CHLORIDE IVPB ONE (11:00)
[2019-04-17] MEDS ORDERED: TRASTUZUMAB ANNS IVPB ONE (11:00)
[2019-04-17 15:13] VITALS: TEMP 97.8
[2019-04-17] MEDS ORDERED: PORTA CATH FLUSH 10 ML IVPUSH ONE (15:16)
[2019-04-17 15:17] VITALS: BP 137/89; PULSE 72
== END 2019-04-17 13:40 | disposition home or self-care (01) ==
LOC: JONCCHEMO 07:18 → J7W 10:57 → JONCCHEMO 13:40
PROVIDERS: ATTEND Nurse Practitioner Family
DX: Z51.11 Encounter for antineoplastic chemotherapy (principal); C50.112 Malignant neoplasm of central portion of left female breast
CPT/HCPCS: 36415; 80053; 83735; 85025; 96375; 96413; 96417; J9306; Q5117

== ENCOUNTER 2020-11-26 08:08 | Day surgery (SDC) | payer OTHER ==
[2020-11-26] MEDS ORDERED: GOSERELIN ACETATE 3.6 MG IMPLANT SYRINGE SQ ONE (10:00)
[2020-11-26] MEDS ORDERED: LIDOCAINE HCL 1%, 10 MG/ML (20ML VIAL) ID ONE (10:00)
[2020-11-26 18:24] VITALS: TEMP 98.8
[2020-11-26 19:09] VITALS: BP 115/75; PULSE 62
== END 2020-11-26 10:40 | disposition home or self-care (01) ==
LOC: JONCCHEMO 08:08
PROVIDERS: ATTEND Internal Medicine Hematology & Oncology
DX: Z51.11 Encounter for antineoplastic chemotherapy (principal); C50.812 Malignant neoplasm of overlapping sites of left female breast
CPT/HCPCS: 36415; 84703; 96401; J9202

== ENCOUNTER 2020-12-23 07:47 | Day surgery (SDC) | payer OTHER ==
[2020-12-23] MEDS ORDERED: LIDOCAINE HCL 1%, 10 MG/ML (20ML VIAL) ID ONE (10:00)
[2020-12-23] MEDS ORDERED: GOSERELIN ACETATE 3.6 MG IMPLANT SYRINGE SQ ONE (10:00)
[2020-12-23 14:29] LABS: BASO % 0.7 % (0-2.0); EOS % 3.5 % (0-4.5); HEMATOCRIT 43.4 % (32.4-45.2); LYMPH % 25.4 % (8-40); MCH 28.2 pg (25.7-33.7); MCHC 34.5 g/dl (32.0-36.0); MEAN CELL VOLUME 81.7 fl (80-96); MEAN PLT VOLUME 7.6 fl (7.5-11.1); MONO % 7.9 % (3.8-10.2); NEUT % 62.5 % (42.8-82.8); PLATELET COUNT 224 10^3/uL (134-434); RBC 5.32 M/mm3 (3.60-5.2); RDW 14.1 % (11.6-15.6); WHITE BLOOD COUNT 6.5 K/mm3 (4.0-10.0)
[2020-12-23 14:53] LABS: ALBUMIN 3.8 g/dl (3.4-5.0); CALCIUM 9.3 mg/dL (8.5-10.1)
[2020-12-23 14:54] LABS: MAGNESIUM 2.5 mg/dL (1.8-2.4)
[2020-12-23 14:56] LABS: BILIRUBIN,DIRECT 0.1 mg/dL (0.0-0.2)
[2020-12-23 14:57] LABS: CREATININE 0.8 mg/dL (0.55-1.3)
[2020-12-23 14:58] LABS: BILIRUBIN,TOTAL 0.4 mg/dL (0.2-1); TOT PROT 7.6 g/dl (6.4-8.2)
[2020-12-23 17:15] VITALS: BP 117/79; PULSE 87; TEMP 98.4
[2020-12-25 08:09] LABS: FOLLICLE STIMULATING HORMONE 2.1 mIU/mL (.)
== END 2020-12-23 15:30 | disposition home or self-care (01) ==
LOC: JONCCHEMO 07:47
PROVIDERS: ATTEND Internal Medicine Hematology & Oncology
DX: Z51.11 Encounter for antineoplastic chemotherapy (principal); C50.812 Malignant neoplasm of overlapping sites of left female breast
CPT/HCPCS: 36415; 80048; 80076; 83001; 83002; 83735; 84703; 85025; 96402; J9202

== ENCOUNTER 2021-01-20 07:19 | Day surgery (SDC) | payer OTHER ==
[2021-01-20] MEDS ORDERED: LIDOCAINE HCL 1%, 10 MG/ML (20ML VIAL) ID ONE (10:00)
[2021-01-20] MEDS ORDERED: GOSERELIN ACETATE 3.6 MG IMPLANT SYRINGE SQ ONE (10:00)
[2021-01-20 13:04] LABS: BASO % 0.7 % (0-2.0); EOS % 4.6 % (0-4.5); HEMATOCRIT 42.9 % (32.4-45.2); HEMOGLOBIN 14.7 GM/dL (10.7-15.3); LYMPH % 28.4 % (8-40); MCHC 34.3 g/dl (32.0-36.0); MEAN CELL VOLUME 81.7 fl (80-96); MEAN PLT VOLUME 7.6 fl (7.5-11.1); MONO % 6.8 % (3.8-10.2); NEUT % 59.5 % (42.8-82.8); PLATELET COUNT 267 10^3/uL (134-434); RBC 5.25 M/mm3 (3.60-5.2); RDW 13.7 % (11.6-15.6); WHITE BLOOD COUNT 6.4 K/mm3 (4.0-10.0)
[2021-01-20 13:24] LABS: ALBUMIN 3.7 g/dl (3.4-5.0); BLOOD UREA NITROGEN 15.4 mg/dL (7-18); CALCIUM 9.3 mg/dL (8.5-10.1); MAGNESIUM 2.6 mg/dL (1.8-2.4)
[2021-01-20 13:26] LABS: BILIRUBIN,DIRECT 0.2 mg/dL (0.0-0.2)
[2021-01-20 13:27] LABS: CREATININE 0.8 mg/dL (0.55-1.3)
[2021-01-20 13:28] LABS: BILIRUBIN,TOTAL 0.4 mg/dL (0.2-1); TOT PROT 7.8 g/dl (6.4-8.2)
[2021-01-20 19:18] VITALS: BP 130/81; PULSE 67; TEMP 98.4
[2021-01-21 08:07] LABS: FOLLICLE STIMULATING HORMONE 2.2 mIU/mL (.); LUTEINIZING HORMONE < 0.3 mIU/mL (.)
== END 2021-01-20 13:40 | disposition home or self-care (01) ==
LOC: JONCCHEMO 07:19
PROVIDERS: ATTEND Internal Medicine Hematology & Oncology
DX: Z51.11 Encounter for antineoplastic chemotherapy (principal); C50.812 Malignant neoplasm of overlapping sites of left female breast
CPT/HCPCS: 36415; 80048; 80076; 82670; 83001; 83002; 83735; 84703; 85025; 96402; J9202

== ENCOUNTER 2021-02-17 07:56 | Day surgery (SDC) | payer OTHER ==
[2021-02-17] MEDS ORDERED: LIDOCAINE HCL 1%, 10 MG/ML (20ML VIAL) ID ONE (10:00)
[2021-02-17] MEDS ORDERED: GOSERELIN ACETATE 3.6 MG IMPLANT SYRINGE SQ ONE (10:00)
[2021-02-17 10:31] LABS: BASO % 0.7 % (0-2.0); HEMATOCRIT 43.1 % (32.4-45.2); HEMOGLOBIN 14.5 GM/dL (10.7-15.3); LYMPH % 27.6 % (8-40); MCH 27.8 pg (25.7-33.7); MCHC 33.6 g/dl (32.0-36.0); MEAN CELL VOLUME 82.7 fl (80-96); MEAN PLT VOLUME 7.7 fl (7.5-11.1); MONO % 6.3 % (3.8-10.2); NEUT % 61.4 % (42.8-82.8); PLATELET COUNT 270 10^3/uL (134-434); RBC 5.22 M/mm3 (3.60-5.2); WHITE BLOOD COUNT 6.6 K/mm3 (4.0-10.0)
[2021-02-17 10:56] LABS: ALBUMIN 3.9 g/dl (3.4-5.0); BLOOD UREA NITROGEN 13.6 mg/dL (7-18); CALCIUM 9.5 mg/dL (8.5-10.1); MAGNESIUM 2.6 mg/dL (1.8-2.4)
[2021-02-17 10:59] LABS: BILIRUBIN,DIRECT 0.2 mg/dL (0.0-0.2); CREATININE 0.8 mg/dL (0.55-1.3)
[2021-02-17 11:01] LABS: BILIRUBIN,TOTAL 0.9 mg/dL (0.2-1)
[2021-02-17 17:42] VITALS: BP 132/83; PULSE 87; TEMP 98.8
[2021-02-19 08:06] LABS: CARCINOEMBRYONIC ANTIGEN 2.6 ng/mL (0.0-4.7); FOLLICLE STIMULATING HORMONE 2.7 mIU/mL (.); LUTEINIZING HORMONE < 0.3 mIU/mL (.)
== END 2021-02-17 12:15 | disposition home or self-care (01) ==
LOC: JONCCHEMO 07:56
PROVIDERS: ATTEND Internal Medicine Hematology & Oncology
DX: C50.812 Malignant neoplasm of overlapping sites of left female breast (principal)
CPT/HCPCS: 36415; 80048; 80076; 82378; 82670; 83001; 83002; 83735; 84703; 85025; 96402; J9202

== ENCOUNTER 2021-03-17 07:17 | Day surgery (SDC) | payer OTHER ==
[2021-03-17 09:14] LABS: BASO % 0.7 % (0-2.0); EOS % 3.7 % (0-4.5); HEMATOCRIT 43.7 % (32.4-45.2); LYMPH % 31.7 % (8-40); MCH 28.4 pg (25.7-33.7); MCHC 34.4 g/dl (32.0-36.0); MEAN CELL VOLUME 82.8 fl (80-96); MEAN PLT VOLUME 7.5 fl (7.5-11.1); MONO % 5.9 % (3.8-10.2); PLATELET COUNT 262 10^3/uL (134-434); RBC 5.27 M/mm3 (3.60-5.2); RDW 14.6 % (11.6-15.6); WHITE BLOOD COUNT 5.6 K/mm3 (4.0-10.0)
[2021-03-17 09:36] LABS: ALBUMIN 3.8 g/dl (3.4-5.0); BLOOD UREA NITROGEN 11.9 mg/dL (7-18); CALCIUM 9.2 mg/dL (8.5-10.1)
[2021-03-17 09:38] LABS: MAGNESIUM 2.2 mg/dL (1.8-2.4)
[2021-03-17 09:40] LABS: BILIRUBIN,DIRECT 0.1 mg/dL (0.0-0.2); CREATININE 0.7 mg/dL (0.55-1.3)
[2021-03-17 09:41] LABS: BILIRUBIN,TOTAL 0.6 mg/dL (0.2-1); TOT PROT 7.8 g/dl (6.4-8.2)
[2021-03-17] MEDS ORDERED: LIDOCAINE HCL 1%, 10 MG/ML (20ML VIAL) ID ONE (10:00)
[2021-03-17] MEDS ORDERED: GOSERELIN ACETATE 3.6 MG IMPLANT SYRINGE SQ ONE (10:00)
[2021-03-17 13:45] VITALS: BP 126/85; PULSE 59; TEMP 97.7
[2021-03-19 23:07] LABS: FOLLICLE STIMULATING HORMONE 2.8 mIU/mL (.); LUTEINIZING HORMONE 0.4 mIU/mL (.)
== END 2021-03-17 10:20 | disposition home or self-care (01) ==
LOC: JONCCHEMO 07:17
PROVIDERS: ATTEND Internal Medicine Hematology & Oncology
DX: Z51.11 Encounter for antineoplastic chemotherapy (principal); C50.812 Malignant neoplasm of overlapping sites of left female breast
CPT/HCPCS: 36415; 80048; 80076; 82378; 82728; 83001; 83002; 83540; 83550; 83735; 84703; 85025; 86300; 96401; J9202

== ENCOUNTER 2021-04-14 07:28 | Day surgery (SDC) | payer OTHER ==
[2021-04-14] MEDS ORDERED: LIDOCAINE HCL 1%, 10 MG/ML (20ML VIAL) ID ONE (10:00)
[2021-04-14] MEDS ORDERED: GOSERELIN ACETATE 3.6 MG IMPLANT SYRINGE SQ ONE (10:00)
[2021-04-14 10:13] LABS: BASO % 0.9 % (0-2.0); EOS % 4.3 % (0-4.5); HEMATOCRIT 42.8 % (32.4-45.2); HEMOGLOBIN 14.3 GM/dL (10.7-15.3); MCH 28.1 pg (25.7-33.7); MCHC 33.4 g/dl (32.0-36.0); MEAN CELL VOLUME 84.1 fl (80-96); MEAN PLT VOLUME 7.9 fl (7.5-11.1); NEUT % 54.8 % (42.8-82.8); PLATELET COUNT 275 10^3/uL (134-434); RBC 5.08 M/mm3 (3.60-5.2); RDW 13.8 % (11.6-15.6)
[2021-04-14 10:30] LABS: CALCIUM 9.6 mg/dL (8.5-10.1)
[2021-04-14 10:31] LABS: BLOOD UREA NITROGEN 15.9 mg/dL (7-18); MAGNESIUM 2.3 mg/dL (1.8-2.4)
[2021-04-14 10:33] LABS: BILIRUBIN,DIRECT 0.2 mg/dL (0.0-0.2)
[2021-04-14 10:34] LABS: CREATININE 0.8 mg/dL (0.55-1.3)
[2021-04-14 10:35] LABS: BILIRUBIN,TOTAL 0.5 mg/dL (0.2-1); TOT PROT 7.8 g/dl (6.4-8.2)
[2021-04-14 12:33] VITALS: BP 138/96; PULSE 69; TEMP 98.7
[2021-04-15 08:07] LABS: CARCINOEMBRYONIC ANTIGEN 2.3 ng/mL (0.0-4.7); FOLLICLE STIMULATING HORMONE 2.7 mIU/mL (.); LUTEINIZING HORMONE 0.3 mIU/mL (.)
== END 2021-04-14 11:00 | disposition home or self-care (01) ==
LOC: JONCCHEMO 07:28
PROVIDERS: ATTEND Internal Medicine Hematology & Oncology
DX: Z51.11 Encounter for antineoplastic chemotherapy (principal); C50.812 Malignant neoplasm of overlapping sites of left female breast; Z17.0 Estrogen receptor positive status [ER+]
CPT/HCPCS: 36415; 80048; 80076; 82378; 82670; 83001; 83002; 83735; 84703; 85025; 86300; 96402; J9202

== ENCOUNTER 2021-05-11 07:16 | Day surgery (SDC) | payer OTHER ==
[2021-05-11] MEDS ORDERED: LIDOCAINE HCL 1%, 10 MG/ML (20ML VIAL) ID ONE (10:00)
[2021-05-11] MEDS ORDERED: GOSERELIN ACETATE 3.6 MG IMPLANT SYRINGE SQ ONE (10:00)
[2021-05-11 11:06] LABS: BASO % 0.4 % (0-2.0); EOS % 3.8 % (0-4.5); HEMATOCRIT 42.4 % (32.4-45.2); HEMOGLOBIN 14.5 GM/dL (10.7-15.3); LYMPH % 33.2 % (8-40); MCHC 34.1 g/dl (32.0-36.0); MEAN CELL VOLUME 82.1 fl (80-96); MEAN PLT VOLUME 7.3 fl (7.5-11.1); MONO % 8.7 % (3.8-10.2); NEUT % 53.9 % (42.8-82.8); PLATELET COUNT 270 10^3/uL (134-434); RBC 5.16 M/mm3 (3.60-5.2); RDW 13.6 % (11.6-15.6); WHITE BLOOD COUNT 6.1 K/mm3 (4.0-10.0)
[2021-05-11 11:28] LABS: ALBUMIN 3.9 g/dl (3.4-5.0); BLOOD UREA NITROGEN 12.4 mg/dL (7-18); CALCIUM 9.6 mg/dL (8.5-10.1)
[2021-05-11 11:31] LABS: BILIRUBIN,DIRECT 0.1 mg/dL (0.0-0.2); CREATININE 0.7 mg/dL (0.55-1.3)
[2021-05-11 11:33] LABS: BILIRUBIN,TOTAL 0.5 mg/dL (0.2-1); TOT PROT 7.7 g/dl (6.4-8.2)
[2021-05-11 18:33] VITALS: BP 130/83; PULSE 69; TEMP 97.8
[2021-05-12 08:08] LABS: FOLLICLE STIMULATING HORMONE 2.8 mIU/mL (.); LUTEINIZING HORMONE 0.5 mIU/mL (.)
== END 2021-05-11 12:00 | disposition home or self-care (01) ==
LOC: JONCCHEMO 07:16
PROVIDERS: ATTEND Internal Medicine Hematology & Oncology
DX: Z51.11 Encounter for antineoplastic chemotherapy (principal); C50.812 Malignant neoplasm of overlapping sites of left female breast
CPT/HCPCS: 36415; 80048; 80076; 82378; 82670; 83001; 83002; 83735; 84703; 85025; 86300; 96402; J9202

== ENCOUNTER 2021-06-15 07:14 | Day surgery (SDC) | payer OTHER ==
[~2021-06-15 07:14] MED LIST changes: -ACETAMINOPHEN 325 MG TABLET (FP) PO ONE; -DIPHENHYDRAMINE 25 MG in SODIUM CHLORIDE 50 ML IVPB ONE; +GOSERELIN ACETATE 3.6 MG IMPLANT SYRINGE SQ ONE; +LIDOCAINE HCL 1%, 10 MG/ML (20ML VIAL) ID ONE; -PERTUZUMAB 420 MG in SODIUM CHLORIDE 250 ML IVPB ONE; -SODIUM CHLORIDE IVPB ONE; -TRASTUZUMAB ANNS IVPB ONE
[2021-06-15] MEDS ORDERED: GOSERELIN ACETATE 3.6 MG IMPLANT SYRINGE SQ ONE (10:00)
[2021-06-15] MEDS ORDERED: LIDOCAINE HCL 1%, 10 MG/ML (20ML VIAL) ID ONE (10:00)
[2021-06-15 11:02] LABS: BASO % 0.7 % (0-2.0); EOS % 3.7 % (0-4.5); HEMATOCRIT 45.2 % (32.4-45.2); LYMPH % 29.3 % (8-40); MCH 27.4 pg (25.7-33.7); MEAN PLT VOLUME 7.7 fl (7.5-11.1); NEUT % 59.3 % (42.8-82.8); PLATELET COUNT 273 10^3/uL (134-434); RBC 5.45 M/mm3 (3.60-5.2); WHITE BLOOD COUNT 6.1 K/mm3 (4.0-10.0)
[2021-06-15 11:24] LABS: CALCIUM 9.7 mg/dL (8.5-10.1)
[2021-06-15 11:25] LABS: MAGNESIUM 2.5 mg/dL (1.8-2.4)
[2021-06-15 11:27] LABS: BILIRUBIN,DIRECT 0.1 mg/dL (0.0-0.2); CREATININE 0.7 mg/dL (0.55-1.3)
[2021-06-15 11:29] LABS: BILIRUBIN,TOTAL 0.4 mg/dL (0.2-1)
[2021-06-15 18:26] VITALS: BP 145/91; PULSE 75; TEMP 98.3
[2021-06-16 08:10] LABS: FOLLICLE STIMULATING HORMONE 5.5 mIU/mL (.); LUTEINIZING HORMONE < 0.3 mIU/mL (.)
== END 2021-06-15 12:15 | disposition home or self-care (01) ==
LOC: JONCCHEMO 07:14
PROVIDERS: ATTEND Internal Medicine Hematology & Oncology
DX: Z51.11 Encounter for antineoplastic chemotherapy (principal); C50.812 Malignant neoplasm of overlapping sites of left female breast
CPT/HCPCS: 36415; 80048; 80076; 82378; 82670; 83001; 83002; 83735; 84703; 85025; 86300; 96401; J9202

== ENCOUNTER 2021-07-14 06:43 | Day surgery (SDC) | payer OTHER ==
[2021-07-14] MEDS ORDERED: LIDOCAINE HCL 1%, 10 MG/ML (20ML VIAL) ID ONE (10:00)
[2021-07-14] MEDS ORDERED: GOSERELIN ACETATE 3.6 MG IMPLANT SYRINGE SQ ONE (10:00)
[2021-07-14 11:55] LABS: BASO % 0.8 % (0-2.0); EOS % 3.4 % (0-4.5); HEMATOCRIT 43.7 % (32.4-45.2); HEMOGLOBIN 14.7 GM/dL (10.7-15.3); LYMPH % 30.7 % (8-40); MCH 27.5 pg (25.7-33.7); MCHC 33.7 g/dl (32.0-36.0); MEAN CELL VOLUME 81.6 fl (80-96); MEAN PLT VOLUME 7.7 fl (7.5-11.1); MONO % 6.3 % (3.8-10.2); NEUT % 58.8 % (42.8-82.8); PLATELET COUNT 271 10^3/uL (134-434); RBC 5.36 M/mm3 (3.60-5.2); RDW 13.8 % (11.6-15.6); WHITE BLOOD COUNT 6.1 K/mm3 (4.0-10.0)
[2021-07-14 12:15] LABS: CALCIUM 9.5 mg/dL (8.5-10.1)
[2021-07-14 12:16] LABS: ALBUMIN 3.8 g/dl (3.4-5.0); BLOOD UREA NITROGEN 14.8 mg/dL (7-18)
[2021-07-14 12:18] LABS: BILIRUBIN,DIRECT 0.1 mg/dL (0.0-0.2)
[2021-07-14 12:19] LABS: CREATININE 0.8 mg/dL (0.55-1.3)
[2021-07-14 12:20] LABS: TOT PROT 7.6 g/dl (6.4-8.2)
[2021-07-14 12:22] LABS: BILIRUBIN,TOTAL 0.9 mg/dL (0.2-1)
[2021-07-14 18:24] VITALS: BP 138/91; PULSE 84; TEMP 98.6
[2021-07-15 08:08] LABS: CARCINOEMBRYONIC ANTIGEN 2.6 ng/mL (0.0-4.7)
[2021-07-16 21:12] LABS: LUTEINIZING HORMONE 0.3 mIU/mL (.)
== END 2021-07-14 12:55 | disposition home or self-care (01) ==
LOC: JONCCHEMO 06:43
PROVIDERS: ATTEND Internal Medicine Hematology & Oncology
DX: Z51.11 Encounter for antineoplastic chemotherapy (principal); C50.812 Malignant neoplasm of overlapping sites of left female breast
CPT/HCPCS: 36415; 80048; 80076; 82378; 82670; 83001; 83002; 84703; 85025; 96402; J9202

== ENCOUNTER 2021-08-11 06:53 | Day surgery (SDC) | payer OTHER ==
[2021-08-11] MEDS ORDERED: LIDOCAINE HCL 1%, 10 MG/ML (20ML VIAL) ID ONE (10:00)
[2021-08-11] MEDS ORDERED: GOSERELIN ACETATE 3.6 MG IMPLANT SYRINGE SQ ONE (10:00)
[2021-08-11 11:50] LABS: BASO % 0.9 % (0-2.0); EOS % 4.3 % (0-4.5); HEMATOCRIT 43.9 % (32.4-45.2); HEMOGLOBIN 14.8 GM/dL (10.7-15.3); LYMPH % 33.3 % (8-40); MCH 27.3 pg (25.7-33.7); MCHC 33.6 g/dl (32.0-36.0); MEAN CELL VOLUME 81.4 fl (80-96); MEAN PLT VOLUME 7.5 fl (7.5-11.1); NEUT % 54.5 % (42.8-82.8); PLATELET COUNT 275 10^3/uL (134-434); RDW 14.2 % (11.6-15.6); WHITE BLOOD COUNT 5.4 K/mm3 (4.0-10.0)
[2021-08-11 12:20] LABS: BLOOD UREA NITROGEN 16.7 mg/dL (7-18); CALCIUM 9.7 mg/dL (8.5-10.1)
[2021-08-11 12:21] LABS: MAGNESIUM 2.5 mg/dL (1.8-2.4)
[2021-08-11 12:22] LABS: BILIRUBIN,DIRECT 0.2 mg/dL (0.0-0.2)
[2021-08-11 12:23] LABS: CREATININE 0.7 mg/dL (0.55-1.3)
[2021-08-11 12:24] LABS: TOT PROT 7.7 g/dl (6.4-8.2)
[2021-08-11 12:25] LABS: BILIRUBIN,TOTAL 0.5 mg/dL (0.2-1)
[2021-08-11 12:27] VITALS: BP 119/84; PULSE 60; TEMP 97.9
[2021-08-12 08:06] LABS: FOLLICLE STIMULATING HORMONE 3.5 mIU/mL (.); LUTEINIZING HORMONE 0.5 mIU/mL (.)
== END 2021-08-11 12:45 | disposition home or self-care (01) ==
LOC: JONCCHEMO 06:53
PROVIDERS: ATTEND Internal Medicine Hematology & Oncology
DX: Z51.11 Encounter for antineoplastic chemotherapy (principal); C50.812 Malignant neoplasm of overlapping sites of left female breast
CPT/HCPCS: 36415; 80048; 80076; 82378; 82670; 83001; 83002; 83735; 84703; 85025; 86300; 96402; J9202

== ENCOUNTER 2021-09-08 07:33 | Day surgery (SDC) | payer OTHER ==
[2021-09-08] MEDS ORDERED: LIDOCAINE HCL 1%, 10 MG/ML (20ML VIAL) ID ONE (10:00)
[2021-09-08] MEDS ORDERED: GOSERELIN ACETATE 3.6 MG IMPLANT SYRINGE SQ ONE (10:00)
[2021-09-08 12:03] LABS: BASO % 0.6 % (0-2.0); EOS % 3.4 % (0-4.5); HEMATOCRIT 42.6 % (32.4-45.2); HEMOGLOBIN 14.6 GM/dL (10.7-15.3); LYMPH % 28.3 % (8-40); MCH 27.9 pg (25.7-33.7); MCHC 34.3 g/dl (32.0-36.0); MEAN CELL VOLUME 81.3 fl (80-96); MEAN PLT VOLUME 7.8 fl (7.5-11.1); MONO % 6.7 % (3.8-10.2); PLATELET COUNT 270 10^3/uL (134-434); RBC 5.24 M/mm3 (3.60-5.2); WHITE BLOOD COUNT 5.9 K/mm3 (4.0-10.0)
[2021-09-08 12:23] LABS: BLOOD UREA NITROGEN 12.4 mg/dL (7-18); CALCIUM 9.9 mg/dL (8.5-10.1); MAGNESIUM 2.4 mg/dL (1.8-2.4)
[2021-09-08 12:26] LABS: BILIRUBIN,DIRECT 0.1 mg/dL (0.0-0.2); CREATININE 0.8 mg/dL (0.55-1.3)
[2021-09-08 12:28] LABS: BILIRUBIN,TOTAL 0.4 mg/dL (0.2-1); TOT PROT 7.7 g/dl (6.4-8.2)
[2021-09-08 12:45] VITALS: BP 124/90; PULSE 70; RESP 18; TEMP 98.5
[2021-09-09 08:07] LABS: CARCINOEMBRYONIC ANTIGEN 2.5 ng/mL (0.0-4.7); FOLLICLE STIMULATING HORMONE 3.2 mIU/mL (.); LUTEINIZING HORMONE < 0.3 mIU/mL (.)
== END 2021-09-08 12:45 | disposition home or self-care (01) ==
LOC: JONCCHEMO 07:33
PROVIDERS: ATTEND Internal Medicine Hematology & Oncology
DX: Z51.11 Encounter for antineoplastic chemotherapy (principal); C50.812 Malignant neoplasm of overlapping sites of left female breast
CPT/HCPCS: 36415; 80048; 80076; 82378; 82670; 83001; 83002; 83735; 84703; 85025; 86300; 96402; J9202

== ENCOUNTER 2021-10-13 08:21 | Day surgery (SDC) | payer OTHER ==
[2021-10-13] MEDS ORDERED: GOSERELIN ACETATE 3.6 MG IMPLANT SYRINGE SQ ONE (10:00)
[2021-10-13] MEDS ORDERED: LIDOCAINE HCL 1%, 10 MG/ML (20ML VIAL) ID ONE (10:00)
[2021-10-13 10:52] LABS: BASO % 0.6 % (0-2.0); EOS % 3.7 % (0-4.5); HEMATOCRIT 43.4 % (32.4-45.2); HEMOGLOBIN 14.3 GM/dL (10.7-15.3); LYMPH % 32.9 % (8-40); MCH 27.1 pg (25.7-33.7); MCHC 32.9 g/dl (32.0-36.0); MEAN CELL VOLUME 82.5 fl (80-96); MEAN PLT VOLUME 7.9 fl (7.5-11.1); MONO % 5.9 % (3.8-10.2); NEUT % 56.9 % (42.8-82.8); PLATELET COUNT 290 10^3/uL (134-434); RBC 5.26 M/mm3 (3.60-5.2)
[2021-10-13 11:03] LABS: CALCIUM 9.8 mg/dL (8.5-10.1); MAGNESIUM 2.4 mg/dL (1.8-2.4)
[2021-10-13 11:04] LABS: ALBUMIN 3.8 g/dl (3.4-5.0)
[2021-10-13 11:06] LABS: BILIRUBIN,DIRECT 0.1 mg/dL (0.0-0.2); CREATININE 0.8 mg/dL (0.55-1.3)
[2021-10-13 11:08] LABS: BILIRUBIN,TOTAL 0.8 mg/dL (0.2-1); TOT PROT 7.8 g/dl (6.4-8.2)
[2021-10-13 16:15] VITALS: BP 130/84; PULSE 57; RESP 18; TEMP 98.3
[2021-10-14 08:07] LABS: FOLLICLE STIMULATING HORMONE 2.9 mIU/mL (.); LUTEINIZING HORMONE < 0.3 mIU/mL (.)
[2021-10-16 14:09] LABS: CARCINOEMBRYONIC ANTIGEN 2.7 ng/mL (0.0-4.7)
== END 2021-10-13 12:10 | disposition home or self-care (01) ==
LOC: JONCCHEMO 08:21
PROVIDERS: ATTEND Internal Medicine Hematology & Oncology
DX: Z51.11 Encounter for antineoplastic chemotherapy (principal); C50.812 Malignant neoplasm of overlapping sites of left female breast
CPT/HCPCS: 36415; 80048; 80076; 82378; 82670; 83001; 83002; 83735; 84703; 85025; 86300; 96402; J9202

== ENCOUNTER 2021-11-10 10:22 | Day surgery (SDC) | payer OTHER ==
[~2021-11-10 10:22] MED LIST changes: +LIDOCAINE HCL 1%, 10 MG/ML (10ML VIAL) MDV ID ONE; -LIDOCAINE HCL 1%, 10 MG/ML (20ML VIAL) ID ONE
[2021-11-10 10:50] LABS: BASO % 0.8 % (0-2.0); EOS % 3.7 % (0-4.5); HEMATOCRIT 46.2 % (32.4-45.2); HEMOGLOBIN 15.3 GM/dL (10.7-15.3); LYMPH % 36.3 % (8-40); MCH 27.2 pg (25.7-33.7); MEAN CELL VOLUME 82.3 fl (80-96); MEAN PLT VOLUME 7.6 fl (7.5-11.1); MONO % 6.1 % (3.8-10.2); NEUT % 53.1 % (42.8-82.8); PLATELET COUNT 293 10^3/uL (134-434); RBC 5.61 M/mm3 (3.60-5.2); RDW 14.2 % (11.6-15.6); WHITE BLOOD COUNT 5.9 K/mm3 (4.0-10.0)
[2021-11-10 11:16] LABS: BLOOD UREA NITROGEN 11.6 mg/dL (7-18)
[2021-11-10 11:17] LABS: ALBUMIN 3.9 g/dl (3.4-5.0); MAGNESIUM 2.4 mg/dL (1.8-2.4)
[2021-11-10 11:19] LABS: BILIRUBIN,DIRECT 0.1 mg/dL (0.0-0.2); CREATININE 0.7 mg/dL (0.55-1.3)
[2021-11-10 11:21] LABS: BILIRUBIN,TOTAL 0.6 mg/dL (0.2-1)
[2021-11-10 12:59] VITALS: BP 126/86; PULSE 74; RESP 18; TEMP 98.5
[2021-11-11 16:07] LABS: FOLLICLE STIMULATING HORMONE 3.3 mIU/mL (.); LUTEINIZING HORMONE 0.4 mIU/mL (.)
[2021-11-11 17:08] LABS: CARCINOEMBRYONIC ANTIGEN 2.6 ng/mL (0.0-4.7)
== END 2021-11-10 13:00 | disposition home or self-care (01) ==
LOC: JONCCHEMO 10:22
PROVIDERS: ATTEND Internal Medicine Hematology & Oncology
DX: Z51.11 Encounter for antineoplastic chemotherapy (principal); C50.812 Malignant neoplasm of overlapping sites of left female breast
CPT/HCPCS: 36415; 80048; 80076; 82378; 82670; 83001; 83002; 83735; 84703; 85025; 86300; 96402; J9202

== ENCOUNTER 2021-12-10 10:04 | Day surgery (SDC) | payer OTHER ==
[~2021-12-10 10:04] MED LIST changes: -LIDOCAINE HCL 1%, 10 MG/ML (10ML VIAL) MDV ID ONE; +LIDOCAINE HCL 1%, 10 MG/ML (20ML VIAL) ID ONE
[2021-12-10 10:56] LABS: HEMATOCRIT 44.8 % (32.4-45.2); HEMOGLOBIN 14.7 GM/dL (10.7-15.3); MCH 26.9 pg (25.7-33.7); MCHC 32.9 g/dl (32.0-36.0); MEAN CELL VOLUME 81.8 fl (80-96); RBC 5.47 M/mm3 (3.60-5.2); WHITE BLOOD COUNT 5.7 K/mm3 (4.0-10.0)
[2021-12-10 10:57] LABS: BASO % 0.8 % (0-2.0); EOS % 3.3 % (0-4.5); LYMPH % 34.4 % (8-40); MEAN PLT VOLUME 7.7 fl (7.5-11.1); MONO % 5.8 % (3.8-10.2); NEUT % 55.7 % (42.8-82.8); PLATELET COUNT 288 10^3/uL (134-434); RDW 14.1 % (11.6-15.6)
[2021-12-10 11:22] LABS: ALBUMIN 3.8 g/dl (3.4-5.0); BLOOD UREA NITROGEN 14.1 mg/dL (7-18); CALCIUM 9.6 mg/dL (8.5-10.1); MAGNESIUM 2.3 mg/dL (1.8-2.4)
[2021-12-10 11:25] LABS: BILIRUBIN,DIRECT 0.2 mg/dL (0.0-0.2); CREATININE 0.7 mg/dL (0.55-1.3)
[2021-12-10 11:27] LABS: BILIRUBIN,TOTAL 0.8 mg/dL (0.2-1); TOT PROT 7.6 g/dl (6.4-8.2)
[2021-12-10 13:43] VITALS: BP 137/93; PULSE 71; RESP 20; TEMP 97.8
[2021-12-12 10:09] LABS: FOLLICLE STIMULATING HORMONE 2.8 mIU/mL (.); LUTEINIZING HORMONE < 0.3 mIU/mL (.)
== END 2021-12-10 12:10 | disposition home or self-care (01) ==
LOC: JONCCHEMO 10:04
PROVIDERS: ATTEND Internal Medicine Hematology & Oncology
DX: Z51.11 Encounter for antineoplastic chemotherapy (principal); C50.812 Malignant neoplasm of overlapping sites of left female breast
CPT/HCPCS: 36415; 80048; 80076; 82378; 82670; 83001; 83002; 83735; 84703; 85025; 86300; 96402; J9202

== ENCOUNTER 2022-01-11 10:25 | Day surgery (SDC) | payer OTHER ==
[2022-01-11 10:53] LABS: EOS % 3.2 % (0-4.5); HEMATOCRIT 45.8 % (32.4-45.2); HEMOGLOBIN 15.3 GM/dL (10.7-15.3); LYMPH % 30.8 % (8-40); MCH 27.3 pg (25.7-33.7); MCHC 33.3 g/dl (32.0-36.0); MEAN CELL VOLUME 81.8 fl (80-96); MEAN PLT VOLUME 7.9 fl (7.5-11.1); MONO % 5.5 % (3.8-10.2); NEUT % 59.5 % (42.8-82.8); PLATELET COUNT 322 10^3/uL (134-434); RBC 5.61 M/mm3 (3.60-5.2); RDW 14.4 % (11.6-15.6); WHITE BLOOD COUNT 6.1 K/mm3 (4.0-10.0)
[2022-01-11 12:55] LABS: CALCIUM 9.4 mg/dL (8.5-10.1)
[2022-01-11 12:56] LABS: ALBUMIN 3.9 g/dl (3.4-5.0); MAGNESIUM 2.3 mg/dL (1.8-2.4)
[2022-01-11 12:57] LABS: BLOOD UREA NITROGEN 15.4 mg/dL (7-18)
[2022-01-11 12:59] LABS: BILIRUBIN,DIRECT 0.1 mg/dL (0.0-0.2); CREATININE 0.8 mg/dL (0.55-1.3)
[2022-01-11 13:00] LABS: BILIRUBIN,TOTAL 0.6 mg/dL (0.2-1)
[2022-01-11 16:37] VITALS: BP 135/61; PULSE 72; RESP 20; TEMP 98.4
[2022-01-12 13:07] LABS: FOLLICLE STIMULATING HORMONE 2.7 mIU/mL (.); LUTEINIZING HORMONE < 0.3 mIU/mL (.)
== END 2022-01-11 12:15 | disposition home or self-care (01) ==
LOC: JONCCHEMO 10:25
PROVIDERS: ATTEND Internal Medicine Hematology & Oncology
DX: Z51.11 Encounter for antineoplastic chemotherapy (principal); C50.812 Malignant neoplasm of overlapping sites of left female breast
CPT/HCPCS: 36415; 80048; 80076; 82670; 83001; 83002; 83735; 84703; 85025; 96402; J9202

== ENCOUNTER 2022-02-15 09:48 | Day surgery (SDC) | payer OTHER ==
[2022-02-15] MEDS ORDERED: LIDOCAINE HCL 1%, 10 MG/ML (20ML VIAL) ID ONE (10:00)
[2022-02-15] MEDS ORDERED: GOSERELIN ACETATE 3.6 MG IMPLANT SYRINGE SQ ONE (10:00)
[2022-02-15 10:30] LABS: BASO % 0.4 % (0-2.0); EOS % 4.5 % (0-4.5); HEMATOCRIT 46.3 % (32.4-45.2); HEMOGLOBIN 15.2 GM/dL (10.7-15.3); LYMPH % 27.9 % (8-40); MCH 27.1 pg (25.7-33.7); MCHC 32.8 g/dl (32.0-36.0); MEAN CELL VOLUME 82.6 fl (80-96); MEAN PLT VOLUME 7.4 fl (7.5-11.1); MONO % 6.2 % (3.8-10.2); PLATELET COUNT 274 10^3/uL (134-434); RDW 14.2 % (11.6-15.6); WHITE BLOOD COUNT 6.1 K/mm3 (4.0-10.0)
[2022-02-15 10:57] LABS: ALBUMIN 3.8 g/dl (3.4-5.0); BLOOD UREA NITROGEN 13.8 mg/dL (7-18); MAGNESIUM 2.3 mg/dL (1.8-2.4)
[2022-02-15 11:00] LABS: BILIRUBIN,DIRECT 0.1 mg/dL (0.0-0.2); CREATININE 0.8 mg/dL (0.55-1.3)
[2022-02-15 11:02] LABS: BILIRUBIN,TOTAL 0.4 mg/dL (0.2-1); TOT PROT 7.9 g/dl (6.4-8.2)
[2022-02-15 15:03] VITALS: BP 135/87; PULSE 85; RESP 20; TEMP 97.5
== END 2022-02-15 12:00 | disposition home or self-care (01) ==
LOC: JONCCHEMO 09:48
PROVIDERS: ATTEND Internal Medicine Hematology & Oncology
DX: Z51.11 Encounter for antineoplastic chemotherapy (principal); C50.912 Malignant neoplasm of unspecified site of left female breast
CPT/HCPCS: 36415; 80048; 80076; 82378; 82670; 83735; 84703; 85025; 86300; 96402; J9202

== ENCOUNTER 2022-03-15 09:15 | Day surgery (SDC) | payer OTHER ==
[2022-03-15 09:54] LABS: BASO % 0.7 % (0-2.0); EOS % 4.3 % (0-4.5); HEMATOCRIT 44.3 % (32.4-45.2); HEMOGLOBIN 14.9 GM/dL (10.7-15.3); LYMPH % 31.6 % (8-40); MCH 27.7 pg (25.7-33.7); MCHC 33.6 g/dl (32.0-36.0); MEAN CELL VOLUME 82.4 fl (80-96); MEAN PLT VOLUME 7.6 fl (7.5-11.1); MONO % 5.7 % (3.8-10.2); NEUT % 57.7 % (42.8-82.8); PLATELET COUNT 282 10^3/uL (134-434); RBC 5.38 M/mm3 (3.60-5.2); RDW 14.1 % (11.6-15.6); WHITE BLOOD COUNT 6.6 K/mm3 (4.0-10.0)
[2022-03-15] MEDS ORDERED: LIDOCAINE HCL 1%, 10 MG/ML (20ML VIAL) ID ONE (10:00)
[2022-03-15] MEDS ORDERED: GOSERELIN ACETATE 3.6 MG IMPLANT SYRINGE SQ ONE (10:00)
[2022-03-15 10:15] LABS: CALCIUM 9.4 mg/dL (8.5-10.1)
[2022-03-15 10:16] LABS: ALBUMIN 3.8 g/dl (3.4-5.0); BLOOD UREA NITROGEN 15.2 mg/dL (7-18); MAGNESIUM 2.4 mg/dL (1.8-2.4)
[2022-03-15 10:18] LABS: BILIRUBIN,DIRECT 0.2 mg/dL (0.0-0.2); CREATININE 0.7 mg/dL (0.55-1.3)
[2022-03-15 10:20] LABS: BILIRUBIN,TOTAL 0.6 mg/dL (0.2-1); TOT PROT 7.8 g/dl (6.4-8.2)
[2022-03-15 13:40] VITALS: BP 128/81; PULSE 67; RESP 20; TEMP 98.1
== END 2022-03-15 10:00 | disposition home or self-care (01) ==
LOC: JONCCHEMO 09:15
PROVIDERS: ATTEND Internal Medicine Hematology & Oncology
DX: Z51.11 Encounter for antineoplastic chemotherapy (principal); C50.812 Malignant neoplasm of overlapping sites of left female breast
CPT/HCPCS: 36415; 80048; 80076; 82306; 82378; 82670; 83735; 84703; 85025; 86300; 96402; J9202

== ENCOUNTER 2022-04-12 11:00 | Day surgery (SDC) | payer OTHER ==
[2022-04-12 11:14] LABS: BASO % 0.9 % (0-2.0); EOS % 7.7 % (0-4.5); HEMATOCRIT 44.1 % (32.4-45.2); HEMOGLOBIN 14.6 GM/dL (10.7-15.3); LYMPH % 28.3 % (8-40); MCH 26.6 pg (25.7-33.7); MEAN CELL VOLUME 80.5 fl (80-96); MEAN PLT VOLUME 7.6 fl (7.5-11.1); MONO % 5.6 % (3.8-10.2); NEUT % 57.5 % (42.8-82.8); PLATELET COUNT 277 10^3/uL (134-434); RBC 5.47 M/mm3 (3.60-5.2); RDW 14.5 % (11.6-15.6); WHITE BLOOD COUNT 6.7 K/mm3 (4.0-10.0)
[2022-04-12 11:43] LABS: BLOOD UREA NITROGEN 13.3 mg/dL (7-18); CALCIUM 9.4 mg/dL (8.5-10.1); MAGNESIUM 2.1 mg/dL (1.8-2.4)
[2022-04-12 11:46] LABS: CREATININE 0.8 mg/dL (0.55-1.3)
[2022-04-12 16:10] VITALS: BP 139/84; PULSE 83; RESP 20; TEMP 97.9
[2022-04-13 23:11] LABS: CARCINOEMBRYONIC ANTIGEN 2.8 ng/mL (0.0-4.7)
== END 2022-04-12 13:00 | disposition home or self-care (01) ==
LOC: JONCCHEMO 11:00
PROVIDERS: ATTEND Internal Medicine Hematology & Oncology
DX: Z51.11 Encounter for antineoplastic chemotherapy (principal); C50.812 Malignant neoplasm of overlapping sites of left female breast
CPT/HCPCS: 36415; 80048; 82378; 82670; 83735; 84703; 85025; 86300; 96402; J9202

== ENCOUNTER 2022-05-10 14:31 | Day surgery (SDC) | payer OTHER ==
[2022-05-10 15:17] LABS: BASO % 0.8 % (0-2.0); EOS % 6.8 % (0-4.5); HEMATOCRIT 42.6 % (32.4-45.2); HEMOGLOBIN 14.3 GM/dL (10.7-15.3); LYMPH % 28.6 % (8-40); MCHC 33.6 g/dl (32.0-36.0); MEAN CELL VOLUME 80.2 fl (80-96); MEAN PLT VOLUME 7.4 fl (7.5-11.1); NEUT % 57.8 % (42.8-82.8); PLATELET COUNT 280 10^3/uL (134-434); RBC 5.32 M/mm3 (3.60-5.2); RDW 14.3 % (11.6-15.6)
[2022-05-10 15:38] LABS: CALCIUM 9.5 mg/dL (8.5-10.1)
[2022-05-10 15:39] LABS: ALBUMIN 3.8 g/dl (3.4-5.0); BLOOD UREA NITROGEN 11.8 mg/dL (7-18); MAGNESIUM 2.3 mg/dL (1.8-2.4)
[2022-05-10 15:42] LABS: BILIRUBIN,DIRECT 0.1 mg/dL (0.0-0.2); CREATININE 0.7 mg/dL (0.55-1.3)
[2022-05-10 15:43] LABS: TOT PROT 7.9 g/dl (6.4-8.2)
[2022-05-10 15:44] LABS: BILIRUBIN,TOTAL 0.5 mg/dL (0.2-1)
[2022-05-10 18:17] VITALS: BP 154/96; PULSE 89; RESP 20; TEMP 98.1
[2022-05-12 08:06] LABS: FOLLICLE STIMULATING HORMONE 2.4 mIU/mL (.); LUTEINIZING HORMONE < 0.3 mIU/mL (.)
== END 2022-05-10 16:00 | disposition home or self-care (01) ==
LOC: JONCCHEMO 14:31
PROVIDERS: ATTEND Internal Medicine Hematology & Oncology
DX: Z51.11 Encounter for antineoplastic chemotherapy (principal); C50.812 Malignant neoplasm of overlapping sites of left female breast
CPT/HCPCS: 36415; 80048; 80076; 82378; 82670; 83001; 83002; 83735; 84703; 85025; 86300; 96402; J9202

== ENCOUNTER 2022-06-07 14:12 | Day surgery (SDC) | payer OTHER ==
[2022-06-07 15:15] LABS: BASO % 0.8 % (0-2.0); HEMATOCRIT 41.8 % (32.4-45.2); HEMOGLOBIN 14.1 GM/dL (10.7-15.3); LYMPH % 32.5 % (8-40); MCH 27.2 pg (25.7-33.7); MCHC 33.7 g/dl (32.0-36.0); MEAN CELL VOLUME 80.6 fl (80-96); MEAN PLT VOLUME 7.7 fl (7.5-11.1); MONO % 5.9 % (3.8-10.2); NEUT % 55.8 % (42.8-82.8); PLATELET COUNT 284 10^3/uL (134-434); RBC 5.19 M/mm3 (3.60-5.2); RDW 14.4 % (11.6-15.6); WHITE BLOOD COUNT 7.8 K/mm3 (4.0-10.0)
[2022-06-07 15:41] LABS: POTASSIUM 3.6 mmol/L (3.5-5.1)
[2022-06-07 15:43] LABS: CALCIUM 9.6 mg/dL (8.5-10.1)
[2022-06-07 15:44] LABS: ALBUMIN 3.9 g/dl (3.4-5.0); MAGNESIUM 2.3 mg/dL (1.8-2.4)
[2022-06-07 15:46] LABS: BILIRUBIN,DIRECT 0.1 mg/dL (0.0-0.2)
[2022-06-07 15:47] LABS: CREATININE 0.7 mg/dL (0.55-1.3)
[2022-06-07 15:48] LABS: BILIRUBIN,TOTAL 0.3 mg/dL (0.2-1); TOT PROT 7.9 g/dl (6.4-8.2)
[2022-06-07 16:22] VITALS: BP 115/86; PULSE 71; RESP 20; TEMP 97.9
== END 2022-06-07 16:20 | disposition home or self-care (01) ==
LOC: JONCCHEMO 14:12
PROVIDERS: ATTEND Internal Medicine Hematology & Oncology
DX: Z51.11 Encounter for antineoplastic chemotherapy (principal); C50.812 Malignant neoplasm of overlapping sites of left female breast
CPT/HCPCS: 36415; 80048; 80076; 82378; 82670; 83001; 83002; 83735; 84703; 85025; 86300; 96402; J9202

== ENCOUNTER 2022-07-12 13:45 | Day surgery (SDC) | payer OTHER ==
[2022-07-12 14:26] LABS: HEMATOCRIT 43.2 % (32.4-45.2); HEMOGLOBIN 14.3 GM/dL (10.7-15.3); LYMPH % 28.4 % (8-40); MCH 26.7 pg (25.7-33.7); MCHC 33.1 g/dl (32.0-36.0); MEAN CELL VOLUME 80.6 fl (80-96); MEAN PLT VOLUME 7.6 fl (7.5-11.1); NEUT % 59.8 % (42.8-82.8); PLATELET COUNT 284 10^3/uL (134-434); RBC 5.36 M/mm3 (3.60-5.2); RDW 14.2 % (11.6-15.6); WHITE BLOOD COUNT 7.5 K/mm3 (4.0-10.0)
[2022-07-12 14:27] LABS: BASO % 0.8 % (0-2.0); EOS % 4.5 % (0-4.5); MONO % 6.5 % (3.8-10.2)
[2022-07-12 14:49] LABS: ALBUMIN 3.8 g/dl (3.4-5.0); CALCIUM 9.7 mg/dL (8.5-10.1); MAGNESIUM 2.2 mg/dL (1.8-2.4)
[2022-07-12 14:52] LABS: BILIRUBIN,DIRECT 0.1 mg/dL (0.0-0.2); CREATININE 0.7 mg/dL (0.55-1.3)
[2022-07-12 14:54] LABS: BILIRUBIN,TOTAL 0.3 mg/dL (0.2-1); TOT PROT 7.7 g/dl (6.4-8.2)
[2022-07-12 16:04] VITALS: BP 120/82; PULSE 84; RESP 18; TEMP 97.4
[2022-07-13 10:42] LABS: CARCINOEMBRYONIC ANTIGEN 2.7 ng/mL (0.0-4.7); LUTEINIZING HORMONE < 0.3 mIU/mL (.)
== END 2022-07-12 15:45 | disposition home or self-care (01) ==
LOC: JONCCHEMO 13:45 → J7W 13:46 → JONCCHEMO 15:45
PROVIDERS: ATTEND Internal Medicine Hematology & Oncology
DX: Z51.11 Encounter for antineoplastic chemotherapy (principal); C50.812 Malignant neoplasm of overlapping sites of left female breast; Z17.0 Estrogen receptor positive status [ER+]
CPT/HCPCS: 36415; 80048; 80076; 82378; 82670; 83001; 83002; 83735; 84703; 85025; 86300; 96402; J9202

== ENCOUNTER 2022-09-20 15:11 | Day surgery (SDC) | payer OTHER ==
[2022-09-20 15:52] LABS: BASO % 0.8 % (0-2.0); EOS % 4.4 % (0-4.5); HEMATOCRIT 42.8 % (32.4-45.2); HEMOGLOBIN 14.4 GM/dL (10.7-15.3); MCH 26.9 pg (25.7-33.7); MCHC 33.6 g/dl (32.0-36.0); MEAN CELL VOLUME 80.3 fl (80-96); MEAN PLT VOLUME 7.6 fl (7.5-11.1); MONO % 7.4 % (3.8-10.2); NEUT % 60.4 % (42.8-82.8); PLATELET COUNT 265 10^3/uL (134-434); RBC 5.33 M/mm3 (3.60-5.2); RDW 14.9 % (11.6-15.6); WHITE BLOOD COUNT 7.4 K/mm3 (4.0-10.0)
[2022-09-20 16:11] LABS: POTASSIUM 3.7 mmol/L (3.5-5.1)
[2022-09-20 16:13] LABS: ALBUMIN 3.7 g/dl (3.4-5.0); BLOOD UREA NITROGEN 13.3 mg/dL (7-18); CALCIUM 9.2 mg/dL (8.5-10.1)
[2022-09-20 16:14] LABS: MAGNESIUM 2.6 mg/dL (1.8-2.4)
[2022-09-20 16:16] LABS: CREATININE 0.8 mg/dL (0.55-1.3)
[2022-09-20 16:18] LABS: BILIRUBIN,TOTAL 0.4 mg/dL (0.2-1); TOT PROT 7.5 g/dl (6.4-8.2)
[2022-09-20 16:58] VITALS: BP 129/93; PULSE 79; RESP 18; TEMP 97.7
[2022-09-22 08:11] LABS: FOLLICLE STIMULATING HORMONE 1.7 mIU/mL (.); LUTEINIZING HORMONE 0.5 mIU/mL (.)
== END 2022-09-20 16:00 | disposition home or self-care (01) ==
LOC: JONCCHEMO 15:11 → J7W 15:14 → JONCCHEMO 16:00
PROVIDERS: ATTEND Internal Medicine Hematology & Oncology
PROC: 3E013GC Introduction of Other Therapeutic Substance into Subcutaneous Tissue, Percutaneous Approach (ICD-10-PCS; principal; 2022-09-20)
DX: Z51.11 Encounter for antineoplastic chemotherapy (principal); C50.812 Malignant neoplasm of overlapping sites of left female breast; Z17.0 Estrogen receptor positive status [ER+]
CPT/HCPCS: 36415; 80053; 82306; 82670; 83001; 83002; 83735; 84703; 85025; 96372; J9202

== ENCOUNTER 2022-10-18 10:46 | Day surgery (SDC) | payer OTHER ==
[2022-10-18 11:32] LABS: BASO % 0.9 % (0-2.0); EOS % 4.8 % (0-4.5); HEMATOCRIT 45.4 % (32.4-45.2); HEMOGLOBIN 15.3 GM/dL (10.7-15.3); LYMPH % 32.2 % (8-40); MCH 26.8 pg (25.7-33.7); MCHC 33.7 g/dl (32.0-36.0); MEAN CELL VOLUME 79.5 fl (80-96); MEAN PLT VOLUME 7.6 fl (7.5-11.1); MONO % 6.5 % (3.8-10.2); NEUT % 55.6 % (42.8-82.8); PLATELET COUNT 279 10^3/uL (134-434); RBC 5.71 M/mm3 (3.60-5.2); RDW 14.5 % (11.6-15.6)
[2022-10-18 11:53] LABS: POTASSIUM 3.9 mmol/L (3.5-5.1)
[2022-10-18 11:55] LABS: ALBUMIN 3.8 g/dl (3.4-5.0); BLOOD UREA NITROGEN 11.5 mg/dL (7-18); CALCIUM 9.7 mg/dL (8.5-10.1); MAGNESIUM 2.4 mg/dL (1.8-2.4)
[2022-10-18 11:58] LABS: CREATININE 0.8 mg/dL (0.55-1.3)
[2022-10-18 12:00] LABS: BILIRUBIN,TOTAL 0.6 mg/dL (0.2-1)
[2022-10-18 16:09] VITALS: BP 121/83; PULSE 81; RESP 20; TEMP 98.5
[2022-10-19 08:08] LABS: FOLLICLE STIMULATING HORMONE 3.6 mIU/mL (.); LUTEINIZING HORMONE < 0.3 mIU/mL (.)
== END 2022-10-18 12:20 | disposition home or self-care (01) ==
LOC: JONCCHEMO 10:46 → J7W 10:46 → JONCCHEMO 12:20
PROVIDERS: ATTEND Internal Medicine Hematology & Oncology
DX: Z51.11 Encounter for antineoplastic chemotherapy (principal); C50.812 Malignant neoplasm of overlapping sites of left female breast
CPT/HCPCS: 36415; 80053; 82306; 82670; 83001; 83002; 83735; 84703; 85025; 96402; J9202

== ENCOUNTER 2022-11-15 10:50 | Day surgery (SDC) | payer OTHER ==
[2022-11-15 11:51] LABS: BASO % 0.7 % (0-2.0); EOS % 3.7 % (0-4.5); HEMATOCRIT 44.8 % (32.4-45.2); HEMOGLOBIN 15.4 GM/dL (10.7-15.3); LYMPH % 31.7 % (8-40); MCH 27.6 pg (25.7-33.7); MCHC 34.4 g/dl (32.0-36.0); MEAN CELL VOLUME 80.3 fl (80-96); MEAN PLT VOLUME 7.9 fl (7.5-11.1); MONO % 7.5 % (3.8-10.2); NEUT % 56.4 % (42.8-82.8); PLATELET COUNT 285 10^3/uL (134-434); RBC 5.57 M/mm3 (3.60-5.2); RDW 14.8 % (11.6-15.6); WHITE BLOOD COUNT 6.5 K/mm3 (4.0-10.0)
[2022-11-15 12:09] LABS: POTASSIUM 3.7 mmol/L (3.5-5.1)
[2022-11-15 12:11] LABS: CALCIUM 9.3 mg/dL (8.5-10.1)
[2022-11-15 12:12] LABS: MAGNESIUM 2.5 mg/dL (1.8-2.4)
[2022-11-15 12:13] LABS: BLOOD UREA NITROGEN 11.9 mg/dL (7-18)
[2022-11-15 12:16] LABS: BILIRUBIN,TOTAL 0.6 mg/dL (0.2-1); CREATININE 0.9 mg/dL (0.55-1.3)
[2022-11-15 17:15] VITALS: BP 136/87; PULSE 65; RESP 18; TEMP 98.3
[2022-11-16 08:09] LABS: FOLLICLE STIMULATING HORMONE 8.6 mIU/mL (.); LUTEINIZING HORMONE < 0.3 mIU/mL (.)
== END 2022-11-15 12:30 | disposition home or self-care (01) ==
LOC: JONCCHEMO 10:50 → J7W 10:52 → JONCCHEMO 12:30
PROVIDERS: ATTEND Internal Medicine Hematology & Oncology
DX: Z51.11 Encounter for antineoplastic chemotherapy (principal); C50.812 Malignant neoplasm of overlapping sites of left female breast
CPT/HCPCS: 36415; 80053; 82306; 82670; 83001; 83002; 83735; 84703; 85025; 96402; J9202

== ENCOUNTER 2022-12-13 10:34 | Day surgery (SDC) | payer OTHER ==
[2022-12-13 11:40] LABS: BASO % 0.7 % (0-2.0); EOS % 4.3 % (0-4.5); HEMATOCRIT 46.8 % (32.4-45.2); HEMOGLOBIN 15.8 GM/dL (10.7-15.3); LYMPH % 34.8 % (8-40); MCH 27.3 pg (25.7-33.7); MCHC 33.7 g/dl (32.0-36.0); MEAN CELL VOLUME 80.8 fl (80-96); MEAN PLT VOLUME 7.9 fl (7.5-11.1); MONO % 6.5 % (3.8-10.2); NEUT % 53.7 % (42.8-82.8); PLATELET COUNT 289 10^3/uL (134-434); RBC 5.79 M/mm3 (3.60-5.2); RDW 14.7 % (11.6-15.6); WHITE BLOOD COUNT 6.2 K/mm3 (4.0-10.0)
[2022-12-13 12:13] LABS: POTASSIUM 3.7 mmol/L (3.5-5.1)
[2022-12-13 12:15] LABS: CALCIUM 9.4 mg/dL (8.5-10.1)
[2022-12-13 12:16] LABS: BLOOD UREA NITROGEN 14.5 mg/dL (7-18); MAGNESIUM 2.4 mg/dL (1.8-2.4)
[2022-12-13 12:20] LABS: BILIRUBIN,TOTAL 0.7 mg/dL (0.2-1); CREATININE 0.7 mg/dL (0.55-1.3)
[2022-12-13 12:22] LABS: TOT PROT 7.9 g/dl (6.4-8.2)
[2022-12-13 13:49] VITALS: BP 130/93; PULSE 73; RESP 20; TEMP 98.1
[2022-12-15 08:06] LABS: FOLLICLE STIMULATING HORMONE 3.8 mIU/mL (.); LUTEINIZING HORMONE < 0.3 mIU/mL (.)
== END 2022-12-13 12:00 | disposition home or self-care (01) ==
LOC: JONCCHEMO 10:34 → J7W 10:35 → JONCCHEMO 12:00
PROVIDERS: ATTEND Internal Medicine Hematology & Oncology
DX: Z51.11 Encounter for antineoplastic chemotherapy (principal); C50.812 Malignant neoplasm of overlapping sites of left female breast
CPT/HCPCS: 36415; 80053; 82306; 82670; 83001; 83002; 83735; 84703; 85025; 96402; J9202

== ENCOUNTER 2023-01-10 11:08 | Day surgery (SDC) | payer OTHER ==
[2023-01-10 11:47] LABS: BASO % 0.9 % (0-2.0); EOS % 4.5 % (0-4.5); HEMOGLOBIN 15.6 GM/dL (10.7-15.3); LYMPH % 31.2 % (8-40); MCH 27.1 pg (25.7-33.7); MCHC 33.3 g/dl (32.0-36.0); MEAN CELL VOLUME 81.5 fl (80-96); MEAN PLT VOLUME 8.2 fl (7.5-11.1); MONO % 5.9 % (3.8-10.2); NEUT % 57.5 % (42.8-82.8); PLATELET COUNT 272 10^3/uL (134-434); RBC 5.76 M/mm3 (3.60-5.2); RDW 13.8 % (11.6-15.6)
[2023-01-10 12:04] LABS: POTASSIUM 3.7 mmol/L (3.5-5.1)
[2023-01-10 12:06] LABS: BLOOD UREA NITROGEN 10.2 mg/dL (7-18); CALCIUM 9.7 mg/dL (8.5-10.1); MAGNESIUM 2.3 mg/dL (1.8-2.4)
[2023-01-10 12:07] LABS: ALBUMIN 3.8 g/dl (3.4-5.0)
[2023-01-10 12:09] LABS: BILIRUBIN,DIRECT 0.1 mg/dL (0.0-0.2); CREATININE 0.8 mg/dL (0.55-1.3)
[2023-01-10 12:11] LABS: BILIRUBIN,TOTAL 0.4 mg/dL (0.2-1)
[2023-01-10 12:55] VITALS: BP 142/92; PULSE 84; RESP 18; TEMP 98.8
[2023-01-12 08:07] LABS: LUTEINIZING HORMONE 0.4 mIU/mL (.)
== END 2023-01-10 12:15 | disposition home or self-care (01) ==
LOC: JONCCHEMO 11:08 → J7W 11:14 → JONCCHEMO 12:15
PROVIDERS: ATTEND Internal Medicine Hematology & Oncology
DX: Z51.11 Encounter for antineoplastic chemotherapy (principal); C50.812 Malignant neoplasm of overlapping sites of left female breast
CPT/HCPCS: 36415; 80048; 80076; 82306; 82670; 83001; 83002; 83735; 84703; 85025; 96402; J9202

== ENCOUNTER 2023-02-14 10:31 | Day surgery (SDC) | payer OTHER ==
[2023-02-14 11:22] LABS: BASO % 0.8 % (0-2.0); EOS % 5.1 % (0-4.5); HEMATOCRIT 45.6 % (32.4-45.2); HEMOGLOBIN 15.2 GM/dL (10.7-15.3); LYMPH % 32.6 % (8-40); MCH 27.2 pg (25.7-33.7); MCHC 33.4 g/dl (32.0-36.0); MEAN CELL VOLUME 81.4 fl (80-96); MEAN PLT VOLUME 7.8 fl (7.5-11.1); MONO % 5.8 % (3.8-10.2); NEUT % 55.7 % (42.8-82.8); PLATELET COUNT 285 10^3/uL (134-434); RDW 14.3 % (11.6-15.6); WHITE BLOOD COUNT 6.4 K/mm3 (4.0-10.0)
[2023-02-14 11:39] LABS: POTASSIUM 3.6 mmol/L (3.5-5.1)
[2023-02-14 11:41] LABS: ALBUMIN 3.7 g/dl (3.4-5.0); MAGNESIUM 2.3 mg/dL (1.8-2.4)
[2023-02-14 11:42] LABS: BLOOD UREA NITROGEN 12.2 mg/dL (7-18)
[2023-02-14 11:44] LABS: CREATININE 0.8 mg/dL (0.55-1.3)
[2023-02-14 11:46] LABS: BILIRUBIN,TOTAL 0.5 mg/dL (0.2-1); TOT PROT 7.7 g/dl (6.4-8.2)
[2023-02-14 12:51] VITALS: BP 133/88; PULSE 89; RESP 20; TEMP 98.5
[2023-02-15 08:06] LABS: LUTEINIZING HORMONE < 0.3 mIU/mL (.)
== END 2023-02-14 11:25 | disposition home or self-care (01) ==
LOC: J7W 10:31 → JONCCHEMO 10:31
PROVIDERS: ATTEND Internal Medicine Hematology & Oncology
DX: Z51.11 Encounter for antineoplastic chemotherapy (principal); C50.812 Malignant neoplasm of overlapping sites of left female breast
CPT/HCPCS: 36415; 80053; 82306; 82670; 83001; 83002; 83735; 85025; 96402; J9202

== ENCOUNTER 2023-03-14 10:14 | Day surgery (SDC) | payer OTHER ==
[2023-03-14 10:40] LABS: EOS % 4.8 % (0-4.5); HEMATOCRIT 45.3 % (32.4-45.2); HEMOGLOBIN 15.4 GM/dL (10.7-15.3); LYMPH % 30.2 % (8-40); MCH 27.6 pg (25.7-33.7); MCHC 34.1 g/dl (32.0-36.0); MEAN PLT VOLUME 7.5 fl (7.5-11.1); MONO % 6.4 % (3.8-10.2); NEUT % 57.6 % (42.8-82.8); PLATELET COUNT 294 10^3/uL (134-434); RDW 14.2 % (11.6-15.6); WHITE BLOOD COUNT 7.8 K/mm3 (4.0-10.0)
[2023-03-14 11:02] LABS: POTASSIUM 3.6 mmol/L (3.5-5.1)
[2023-03-14 11:03] LABS: CALCIUM 9.6 mg/dL (8.5-10.1)
[2023-03-14 11:04] LABS: BLOOD UREA NITROGEN 12.6 mg/dL (7-18); MAGNESIUM 2.6 mg/dL (1.8-2.4)
[2023-03-14 11:08] LABS: CREATININE 0.8 mg/dL (0.55-1.3)
[2023-03-14 11:09] LABS: BILIRUBIN,TOTAL 0.8 mg/dL (0.2-1); TOT PROT 7.9 g/dl (6.4-8.2)
[2023-03-14] MEDS: GOSERELIN ACETATE 3.6 MG IMPLANT SYRINGE SQ ONE (11:24)
[2023-03-14] MEDS: LIDOCAINE HCL 1%, 10 MG/ML (20ML VIAL) ID ONE (11:25)
[2023-03-14 14:51] VITALS: BP 135/85; PULSE 75; RESP 18; TEMP 97.8
[2023-03-16 17:07] LABS: FOLLICLE STIMULATING HORMONE 3.9 mIU/mL (.); LUTEINIZING HORMONE < 0.3 mIU/mL (.)
== END 2023-03-14 12:00 | disposition home or self-care (01) ==
LOC: J7W 10:14 → JONCCHEMO 10:14
PROVIDERS: ATTEND Internal Medicine Hematology & Oncology
DX: Z51.11 Encounter for antineoplastic chemotherapy (principal); C50.812 Malignant neoplasm of overlapping sites of left female breast; Z17.0 Estrogen receptor positive status [ER+]
CPT/HCPCS: 36415; 80053; 82306; 82670; 83001; 83002; 83735; 84703; 85025; 96402; J9202

== ENCOUNTER 2023-04-11 13:30 | Day surgery (SDC) | payer OTHER ==
[2023-04-11 14:12] LABS: BASO % 1.2 % (0-2.0); EOS % 5.9 % (0-4.5); HEMATOCRIT 44.5 % (32.4-45.2); HEMOGLOBIN 14.7 GM/dL (10.7-15.3); LYMPH % 27.7 % (8-40); MEAN CELL VOLUME 81.8 fl (80-96); MEAN PLT VOLUME 7.8 fl (7.5-11.1); MONO % 5.7 % (3.8-10.2); NEUT % 59.5 % (42.8-82.8); PLATELET COUNT 279 10^3/uL (134-434); RBC 5.44 M/mm3 (3.60-5.2); RDW 14.3 % (11.6-15.6); WHITE BLOOD COUNT 7.9 K/mm3 (4.0-10.0)
[2023-04-11 14:36] LABS: POTASSIUM 3.3 mmol/L (3.5-5.1)
[2023-04-11 14:38] LABS: CALCIUM 9.5 mg/dL (8.5-10.1)
[2023-04-11 14:39] LABS: ALBUMIN 3.7 g/dl (3.4-5.0); BLOOD UREA NITROGEN 11.9 mg/dL (7-18); MAGNESIUM 2.3 mg/dL (1.8-2.4)
[2023-04-11 14:42] LABS: CREATININE 0.8 mg/dL (0.55-1.3)
[2023-04-11 14:43] LABS: BILIRUBIN,TOTAL 0.5 mg/dL (0.2-1); TOT PROT 7.9 g/dl (6.4-8.2)
[2023-04-11] MEDS: LIDOCAINE HCL 1%, 10 MG/ML (20ML VIAL) ID ONE (15:25)
[2023-04-11] MEDS: POTASSIUM CHLORIDE TABS 20 MEQ TABLET.ER (FP) PO ONE (15:33)
[2023-04-11] MEDS: GOSERELIN ACETATE 3.6 MG IMPLANT SYRINGE SQ ONE (15:40)
[2023-04-11 19:02] VITALS: BP 128/73; PULSE 81; RESP 18; TEMP 98.2
[2023-04-13 08:06] LABS: FOLLICLE STIMULATING HORMONE 3.6 mIU/mL (.); LUTEINIZING HORMONE < 0.3 mIU/mL (.)
== END 2023-04-11 15:55 | disposition home or self-care (01) ==
LOC: J7W 13:30 → JONCCHEMO 13:30
PROVIDERS: ATTEND Internal Medicine Hematology & Oncology
DX: Z51.11 Encounter for antineoplastic chemotherapy (principal); C50.812 Malignant neoplasm of overlapping sites of left female breast; Z17.0 Estrogen receptor positive status [ER+]
CPT/HCPCS: 36415; 80053; 82306; 82670; 83001; 83002; 83735; 84703; 85025; 96402; J9202

== ENCOUNTER 2023-05-09 13:32 | Day surgery (SDC) | payer OTHER ==
[2023-05-09 14:01] LABS: BASO % 1.2 % (0-2.0); EOS % 6.8 % (0-4.5); HEMATOCRIT 44.8 % (32.4-45.2); HEMOGLOBIN 14.5 GM/dL (10.7-15.3); LYMPH % 28.4 % (8-40); MCH 26.5 pg (25.7-33.7); MCHC 32.4 g/dl (32.0-36.0); MEAN CELL VOLUME 81.9 fl (80-96); MEAN PLT VOLUME 7.8 fl (7.5-11.1); MONO % 7.3 % (3.8-10.2); NEUT % 56.3 % (42.8-82.8); PLATELET COUNT 268 10^3/uL (134-434); RBC 5.47 M/mm3 (3.60-5.2); RDW 14.5 % (11.6-15.6); WHITE BLOOD COUNT 7.4 K/mm3 (4.0-10.0)
[2023-05-09] MEDS: LIDOCAINE HCL 1%, 10 MG/ML (20ML VIAL) ID ONE (14:31)
[2023-05-09] MEDS: GOSERELIN ACETATE 3.6 MG IMPLANT SYRINGE SQ ONE (14:31)
[2023-05-09 14:35] LABS: POTASSIUM 3.6 mmol/L (3.5-5.1)
[2023-05-09 14:37] LABS: ALBUMIN 3.7 g/dl (3.4-5.0); CALCIUM 9.5 mg/dL (8.5-10.1); MAGNESIUM 2.2 mg/dL (1.8-2.4)
[2023-05-09 14:41] LABS: CREATININE 0.8 mg/dL (0.55-1.3)
[2023-05-09 14:42] LABS: BILIRUBIN,TOTAL 0.5 mg/dL (0.2-1); TOT PROT 7.5 g/dl (6.4-8.2)
[2023-05-09 17:03] VITALS: BP 141/79; PULSE 87; RESP 18; TEMP 97.8
[2023-05-10 08:09] LABS: FOLLICLE STIMULATING HORMONE 3.8 mIU/mL (.); LUTEINIZING HORMONE < 0.3 mIU/mL (.)
== END 2023-05-09 15:00 | disposition home or self-care (01) ==
LOC: J7W 13:32 → JONCCHEMO 13:32
PROVIDERS: ATTEND Internal Medicine Hematology & Oncology
DX: Z51.11 Encounter for antineoplastic chemotherapy (principal); C50.812 Malignant neoplasm of overlapping sites of left female breast; Z17.0 Estrogen receptor positive status [ER+]
CPT/HCPCS: 36415; 80053; 82306; 82670; 83001; 83002; 83735; 84703; 85025; 96402; J9202

== ENCOUNTER 2023-06-06 15:20 | Day surgery (SDC) | payer OTHER ==
[2023-06-06 14:24] LABS: BASO % 0.9 % (0-2.0); EOS % 6.6 % (0-4.5); HEMATOCRIT 46.4 % (32.4-45.2); HEMOGLOBIN 15.3 GM/dL (10.7-15.3); LYMPH % 28.7 % (8-40); MCH 27.3 pg (25.7-33.7); MEAN CELL VOLUME 82.7 fl (80-96); MEAN PLT VOLUME 7.9 fl (7.5-11.1); MONO % 6.2 % (3.8-10.2); NEUT % 57.6 % (42.8-82.8); PLATELET COUNT 284 10^3/uL (134-434); RBC 5.61 M/mm3 (3.60-5.2); RDW 14.7 % (11.6-15.6); WHITE BLOOD COUNT 7.4 K/mm3 (4.0-10.0)
[2023-06-06 14:44] LABS: POTASSIUM 4.1 mmol/L (3.5-5.1)
[2023-06-06 14:46] LABS: ALBUMIN 3.8 g/dl (3.4-5.0); BLOOD UREA NITROGEN 14.5 mg/dL (7-18); CALCIUM 9.9 mg/dL (8.5-10.1); MAGNESIUM 2.6 mg/dL (1.8-2.4)
[2023-06-06 14:49] LABS: CREATININE 0.9 mg/dL (0.55-1.3)
[2023-06-06 14:51] LABS: BILIRUBIN,TOTAL 0.4 mg/dL (0.2-1)
[2023-06-06 14:57] LABS: TOT PROT 7.8 g/dl (6.4-8.2)
[2023-06-06] MEDS: LIDOCAINE HCL 1%, 10 MG/ML (20ML VIAL) ID ONE (15:27)
[2023-06-06] MEDS: GOSERELIN ACETATE 3.6 MG IMPLANT SYRINGE SQ ONE (15:28)
[2023-06-06 15:59] VITALS: BP 119/75; PULSE 77; RESP 18; TEMP 98.3
[2023-06-07 11:09] LABS: LUTEINIZING HORMONE < 0.3 mIU/mL (.)
== END 2023-06-06 16:05 | disposition home or self-care (01) ==
LOC: JONCCHEMO 15:20 → J7W 15:20 → JONCCHEMO 16:05
PROVIDERS: ATTEND Internal Medicine Hematology & Oncology
DX: Z51.11 Encounter for antineoplastic chemotherapy (principal); C50.812 Malignant neoplasm of overlapping sites of left female breast; Z17.0 Estrogen receptor positive status [ER+]
CPT/HCPCS: 36415; 80053; 82306; 82670; 83001; 83002; 83735; 84703; 85025; 96402; J9202

== ENCOUNTER 2023-07-11 13:12 | Day surgery (SDC) | payer OTHER ==
[2023-07-11 13:39] LABS: BASO % 0.7 % (0-2.0); EOS % 4.6 % (0-4.5); HEMATOCRIT 44.8 % (32.4-45.2); HEMOGLOBIN 15.3 GM/dL (10.7-15.3); LYMPH % 29.6 % (8-40); MCH 27.7 pg (25.7-33.7); MCHC 34.1 g/dl (32.0-36.0); MEAN CELL VOLUME 81.2 fl (80-96); MEAN PLT VOLUME 7.8 fl (7.5-11.1); MONO % 4.6 % (3.8-10.2); NEUT % 60.5 % (42.8-82.8); PLATELET COUNT 283 10^3/uL (134-434); RBC 5.51 M/mm3 (3.60-5.2); RDW 14.8 % (11.6-15.6); WHITE BLOOD COUNT 7.7 K/mm3 (4.0-10.0)
[2023-07-11] MEDS: GOSERELIN ACETATE 3.6 MG IMPLANT SYRINGE SQ ONE (14:00)
[2023-07-11] MEDS: LIDOCAINE HCL 1%, 10 MG/ML (20ML VIAL) ID ONE (14:01)
[2023-07-11 14:08] LABS: CHLORIDE 103 mmol/L (98-107); POTASSIUM 3.6 mmol/L (3.5-5.1); SODIUM 139 mmol/L (136-145)
[2023-07-11 14:10] LABS: ALBUMIN 3.9 g/dl (3.4-5.0); ANION GAP 5 mmol/L (4-13); CALCIUM 9.8 mg/dL (8.5-10.1); CO2 31 mmol/L (21-32); GLUCOSE,RANDOM 156 mg/dL (74-106); MAGNESIUM 2.2 mg/dL (1.8-2.4)
[2023-07-11 14:13] LABS: CREATININE 0.9 mg/dL (0.55-1.3); SGOT/AST 21 U/L (15-37); SGPT/ALT 48 U/L (13-61)
[2023-07-11 14:15] LABS: BILIRUBIN,TOTAL 0.7 mg/dL (0.2-1); TOT PROT 7.9 g/dl (6.4-8.2)
[2023-07-11 14:16] LABS: ALK PHOS 143 U/L (45-117)
[2023-07-11 14:53] LABS: GAMMA GLUTAMYL TRANSPEPTIDASE 147 U/L (5-85)
[2023-07-11 16:54] VITALS: BP 138/93; PULSE 96; RESP 20; TEMP 98.4
[2023-07-12 10:09] LABS: FOLLICLE STIMULATING HORMONE 3.7 mIU/mL (.); LUTEINIZING HORMONE < 0.3 mIU/mL (.)
== END 2023-07-11 14:15 | disposition home or self-care (01) ==
LOC: JONCCHEMO 13:12 → J7W 13:13 → JONCCHEMO 14:15
PROVIDERS: ATTEND Internal Medicine Hematology & Oncology
DX: Z51.11 Encounter for antineoplastic chemotherapy (principal); C50.812 Malignant neoplasm of overlapping sites of left female breast; Z17.0 Estrogen receptor positive status [ER+]
CPT/HCPCS: 36415; 80053; 82306; 82670; 82977; 83001; 83002; 83735; 84703; 85025; 96402; J9202

== ENCOUNTER 2023-08-08 14:05 | Day surgery (SDC) | payer OTHER ==
[2023-08-08 15:08] LABS: BASO % 0.4 % (0-2.0); EOS % 3.8 % (0-4.5); HEMATOCRIT 45.5 % (32.4-45.2); HEMOGLOBIN 15.3 GM/dL (10.7-15.3); LYMPH % 28.6 % (8-40); MCH 27.2 pg (25.7-33.7); MCHC 33.6 g/dl (32.0-36.0); MEAN PLT VOLUME 8.1 fl (7.5-11.1); NEUT % 60.2 % (42.8-82.8); PLATELET COUNT 271 10^3/uL (134-434); RBC 5.61 M/mm3 (3.60-5.2); RDW 14.7 % (11.6-15.6)
[2023-08-08] MEDS: GOSERELIN ACETATE 3.6 MG IMPLANT SYRINGE SQ ONE (15:19)
[2023-08-08] MEDS: LIDOCAINE HCL 1%, 10 MG/ML (20ML VIAL) ID ONE (15:19)
[2023-08-08 15:29] LABS: POTASSIUM 3.4 mmol/L (3.5-5.1)
[2023-08-08 15:31] LABS: CALCIUM 9.8 mg/dL (8.5-10.1); MAGNESIUM 2.2 mg/dL (1.8-2.4)
[2023-08-08 15:32] LABS: BLOOD UREA NITROGEN 14.4 mg/dL (7-18)
[2023-08-08 15:34] LABS: CREATININE 0.8 mg/dL (0.55-1.3)
[2023-08-08 15:36] LABS: BILIRUBIN,TOTAL 0.5 mg/dL (0.2-1)
[2023-08-08 16:47] VITALS: BP 128/95; PULSE 83; RESP 20; TEMP 98.5
[2023-08-10 08:11] LABS: FOLLICLE STIMULATING HORMONE 3.8 mIU/mL (.); LUTEINIZING HORMONE < 0.3 mIU/mL (.)
== END 2023-08-08 15:25 | disposition home or self-care (01) ==
LOC: JONCCHEMO 14:05 → J7W 14:08 → JONCCHEMO 15:25
PROVIDERS: ATTEND Internal Medicine Hematology & Oncology
DX: Z51.11 Encounter for antineoplastic chemotherapy (principal); C50.812 Malignant neoplasm of overlapping sites of left female breast
CPT/HCPCS: 36415; 80053; 82306; 82670; 83001; 83002; 83735; 84703; 85025; 96402; J9202

== ENCOUNTER 2023-09-05 14:29 | Day surgery (SDC) | payer OTHER ==
[2023-09-05] MEDS: LIDOCAINE HCL 1%, 10 MG/ML (20ML VIAL) ID ONE (15:37)
[2023-09-05] MEDS: GOSERELIN ACETATE 3.6 MG IMPLANT SYRINGE SQ ONE (15:37)
[2023-09-05 15:54] VITALS: BP 127/85; PULSE 70; RESP 20; TEMP 98.9
[2023-09-05 16:19] LABS: BASO % 0.9 % (0-2.0); EOS % 4.9 % (0-4.5); HEMATOCRIT 44.5 % (32.4-45.2); LYMPH % 31.3 % (8-40); MCH 27.4 pg (25.7-33.7); MCHC 33.6 g/dl (32.0-36.0); MEAN CELL VOLUME 81.6 fl (80-96); MEAN PLT VOLUME 8.1 fl (7.5-11.1); MONO % 6.7 % (3.8-10.2); NEUT % 56.2 % (42.8-82.8); PLATELET COUNT 275 10^3/uL (134-434); RBC 5.46 M/mm3 (3.60-5.2); RDW 14.5 % (11.6-15.6); WHITE BLOOD COUNT 7.4 K/mm3 (4.0-10.0)
[2023-09-05 16:40] LABS: POTASSIUM 3.7 mmol/L (3.5-5.1)
[2023-09-05 16:43] LABS: CALCIUM 9.2 mg/dL (8.5-10.1)
[2023-09-05 16:44] LABS: BLOOD UREA NITROGEN 13.6 mg/dL (7-18); MAGNESIUM 2.3 mg/dL (1.8-2.4)
[2023-09-05 16:46] LABS: CREATININE 0.7 mg/dL (0.55-1.3)
[2023-09-05 16:48] LABS: BILIRUBIN,TOTAL 0.6 mg/dL (0.2-1); TOT PROT 8.1 g/dl (6.4-8.2)
[2023-09-06 08:11] LABS: FOLLICLE STIMULATING HORMONE 3.9 mIU/mL (.); LUTEINIZING HORMONE < 0.3 mIU/mL (.)
== END 2023-09-05 15:50 | disposition home or self-care (01) ==
LOC: JONCCHEMO 14:29 → J7W 14:30 → JONCCHEMO 15:50
PROVIDERS: ATTEND Internal Medicine Hematology & Oncology
DX: Z51.11 Encounter for antineoplastic chemotherapy (principal); C50.912 Malignant neoplasm of unspecified site of left female breast
CPT/HCPCS: 36415; 80053; 82306; 82670; 83001; 83002; 83735; 84703; 85025; 96402; J9202

== ENCOUNTER 2023-10-03 13:58 | Day surgery (SDC) | payer OTHER ==
[2023-10-03 14:45] LABS: BASO % 0.9 % (0-2.0); EOS % 4.6 % (0-4.5); HEMATOCRIT 44.2 % (32.4-45.2); HEMOGLOBIN 14.6 GM/dL (10.7-15.3); LYMPH % 30.1 % (8-40); MCH 27.2 pg (25.7-33.7); MCHC 33.1 g/dl (32.0-36.0); MEAN CELL VOLUME 82.2 fl (80-96); MONO % 6.4 % (3.8-10.2); PLATELET COUNT 252 10^3/uL (134-434); RBC 5.38 M/mm3 (3.60-5.2); RDW 14.7 % (11.6-15.6); WHITE BLOOD COUNT 7.1 K/mm3 (4.0-10.0)
[2023-10-03 15:04] LABS: CHLORIDE 103 mmol/L (98-107); POTASSIUM 3.5 mmol/L (3.5-5.1); SODIUM 140 mmol/L (136-145)
[2023-10-03 15:05] LABS: CALCIUM 9.5 mg/dL (8.5-10.1)
[2023-10-03 15:06] LABS: ALBUMIN 3.7 g/dl (3.4-5.0); ANION GAP 6 mmol/L (4-13); BLOOD UREA NITROGEN 10.9 mg/dL (7-18); CO2 31 mmol/L (21-32); GLUCOSE,RANDOM 110 mg/dL (74-106); MAGNESIUM 2.4 mg/dL (1.8-2.4)
[2023-10-03 15:09] LABS: CREATININE 0.8 mg/dL (0.55-1.3); SGOT/AST 24 U/L (15-37); SGPT/ALT 47 U/L (13-61)
[2023-10-03 15:11] LABS: BILIRUBIN,TOTAL 0.5 mg/dL (0.2-1); TOT PROT 7.6 g/dl (6.4-8.2)
[2023-10-03 15:12] LABS: ALK PHOS 123 U/L (45-117)
[2023-10-03] MEDS: GOSERELIN ACETATE 3.6 MG IMPLANT SYRINGE SQ ONE (15:41)
[2023-10-03] MEDS: LIDOCAINE HCL 1%, 10 MG/ML (20ML VIAL) ID ONE (15:43)
[2023-10-03 16:59] VITALS: BP 129/89; PULSE 75; RESP 18; TEMP 98.9
[2023-10-04 08:10] LABS: FOLLICLE STIMULATING HORMONE 3.3 mIU/mL (.); LUTEINIZING HORMONE 0.3 mIU/mL (.)
== END 2023-10-03 16:00 | disposition home or self-care (01) ==
LOC: J7W 13:58 → JONCCHEMO 13:58
PROVIDERS: ATTEND Internal Medicine Hematology & Oncology
DX: Z51.11 Encounter for antineoplastic chemotherapy (principal); C50.912 Malignant neoplasm of unspecified site of left female breast
CPT/HCPCS: 36415; 80053; 82306; 82670; 83001; 83002; 83516; 83735; 84080; 84703; 85025; 96402; J9202

== ENCOUNTER 2023-10-31 13:56 | Day surgery (SDC) | payer OTHER ==
[2023-10-31 14:28] LABS: BASO % 0.7 % (0-2.0); EOS % 3.6 % (0-4.5); HEMATOCRIT 46.4 % (32.4-45.2); HEMOGLOBIN 15.2 GM/dL (10.7-15.3); LYMPH % 30.3 % (8-40); MCH 26.9 pg (25.7-33.7); MCHC 32.8 g/dl (32.0-36.0); MEAN CELL VOLUME 82.2 fl (80-96); MEAN PLT VOLUME 7.8 fl (7.5-11.1); MONO % 6.8 % (3.8-10.2); NEUT % 58.6 % (42.8-82.8); PLATELET COUNT 283 10^3/uL (134-434); RBC 5.65 M/mm3 (3.60-5.2); RDW 14.5 % (11.6-15.6); WHITE BLOOD COUNT 7.6 K/mm3 (4.0-10.0)
[2023-10-31] MEDS: GOSERELIN ACETATE 3.6 MG IMPLANT SYRINGE SQ ONE (15:06)
[2023-10-31] MEDS: LIDOCAINE HCL 1%, 10 MG/ML (20ML VIAL) ID ONE (15:06)
[2023-10-31 15:10] LABS: CHLORIDE 104 mmol/L (98-107); POTASSIUM 3.7 mmol/L (3.5-5.1); SODIUM 142 mmol/L (136-145)
[2023-10-31 15:12] LABS: ANION GAP 5 mmol/L (4-13); CO2 34 mmol/L (21-32)
[2023-10-31 15:14] LABS: ALBUMIN 4.2 g/dl (3.4-5.0); GLUCOSE,RANDOM 102 mg/dL (74-106); MAGNESIUM 2.3 mg/dL (1.8-2.4)
[2023-10-31 15:15] LABS: CREATININE 0.8 mg/dL (0.55-1.3); SGPT/ALT 44 U/L (13-61)
[2023-10-31 15:17] LABS: BILIRUBIN,TOTAL 0.5 mg/dL (0.2-1); SGOT/AST 21 U/L (15-37); TOT PROT 8.1 g/dl (6.4-8.2)
[2023-10-31 15:18] LABS: ALK PHOS 123 U/L (45-117)
[2023-10-31 16:52] VITALS: BP 137/86; PULSE 71; RESP 18; TEMP 98.4
[2023-11-02 08:14] LABS: FOLLICLE STIMULATING HORMONE 4.1 mIU/mL (.); LUTEINIZING HORMONE < 0.3 mIU/mL (.)
== END 2023-10-31 15:20 | disposition home or self-care (01) ==
LOC: JONCCHEMO 13:56 → J7W 13:57 → JONCCHEMO 15:20
PROVIDERS: ATTEND Internal Medicine Hematology & Oncology
DX: Z51.11 Encounter for antineoplastic chemotherapy (principal); C50.912 Malignant neoplasm of unspecified site of left female breast
CPT/HCPCS: 36415; 80053; 82306; 82670; 83001; 83002; 83735; 84703; 85025; 96402; J9202

== ENCOUNTER 2023-11-28 13:29 | Day surgery (SDC) | payer OTHER ==
[2023-11-28 14:43] LABS: BASO % 0.9 % (0-2.0); EOS % 4.2 % (0-4.5); HEMATOCRIT 45.3 % (32.4-45.2); HEMOGLOBIN 15.1 GM/dL (10.7-15.3); LYMPH % 34.1 % (8-40); MCH 27.1 pg (25.7-33.7); MCHC 33.3 g/dl (32.0-36.0); MEAN CELL VOLUME 81.6 fl (80-96); MEAN PLT VOLUME 8.2 fl (7.5-11.1); MONO % 6.8 % (3.8-10.2); PLATELET COUNT 272 10^3/uL (134-434); RBC 5.55 M/mm3 (3.60-5.2); RDW 14.6 % (11.6-15.6); WHITE BLOOD COUNT 6.6 K/mm3 (4.0-10.0)
[2023-11-28 15:05] LABS: CHLORIDE 103 mmol/L (98-107); POTASSIUM 3.8 mmol/L (3.5-5.1); SODIUM 140 mmol/L (136-145)
[2023-11-28 15:07] LABS: CALCIUM 9.7 mg/dL (8.5-10.1)
[2023-11-28 15:08] LABS: ALBUMIN 3.8 g/dl (3.4-5.0); ANION GAP 5 mmol/L (4-13); CO2 32 mmol/L (21-32); GLUCOSE,RANDOM 108 mg/dL (74-106); MAGNESIUM 2.2 mg/dL (1.8-2.4)
[2023-11-28 15:11] LABS: CREATININE 0.9 mg/dL (0.55-1.3); SGPT/ALT 45 U/L (13-61)
[2023-11-28 15:13] LABS: BILIRUBIN,TOTAL 0.6 mg/dL (0.2-1); TOT PROT 7.6 g/dl (6.4-8.2)
[2023-11-28 15:14] LABS: ALK PHOS 115 U/L (45-117)
[2023-11-28] MEDS: LIDOCAINE HCL 1%, 10 MG/ML (20ML VIAL) ID ONE (15:15)
[2023-11-28] MEDS: GOSERELIN ACETATE 3.6 MG IMPLANT SYRINGE SQ ONE (15:15)
[2023-11-28 15:22] LABS: SGOT/AST 20 U/L (15-37)
[2023-11-28 16:27] VITALS: BP 109/69; PULSE 75; RESP 18; TEMP 98.1
[2023-11-29 08:11] LABS: FOLLICLE STIMULATING HORMONE 3.5 mIU/mL (.); LUTEINIZING HORMONE < 0.3 mIU/mL (.)
== END 2023-11-28 15:40 | disposition home or self-care (01) ==
LOC: JONCCHEMO 13:29 → J7W 13:30 → JONCCHEMO 15:40
PROVIDERS: ATTEND Internal Medicine Hematology & Oncology
DX: Z51.11 Encounter for antineoplastic chemotherapy (principal); C50.912 Malignant neoplasm of unspecified site of left female breast
CPT/HCPCS: 36415; 80053; 82306; 82670; 83001; 83002; 83735; 84703; 85025; 96402; J9202

== ENCOUNTER 2024-01-30 10:29 | Day surgery (SDC) | payer OTHER ==
[2024-01-30] MEDS: GOSERELIN ACETATE 3.6 MG IMPLANT SYRINGE SQ ONE (10:30)
[2024-01-30] MEDS: LIDOCAINE HCL 1%, 10 MG/ML (20ML VIAL) ID ONE (10:34)
[2024-01-30 10:55] LABS: BASO % 0.7 % (0-2.0); EOS % 4.6 % (0-4.5); HEMATOCRIT 46.3 % (32.4-45.2); HEMOGLOBIN 15.4 GM/dL (10.7-15.3); LYMPH % 31.9 % (8-40); MCH 27.3 pg (25.7-33.7); MCHC 33.3 g/dl (32.0-36.0); MEAN CELL VOLUME 81.7 fl (80-96); MEAN PLT VOLUME 7.9 fl (7.5-11.1); MONO % 5.4 % (3.8-10.2); NEUT % 57.4 % (42.8-82.8); PLATELET COUNT 272 10^3/uL (134-434); RBC 5.66 M/mm3 (3.60-5.2); RDW 14.7 % (11.6-15.6); WHITE BLOOD COUNT 6.7 K/mm3 (4.0-10.0)
[2024-01-30 11:53] LABS: CHLORIDE 105 mmol/L (98-107); POTASSIUM 3.8 mmol/L (3.5-5.1); SODIUM 142 mmol/L (136-145)
[2024-01-30 11:59] LABS: ALBUMIN 3.9 g/dl (3.4-5.0); ANION GAP 5 mmol/L (4-13); BLOOD UREA NITROGEN 12.7 mg/dL (7-18); CO2 32 mmol/L (21-32); GLUCOSE,RANDOM 143 mg/dL (74-106); MAGNESIUM 2.3 mg/dL (1.8-2.4)
[2024-01-30 12:01] LABS: CREATININE 0.8 mg/dL (0.55-1.3); SGPT/ALT 44 U/L (13-61)
[2024-01-30 12:03] LABS: BILIRUBIN,TOTAL 0.6 mg/dL (0.2-1); SGOT/AST 17 U/L (15-37)
[2024-01-30 12:05] LABS: ALK PHOS 131 U/L (45-117)
[2024-01-30 16:49] VITALS: BP 121/85; PULSE 73; RESP 20; TEMP 97.8
[2024-01-31 11:07] LABS: FOLLICLE STIMULATING HORMONE 4.1 mIU/mL (.); LUTEINIZING HORMONE 0.3 mIU/mL (.)
== END 2024-01-30 10:45 | disposition home or self-care (01) ==
LOC: JONCBLOOD 10:29 → J7W 10:30 → JONCBLOOD 10:45
PROVIDERS: ATTEND Internal Medicine Hematology & Oncology
DX: Z51.11 Encounter for antineoplastic chemotherapy (principal); C50.919 Malignant neoplasm of unspecified site of unspecified female breast
CPT/HCPCS: 36415; 80053; 82306; 82670; 83001; 83002; 83036; 83735; 84703; 85025; 96402; J9202

== ENCOUNTER 2024-02-20 13:30 | Day surgery (SDC) | payer OTHER ==
[2024-02-20 14:32] LABS: BASO % 0.7 % (0-2.0); EOS % 4.1 % (0-4.5); HEMATOCRIT 48.2 % (32.4-45.2); LYMPH % 31.6 % (8-40); MCHC 33.1 g/dl (32.0-36.0); MEAN CELL VOLUME 81.4 fl (80-96); MEAN PLT VOLUME 7.9 fl (7.5-11.1); MONO % 7.2 % (3.8-10.2); NEUT % 56.4 % (42.8-82.8); PLATELET COUNT 266 10^3/uL (134-434); RBC 5.92 M/mm3 (3.60-5.2); WHITE BLOOD COUNT 7.6 K/mm3 (4.0-10.0)
[2024-02-20 14:46] LABS: CHLORIDE 105 mmol/L (98-107); POTASSIUM 3.7 mmol/L (3.5-5.1); SODIUM 141 mmol/L (136-145)
[2024-02-20 14:48] LABS: ALBUMIN 3.9 g/dl (3.4-5.0); ANION GAP 4 mmol/L (4-13); BLOOD UREA NITROGEN 14.5 mg/dL (7-18); CALCIUM 9.7 mg/dL (8.5-10.1); CO2 32 mmol/L (21-32); GLUCOSE,RANDOM 131 mg/dL (74-106); MAGNESIUM 2.4 mg/dL (1.8-2.4)
[2024-02-20 14:51] LABS: SGOT/AST 26 U/L (15-37); SGPT/ALT 55 U/L (13-61)
[2024-02-20 14:52] LABS: CREATININE 0.9 mg/dL (0.55-1.3)
[2024-02-20 14:53] LABS: BILIRUBIN,TOTAL 0.5 mg/dL (0.2-1); TOT PROT 7.9 g/dl (6.4-8.2)
[2024-02-20] MEDS: GOSERELIN ACETATE 3.6 MG IMPLANT SYRINGE SQ ONE (14:53)
[2024-02-20 14:54] LABS: ALK PHOS 128 U/L (45-117)
[2024-02-20] MEDS: LIDOCAINE HCL 1%, 10 MG/ML (20ML VIAL) ID ONE (15:01)
[2024-02-20 16:10] VITALS: BP 136/89; PULSE 78; RESP 18; TEMP 98
== END 2024-02-20 15:10 | disposition home or self-care (01) ==
LOC: JONCCHEMO 13:30 → J7W 15:00 → JONCCHEMO 15:10
PROVIDERS: ATTEND Internal Medicine Hematology & Oncology
DX: Z51.11 Encounter for antineoplastic chemotherapy (principal); C50.919 Malignant neoplasm of unspecified site of unspecified female breast
CPT/HCPCS: 36415; 80053; 82306; 82670; 83735; 84703; 85025; 96401; J9202

== ENCOUNTER 2024-04-16 14:54 | Day surgery (SDC) | payer OTHER ==
[2024-04-16 14:27] LABS: BASO % 0.7 % (0-2.0); EOS % 4.3 % (0-4.5); HEMATOCRIT 47.3 % (32.4-45.2); HEMOGLOBIN 15.9 GM/dL (10.7-15.3); LYMPH % 31.4 % (8-40); MCH 27.5 pg (25.7-33.7); MCHC 33.5 g/dl (32.0-36.0); MEAN CELL VOLUME 82.1 fl (80-96); MONO % 7.5 % (3.8-10.2); NEUT % 56.1 % (42.8-82.8); PLATELET COUNT 313 10^3/uL (134-434); RBC 5.77 M/mm3 (3.60-5.2); RDW 14.9 % (11.6-15.6); WHITE BLOOD COUNT 8.4 K/mm3 (4.0-10.0)
[2024-04-16] MEDS: GOSERELIN ACETATE 3.6 MG IMPLANT SYRINGE SQ ONE (14:46)
[2024-04-16 14:48] LABS: CHLORIDE 103 mmol/L (98-107); POTASSIUM 3.8 mmol/L (3.5-5.1); SODIUM 140 mmol/L (136-145)
[2024-04-16] MEDS: LIDOCAINE HCL 1%, 10 MG/ML (20ML VIAL) ID ONE (14:49)
[2024-04-16 14:50] LABS: CALCIUM 9.9 mg/dL (8.5-10.1)
[2024-04-16 14:51] LABS: ALBUMIN 3.9 g/dl (3.4-5.0); ANION GAP 8 mmol/L (4-13); BLOOD UREA NITROGEN 9.9 mg/dL (7-18); CO2 29 mmol/L (21-32); GLUCOSE,RANDOM 99 mg/dL (74-106); MAGNESIUM 2.4 mg/dL (1.8-2.4)
[2024-04-16 14:54] LABS: CREATININE 0.8 mg/dL (0.55-1.3); SGOT/AST 26 U/L (15-37); SGPT/ALT 53 U/L (13-61)
[2024-04-16 14:56] LABS: BILIRUBIN,TOTAL 0.5 mg/dL (0.2-1)
[2024-04-16 14:57] LABS: ALK PHOS 138 U/L (45-117)
[2024-04-16 16:24] VITALS: BP 114/69; PULSE 87; RESP 20; TEMP 98.8
== END 2024-04-16 15:00 | disposition home or self-care (01) ==
LOC: JONCCHEMO 14:54
PROVIDERS: ATTEND Internal Medicine Hematology & Oncology
DX: Z51.11 Encounter for antineoplastic chemotherapy (principal); C50.812 Malignant neoplasm of overlapping sites of left female breast; Z17.0 Estrogen receptor positive status [ER+]
CPT/HCPCS: 36415; 80053; 82306; 82670; 83735; 84703; 85025; 96402; J9202

== ENCOUNTER 2024-05-14 14:00 | Day surgery (SDC) | payer OTHER ==
[2024-05-14 14:28] LABS: ABSOLUTE IMMATURE GRANULOCYTES 0.04 x10^3/uL (0.0-0.031); BASOPHILS # 0.08 x10^3/uL (0.01-0.08); EOSINOPHIL % 3.8 % (0.7-5.8); EOSINOPHILS # 0.31 x10^3/uL (0.04-0.36); HEMATOCRIT 48.2 % (34.1-44.9); HEMOGLOBIN 15.3 g/dL (11.2-15.7); MCHC 31.7 g/dl (32.2-35.5); MEAN CELL VOLUME 83.5 fl (79.4-94.8); MEAN PLT VOLUME 9.7 fl (9.4-12.3); MONOCYTE # 0.68 x10^3/uL (0.24-0.86); MONOCYTE % 8.2 % (4.7-12.5); PLATELET COUNT 278 x10^3/uL (182-369); RDW 13.2 % (12.2-17.1)
[2024-05-14 14:42] LABS: CHLORIDE 102 mmol/L (98-107); POTASSIUM 3.5 mmol/L (3.5-5.1); SODIUM 140 mmol/L (136-145)
[2024-05-14] MEDS: GOSERELIN ACETATE 3.6 MG IMPLANT SYRINGE SQ ONE (14:43)
[2024-05-14] MEDS: LIDOCAINE HCL 1%, 10 MG/ML (20ML VIAL) ID ONE (14:43)
[2024-05-14 14:44] LABS: CALCIUM 9.5 mg/dL (8.5-10.1)
[2024-05-14 14:45] LABS: ALBUMIN 3.8 g/dl (3.4-5.0); ANION GAP 6 mmol/L (4-13); BLOOD UREA NITROGEN 14.6 mg/dL (7-18); CO2 32 mmol/L (21-32); GLUCOSE,RANDOM 103 mg/dL (74-106)
[2024-05-14 14:46] LABS: MAGNESIUM 2.1 mg/dL (1.8-2.4)
[2024-05-14 14:48] LABS: SGOT/AST 26 U/L (15-37); SGPT/ALT 51 U/L (13-61)
[2024-05-14 14:49] LABS: BILIRUBIN,TOTAL 0.4 mg/dL (0.2-1); CREATININE 0.8 mg/dL (0.55-1.3); TOT PROT 7.7 g/dl (6.4-8.2)
[2024-05-14 14:51] LABS: ALK PHOS 123 U/L (45-117)
[2024-05-14 17:04] VITALS: BP 125/88; PULSE 82; RESP 18; TEMP 98.3
== END 2024-05-14 15:00 | disposition home or self-care (01) ==
LOC: JONCCHEMO 14:00
PROVIDERS: ATTEND Internal Medicine Hematology & Oncology
DX: Z51.11 Encounter for antineoplastic chemotherapy (principal); C50.412 Malignant neoplasm of upper-outer quadrant of left female breast
CPT/HCPCS: 36415; 80053; 82306; 82670; 83735; 84703; 85025; 96402; J9202

== ENCOUNTER 2024-07-09 14:17 | Day surgery (SDC) | payer OTHER ==
[2024-07-09 14:30] LABS: ABSOLUTE IMMATURE GRANULOCYTES 0.02 x10^3/uL (0.0-0.031); BASOPHILS # 0.07 x10^3/uL (0.01-0.08); EOSINOPHIL % 4.6 % (0.7-5.8); EOSINOPHILS # 0.34 x10^3/uL (0.04-0.36); HEMATOCRIT 45.9 % (34.1-44.9); HEMOGLOBIN 14.7 g/dL (11.2-15.7); MEAN CELL VOLUME 83.6 fl (79.4-94.8); MEAN PLT VOLUME 9.8 fl (9.4-12.3); MONOCYTE # 0.45 x10^3/uL (0.24-0.86); MONOCYTE % 6.1 % (4.7-12.5); PLATELET COUNT 275 x10^3/uL (182-369); RDW 13.4 % (12.2-17.1)
[2024-07-09] MEDS: LIDOCAINE HCL 1%, 10 MG/ML (20ML VIAL) ID ONE (14:51)
[2024-07-09] MEDS: GOSERELIN ACETATE 3.6 MG IMPLANT SYRINGE SQ ONE (14:51)
[2024-07-09 15:07] LABS: CHLORIDE 105 mmol/L (98-107); POTASSIUM 3.9 mmol/L (3.5-5.1); SODIUM 142 mmol/L (136-145)
[2024-07-09 15:09] LABS: CALCIUM 10.1 mg/dL (8.5-10.1)
[2024-07-09 15:10] LABS: ALBUMIN 3.8 g/dl (3.4-5.0); ANION GAP 7 mmol/L (4-13); BLOOD UREA NITROGEN 11.1 mg/dL (7-18); CO2 30 mmol/L (21-32); GLUCOSE,RANDOM 130 mg/dL (74-106); MAGNESIUM 2.2 mg/dL (1.8-2.4)
[2024-07-09 15:13] LABS: CREATININE 0.8 mg/dL (0.55-1.3); SGOT/AST 23 U/L (15-37); SGPT/ALT 46 U/L (13-61)
[2024-07-09 15:14] LABS: BILIRUBIN,TOTAL 0.5 mg/dL (0.2-1); TOT PROT 7.5 g/dl (6.4-8.2)
[2024-07-09 15:16] LABS: ALK PHOS 132 U/L (45-117)
[2024-07-09 16:09] VITALS: BP 122/83; PULSE 74; RESP 18; TEMP 98.5
[2024-07-10 08:07] LABS: FOLLICLE STIMULATING HORMONE 2.2 mIU/mL (.); LUTEINIZING HORMONE < 0.3 mIU/mL (.)
== END 2024-07-09 15:05 | disposition home or self-care (01) ==
LOC: JONCCHEMO 14:17
PROVIDERS: ATTEND Internal Medicine Hematology & Oncology
DX: Z51.11 Encounter for antineoplastic chemotherapy (principal); C50.812 Malignant neoplasm of overlapping sites of left female breast; Z17.0 Estrogen receptor positive status [ER+]
CPT/HCPCS: 36415; 80053; 82306; 82670; 83001; 83002; 83735; 84703; 85025; 96402; J9202

== ENCOUNTER 2024-10-29 13:44 | Day surgery (SDC) | payer OTHER ==
[2024-10-29] MEDS: GOSERELIN ACETATE 3.6 MG IMPLANT SYRINGE SQ ONE (14:27)
[2024-10-29] MEDS: LIDOCAINE HCL 1%, 10 MG/ML (20ML VIAL) ID ONE (14:27)
[2024-10-29 14:36] LABS: ABSOLUTE IMMATURE GRANULOCYTES 0.03 x10^3/uL (0.0-0.031); BASOPHILS # 0.08 x10^3/uL (0.01-0.08); EOSINOPHIL % 4.2 % (0.7-5.8); EOSINOPHILS # 0.36 x10^3/uL (0.04-0.36); MCHC 31.3 g/dl (32.2-35.5); MEAN CELL VOLUME 85.4 fl (79.4-94.8); MEAN PLT VOLUME 9.7 fl (9.4-12.3); MONOCYTE # 0.65 x10^3/uL (0.24-0.86); MONOCYTE % 7.6 % (4.7-12.5); RDW 13.3 % (12.2-17.1)
[2024-10-29 15:10] LABS: GLUCOSE,RANDOM 89 mg/dL (74-106); TOT PROT 8.1 g/dl (6.4-8.2)
[2024-10-29 15:11] LABS: CO2 30 mmol/L (21-32)
[2024-10-29 15:13] LABS: ALK PHOS 121 U/L (40-150)
[2024-10-29 15:15] LABS: SGOT/AST 27 U/L (5-34); SGPT/ALT 34 U/L (0-55)
[2024-10-29 15:16] LABS: CREATININE 0.73 mg/dL (0.55-1.3)
[2024-10-29 17:32] VITALS: BP 130/77; PULSE 64; RESP 18; TEMP 98.6
[2024-10-30 10:06] LABS: LUTEINIZING HORMONE < 0.3 mIU/mL (.)
== END 2024-10-29 14:30 | disposition home or self-care (01) ==
LOC: JONCNONCHE 13:44 → J7W 13:45 → JONCNONCHE 14:30
PROVIDERS: ATTEND Internal Medicine Hematology & Oncology
DX: Z51.11 Encounter for antineoplastic chemotherapy (principal); C50.812 Malignant neoplasm of overlapping sites of left female breast
CPT/HCPCS: 36415; 80053; 82306; 82670; 83001; 83002; 83735; 84703; 85025; J9202